=== PATIENT | female | born 1980 | race Caucasian/White ===

== ENCOUNTER 2023-11-20 11:29 | Emergency (ER) | payer MEDICAID, SELFPAY ==
[2023-11-20 11:33] VITALS: BP 162/64; PULSE 56; O2SAT 97
--- NOTE | 2023-11-20 11:37 | ED_ITS ---
HPI - General Adult General Chief complaint: General Medical Stated complaint: WEAK,NAUSEA PER EMS Time Seen by Provider: 11/20/23 21:54 Source: patient Mode of arrival: ambulatory Limitations: no limitations History of Present Illness HPI narrative: Patient from [facility] with history of alcoholic cirrhosis on lactulose could not get her medication for last 1 week comes here for medication refill. Patient denied any confusion no fever no abdominal pain denies any headache or loss of consciousness behaving normally no nausea no vomiting no black stool Related Data Previous Rx's ?Medication ?Instructions ?Recorded lactulose 10 gram/15 mL (15 mL) 45 ml PO TID #1,440 mL 11/20/23 oral solution Allergies Allergy/AdvReac Type Severity Reaction Status Date / Time No Known Allergies Allergy Verified 11/21/23 16:38 Review of Systems 2 Review of Systems: Yes all other systems are reviewed and are negative [facility] Social History Social History Advance Directives: No Advance Directives Information Provided: No Do you have a plan to hurt others: No Plan Physical Exam ED Vital Signs: Vital Signs - 24 hr 11/20/23 17:55 11/20/23 21:50 11/20/23 23:46 Temperature 98.0 F 98.3 F 98.3 F Pulse Rate 67 64 64 Respiratory Rate 16 20 20 Blood Pressure 106/63 116/48 L 116/48 L Pulse Oximetry 95 96 96 Oxygen Delivery Method Room Air Room Air Room Air BMI result Body Mass Index 28.9 Appearance: Alert. Oriented X3. No acute distress. Eyes: No pallor or icterus ENT: Pharynx normal. Oral Mucosa moist Neck: Normal inspection. Neck supple. CVS: Normal heart rate and rhythm. Pulses normal. Respiratory: No respiratory distress. Equal air entry bilateral, no wheezing/rales/rhonchi Abdomen: Soft and nontender. Bowel sounds are present, no mass palpable, no CVA tenderness Skin: Skin warm and dry. Normal skin color. Normal skin turgor. Extremities: No lower extremity edema. No calf tenderness Neuro: Oriented X 3. No motor deficit. No sensory deficit.No cerebellar signs , cranial nerves II-XII intact hepatic flap -ve Course Course Course Narrative: This is a rapid medical exam performed by C. Scooby, AMPOULE EXAMINER: Additional HPI, ROS, PE not included below will be deferred to primary provider. Patient is a 43-year-old female with history of liver disease presenting to the emergency department reporting that she has been out of lactulose for the past 4-5 days. She states that she was receiving lactulose while at [facility] and was discharged with a 1 day supply to sober living and has been without it for 4-5 days. Complains of feeling dizzy, weak, nauseous. Did receive methadone this morning. States she has some left of most of her medications but needs clonidine 0.1mg and lactulose 10g today. Plan: labs Medications Administered Discontinued Medications Generic Name Dose Route Start Last Admin Trade Name Freq PRN Reason Stop Dose Admin Lactulose 30 gm 11/20/23 22:36 11/20/23 22:59 Lactulose 20 Gm/30 Ml Solution PO 11/20/23 22:37 30 gm ONCE ONE Administration Medical Decision Making Medical Decision Making [facility] Narrative: Patient with history of chronic alcoholic cirrhosis without any encephalopathy with elevated ammonia level will prescribe lactulose advised to follow with gastroenterology Lab Data [facility] Lab Attestation statement: I reviewed the patient's lab results. 11/20/23 12:10 11/20/23 12:10 Labs: Lab Results 11/20/23 Range/Units 12:10 WBC 3.3 L (4.8-10.8) X10*3/uL RBC 3.98 L (4.20-5.50) X10*6/uL Hgb 12.0 (12.0-16.0) g/dl Hct 35.3 L (37.0-47.0) % MCV 88.7 (80.0-98.0) fL MCH 30.2 (27.0-33.0) pg MCHC 34.0 (31.0-35.0) g/dl RDW 16.9 H (11.0-16.0) % Plt Count 83 L (160-400) X10*3/uL MPV 8.9 L (9.4-12.3) fL Immature Gran % (Auto) 0.3 (0.0-0.4) % Neut % (Auto) 45.7 (45-73) % Lymph % (Auto) 37.5 (20-40) % Navarro % (Auto) 14.4 H (2-11) % Eos % (Auto) 1.8 (0-4) % Baso % (Auto) 0.3 (0-2) % Lymph # (Auto) 1.3 (1.2-4.9) X10*3/uL Navarro # (Auto) 0.5 (0.1-1.2) X10*3/uL Eos # (Auto) 0.1 (0.0-0.4) X10*3/uL Baso # (Auto) 0.0 (0.0-0.2) X10*3/uL Abs Immat Gran (auto) 0.01 (0.00-0.03) X10*3/uL Absolute Neuts (auto) 1.5 L (2.0-8.3) x10*3/uL Absolute Nucleated RBC 0.000 (0.0-0.012) X10*3/uL Nucleated RBC % (auto) 0.0 (0.0-0.2) /100WBC Sodium 140 (135-145) mmol/L Potassium 4.5 (3.3-5.1) mmol/L Chloride 105 (96-108) mmol/L Carbon Dioxide 25 (22-29) mmol/L Anion Gap 15 (12-20) BUN 18 H (9-16) mg/dL Creatinine 1.23 (0.5-1.4) mg/dL Estim Creat Clear Calc 55.3 Estimated GFR 48 Random Glucose 74 (60-115) mg/dL Calcium 9.8 (8.4-10.2) mg/dL Total Bilirubin 1.4 H (0.0-1.0) mg/dL AST 61 H (5-31) U/L ALT 35 H (0-31) U/L Alkaline Phosphatase 89 (39-117) U/L Ammonia 98 H (13-55) umol/L Total Protein 7.2 (6.5-8.0) g/dL Albumin 3.6 (3.5-5.0) g/dL Amylase 93 (28-100) U/L Lipase 43 (8-78) U/L Beta HCG, Quant < 2 mIU/mL Discharge Plan Discharge Clinical Impression: Alcoholic cirrhosis Patient Disposition: Home, Self-Care Instructions: Cirrhosis (ED) Additional Instructions: Continue your medication follow with your liver specialist Prescriptions: New lactulose 10 gram/15 mL (15 mL) solution 45 ml PO TID Qty: 1440 3RF Referrals: Bennett Dickerson MD [Physician] - 1 week Interventions: ED Discharge Assessment Last Done: 11/20/23 23:46 Discharge Date/Time: 11/20/23 23:47 Print Language: Irish
[2023-11-20 12:01] VITALS: BP 109/55; PULSE 61; RESP 16; TEMP 36.6; O2SAT 97; BMI 28.9
[2023-11-20 12:15] LABS: MANUAL DIFF FLAG NO
[2023-11-20 12:17] LABS: Basophils Percent Auto 0.3 % (0-2); Eosinophils Absolute Auto 0.1 X10*3/uL (0.0-0.4); Eosinophils Percent Auto 1.8 % (0-4); Hematocrit 35.3 % (37.0-47.0); Imm Gran Abs Auto 0.01 X10*3/uL (0.00-0.03); Imm Gran Pct Auto 0.3 % (0.0-0.4); Lymphocytes Absolute Auto 1.3 X10*3/uL (1.2-4.9); Lymphocytes Percent Auto 37.5 % (20-40); Mean Corpuscular Hemoglobin 30.2 pg (27.0-33.0); Mean Corpuscular Volume 88.7 fL (80.0-98.0); Monocytes Absolute Auto 0.5 X10*3/uL (0.1-1.2); Monocytes Percent Auto 14.4 % (2-11); Neutrophils Absolute Auto 1.5 x10*3/uL (2.0-8.3); Neutrophils Percent Auto 45.7 % (45-73); Red Blood Count 3.98 X10*6/uL (4.20-5.50); Red Cell Distribution Width 16.9 % (11.0-16.0); White Blood Count 3.3 X10*3/uL (4.8-10.8)
[2023-11-20 12:22] LABS: Ammonia 98 umol/L (13-55)
[2023-11-20 12:30] LABS: Alanine Aminotransferase 35 U/L (0-31); Albumin Level 3.6 g/dL (3.5-5.0); Alkaline Phosphatase 89 U/L (39-117); Amylase 93 U/L (28-100); Anion Gap 15 (12-20); Aspartate Amino Transferase 61 U/L (5-31); Bilirubin Total 1.4 mg/dL (0.0-1.0); Blood Urea Nitrogen 18 mg/dL (9-16); Calcium 9.8 mg/dL (8.4-10.2); Carbon Dioxide 25 mmol/L (22-29); Chloride 105 mmol/L (96-108); Creatinine Clr Calc Pharmacy 55.3; Estimated Glomerular Filt Rate 48; Glucose Random 74 mg/dL (60-115); Lipase 43 U/L (8-78); Potassium 4.5 mmol/L (3.3-5.1); Sodium 140 mmol/L (135-145); Total Protein 7.2 g/dL (6.5-8.0)
[2023-11-20 12:35] LABS: Mean Platelet Volume 8.9 fL (9.4-12.3); Platelet Count 83 X10*3/uL (160-400)
[2023-11-20 17:55] VITALS: BP 106/63; PULSE 67; RESP 16; TEMP 36.7; O2SAT 95
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
--- OUTSIDE RECORDS SUMMARY | 2023-11-20 18:01 | XMS_ITS | Continuity of Care Document ---
Author Organization [facility] Address [address] [place] [phone]- Care Team Providers Care Slurry Blender Name Role Phone Theodora Goode MD Primary Care Physician Encounter [facility] [id number] Date(s): 04/20/21 - 04/20/[address] [address]- Discharge Disposition: A-D/C Walkout Attending Physician: Not on Staff, Attending MD Admitting Physician: Not on Staff, Admitting MD Referring Physician: Not on Staff, Referring [...] 10/04/20 16:27:00 EDT, Route to Pharmacy Electronically, [facility] #[id number], Partial fill upon patientrequest if the prescription [...] 11/28/20 9:58:00 EDT, Route to Pharmacy Electronically, [facility], Partial fill upon patient request if the prescription is for a schedul... Start Date: 11/28/20 Stop Date: 12/05/20 Status: Ordered lactulose 10 gm/15 ml oral syrup 30 mL = 20 Gm, By Mouth, 4 times a day, # 3,600 mL, 0 Refills, Maintenance, 10/04/20 16:28:00 EDT, Syrup, [facility] #[id number], Partial fill upon patient request if the [...] Refills, Maintenance, 10/31/20 18:10:00 EDT, EC Tablet, [facility] #[id number], Partial fill upon patient request if the [...] 0 Refills, Maintenance, 10/04/20 16:27:00 EDT, Tablet, [facility] #[id number], Partial fill upon patient request if the prescription is for a schedule II opioid drug., 157.5, cm, 10/04/20 14:02:00 E... Start Date: 10/04/20 Status: Ordered Zofran 4 mg oral tablet 1 tablet = 4 mg, By Mouth, Every 8 hours, PRN as needed for nausea/vomiting, # 270 tablet, 3 Refills, Maintenance, 10/31/20 18:10:00 EDT, Tablet, [facility] #[id number], Partial fill upon patient request if the [...]
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
--- OUTSIDE RECORDS SUMMARY | 2023-11-20 18:01 | XMS_ITS | Continuity of Care Document ---
Author Organization [facility] ter Address [address] [place] [id number]- Care Team Providers Care Anesthesiologist Attending Name Role Phone Bo Espinoza Primary Care Physician Encounter [facility] [place] Date(s): 05/09/22 - 06/09/[address] [address] Attending Physician: Sukhwinder Nguyen MD Admitting Physician: Sukhwinder Nguyen MD Allergies, Adverse Reactions, Alerts Substance Reaction Severity Status Egg Allergy Active Immunizations Given and Recorded Vaccine Date Status Refusal Reason SARS-CoV-2 (COVID-19) mRNA-1273 vaccine 04/29/21 R ecorded [...] vaccine within the last 5 years Medications cyclobenzaprine 10 mg oral tablet 10 mg, 1, tablet, By Mouth, Daily at bedtime, PRN, Maintenance, Spasm, 05/12/22 9:39:00 EDT, Partial fill upon patient request if the prescription is for a schedule II opioid drug. Start Date: 05/12/22 Status: Ordered gabapentin 800 mg oral tablet 1 tablet = 800 mg, By Mouth, 3 times a day, for pain, # 60, 2 Refills, Maintenance, 05/18/22 9:32:00 EST, Partial fill upon patient request if the prescription is for a schedule II opioid drug. Start Date: 05/18/22 Status: Ordered lactulose 10 gm/15 ml oral syrup 30 mL = 20 Gm, By Mouth, 4 times a day, # 1,680 mL, 3 Refills, Maintenance, 05/01/22 9:45:00 EDT, Syrup, [facility]/pharmacy #[id number], Partial fill upon patient request if the prescription is for a schedule IIopioid drug., 30 mL By Mouth 4 times a day,x14 days... Start Date: 05/01/22 Stop Date: 06/26/22 Status: Ordered Lasix 20 mg oral tablet 20 mg, 1, tablet, By Mouth, Daily, # 30 tablet, Refills 0, Tot. Refills 0, Maintenance, 05/23/22 13:04:00 EST, Route to Pharmacy Electronically, [facility], Partial fill upon patient request if the prescription is for a schedule II opioi... Start Date: 05/23/22 Status: Ordered Methadone = 24 mg, By Mouth, Daily, 0 Refills, Maintenance, 05/12/22 9:40:00 EDT, Partial fill upon patient request if the prescription is for a schedule II opioid drug. Start Date: 05/12/22 Status: Ordered spironolactone 100 mg oral tablet 100 mg, 1, tablet, By Mouth, Daily, # 30 tablet, Refills 0, Tot. Refills 0, Maintenance, 05/22/22 13:39:00 EST, Route to Pharmacy Electronically, [facility], Partial fill upon patient request if the prescription is for a schedule II opio... Start Date: 05/22/22 Stop Date: 06/21/22 Status: Ordered Zofran 4 mg oral tablet 1 tablet = 4 mg, By Mouth, Every 8 hours, PRN as needed for nausea/vomiting, # 40 tablet, 2 Refills, Maintenance, 02/02/22 10:18:00 EDT, Tablet, [facility]/pharmacy #[id number], Partial fill upon patient request [...] Team Personnel Name: Bj Rivera MD Position: [facility] GI MD Member Role: Lifetime Consulting Physician Address: Address: [address] [place] [address], [address] [facility] [place] [address]- [place] Name: Aimee Pereira RN Position: [facility] RN Member Role: Primary Care Nurse Name: Linda Sandy RN Position: [facility] RN Member Role: Primary Care Nurse Name: Isabella Merlos RN Position: [facility] RN Member Role: Primary Care Nurse Name: Luke Russell RN Position: [facility] RN Member Role: Primary Care Nurse Name: Virgil Campos RN Position: [facility] RN Member Role: Primary Care Nurse Name: Cliff Mo RN Position: [facility] RN Member Role: Primary Care Nurse Name: Goldy Lamar Position: [facility] RN Member Role: Primary Care Nurse Name: Katina Kelly RN Position: [facility] RN Member Role: Primary Care Nurse Name: Rubia Merida RN Position: [facility] RN Member Role: Primary Care Nurse Name: Jonh Melgar MD Position: [facility] Physician -Physician Practices Member Role: Lifetime Consulting Physician Address: Address: [address] [place] [address]- [place] Name: Anibal Peace RN Position: [facility] RN Member Role: Primary Care Nurse Name: Colleen Leal RN Position: [facility] RN Member Role: Primary Care Nurse Name: Davonte Rosario RN Position: [facility] RN Member Role: Primary Care Nurse Name: Kemal Pulido MD Position: [facility] Renal MD Member Role: Lifetime Consulting Physician Address: Address: [address] [facility] [place] [address]- [place] Name: Mariam Melendrez RN Position: [facility] RN Member Role: Primary Care Nurse Name: Leticia Lobato RN Position: [facility] RN Member Role: Primary Care Nurse Name: Bo Espinoza Position: [facility] Outreach Member Role: PCP Address: Address: [address] [place] [address]- Name: Kyle Lui RN Position: [facility] RN Member Role: Primary Care Nurse Name: Janett Mendoza RN Position: S RN Member Role: Primary Care Nurse Name: Dimas Vazquez RN Position: [facility] RN Member Role: Primary Care Nurse Name: Tyson Blum MD Position: [facility] Renal MD Member Role: Lifetime Consulting Physician Address: Address: [address] [facility] [place] [address]- Name: Emma Barkley RN Position: [facility] RN Member Role: Primary Care Nurse Name: Emma Hardy RN Position: [facility] RN Member Role: Primary Care Nurse Name: Janell Gomez Position: [facility] RN Member Role: Primary Care Nurse Name: Orlando Conn RN Position: [facility] RN Member Role: Primary Care Nurse Care Team Related Persons Name: MELANIE AGGARWAL Address: [address] [place] [address] Name: LUIS F ROBERTS Address: home [address] [place] [address]
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
--- OUTSIDE RECORDS SUMMARY | 2023-11-20 18:01 | XMS_ITS | Continuity of Care Document ---
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 Start Date: 11/08/21 Status: Ordered Epclusa 400 mg-100 mg oral tablet 1 tablet, By Mouth, Daily, for 24 week(s), # 168 tablet, 0 Refills, Acute 04/20/22 15:20:00 EDT, 11/03/21 15:20:00 EDT, Tablet, [facility], Partial fill upon patient request if the prescription is for a schedule II opioid drug., 158,... Start Date: 11/03/21 Stop Date: 04/20/22 Status: Ordered gabapentin 300 mg oral capsule 600 mg, 2, capsule, By Mouth, 2 times a day, # 28 capsule, Refills 0, Tot. Refills 0, Maintenance, 06/08/21 8:48:00 EST, Route to Pharmacy Electronically, [facility]/pharmacy #[id number], Partial fill upon patient request if the prescription is for a schedule II o... Start Date: 06/08/21 Stop Date: 06/15/21 Status: Ordered lactulose 10 gm/15 ml oral syrup 30 mL = 20 Gm, By Mouth, 4 times a day, # 840 mL, 0 Refills, Maintenance, 01/10/22 16:05:00 EDT, Syrup, [facility]/pharmacy #[id number], Partial fill upon patient request if the prescription is for a schedule II opioid drug., 30 mL By Mouth 4 times a day,x7 days,... Start Date: 01/10/22 Stop Date: 01/17/22 Status: Ordered Lasix 40 mg oral tablet 40 mg, 1, tablet, By Mouth, Daily, # 30 tablet, Refills 3, Tot. Refills 3, Maintenance, 12/29/21 14:22:00 EDT, Route to Pharmacy Electronically, [facility] #[id number], Partial fill upon patient request if the prescription is for a schedule II opioid drug... Start Date: 12/29/21 Status: Ordered methadone 10 mg/5 mL oral solution 11 mL = 22 mg, By Mouth, Daily, 0 Refills, Maintenance, 11/12/21 10:14:00 EDT, Solution, Partial fill upon patient request if the prescription is for a schedule II opioid drug. Start Date: 11/12/21 Status: Ordered spironolactone 100 mg oral tablet 100 mg, 1, tablet, By Mouth, Daily, # 7 tablet, Refills 0, Tot. Refills 0, Maintenance, 06/08/21 8:48:00 EST, Route to Pharmacy Electronically, [facility] #[id number], Partial fill upon patient request if the prescription is for a schedule II opioid drug.... Start Date: 06/08/21 Stop Date: 06/15/21 Status: Ordered Zofran 4 mg oral tablet 1 tablet = 4 mg, By Mouth, Every 8 hours, PRN as needed for nausea/vomiting, # 40 tablet, 2 Refills, Maintenance, 12/20/21 14:25:00 EDT, Tablet, [id number], Partial fill upon patient request if the prescription is for a schedule II opioid drug... Start Date: 12/20/21 Status: Ordered Problem List Condition Effective Dates [...]
--- OUTSIDE RECORDS SUMMARY | 2023-11-20 18:01 | XMS_ITS | Continuity of Care Document ---
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 Start Date: 11/03/21 Stop Date: 04/20/22 Status: Ordered gabapentin 300 mg oral capsule 600 mg, 2, capsule, By Mouth, 2 times a day, # 28 capsule, Refills 0, Tot. Refills 0, Maintenance, 12/02/21 8:48:00 EST, Route to Pharmacy Electronically, [facility] #[id number], Partial fill upon patient request if the prescription is for a schedule II o... Start Date: 06/08/21 Stop Date: 06/15/21 Status: Ordered lactulose 10 gm/15 ml oral syrup 30 mL = 20 Gm, By Mouth, 4 times a day, # 840 mL, 0 Refills, Maintenance, 01/10/22 16:05:00 EDT, Syrup, [id number], Partial fill upon patient request [...] 8:48:00 EST, Route to Pharmacy Electronically, [facility][id number], Partial fill upon patient request if [...]
--- OUTSIDE RECORDS SUMMARY | 2023-11-20 18:01 | XMS_ITS | Continuity of Care Document ---
Author Organization [facility] Address [address] [place] [phone]- Care Team Providers Care Office Director Name Role Phone Rupa FERNANDEZ, Theodora Melendez Primary Care Physician En[place] [facility] [place](s): 07/31/21 - 08/31/21 [facility] [address] [place] [phone]- Attending Physician: Bj Rivera MD Admitting Physician: Bj Rivera MD Referring Physician: Theodora Goode MD Allergies, Adverse Reactions, Alerts No Known [...] 06/08/21 8:45:00 EST, Route to Pharmacy Electronically, [facility] #[id number], Partial fill upon patient request ifthe prescription is for a schedule II opioid drug.,... Start Date: 06/08/21 Stop Date: 06/15/21 Status: Ordered furosemide 40 mg oral tablet 40 mg, 1, tablet, By Mouth, 2 times a day, # 14 tablet, Refills 0, Tot. Refills 0, Maintenance, 06/08/21 8:47:00 EST, Route to Pharmacy Electronically, [facility]/pharmacy #[id number], Partial fill upon patient request if the prescription is for a schedule II opio... Start Date: 06/08/21 Stop Date: 06/15/21 Status: Ordered gabapentin 300 mg oral capsule 300 mg, 1, capsule, By Mouth, 3 times a day, # 21 capsule, Refills 0, Tot. Refills 0, Maintenance, 06/08/21 8:48:00 EST, Route to Pharmacy Electronically, [facility]/pharmacy #[id number], Partial fill upon patient request if the prescription is for a schedule II o... Start Date: 06/08/21 Stop Date: 06/15/21 Status: Ordered lactulose 10 gm/15 ml oral syrup 30 mL = 20 Gm, By Mouth, 4 times a day, # 840 mL, 0 Refills, Maintenance, 06/08/21 8:45:00 EST, Syrup, [facility]/pharmacy #[id number], Partial fill upon patient request if [...] 06/08/21 8:48:00 EST, Route to Pharmacy Electronically, [facility]/pharmacy #[id number], Partial fill upon patient request if [...]
--- OUTSIDE RECORDS SUMMARY | 2023-11-20 18:01 | XMS_ITS | Continuity of Care Document ---
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 people with colds, bronchitis, or skin conditions. ??? Practice good personal??hygiene. Wash your hands often. This is especially important if you have a catheter in place when you leave the hospital. Doing so helps keep you safe from infection. ??? Take your medicines exactly as directed. ??? You may need frequent blood and urine tests. These are done to monitor your kidney function. ?? Follow-up care Follow up with your healthcare provider, or as advised. ?? When to call your healthcare provider Call your??healthcare provider??right away if you have any of these: ??? Signs of bladder infection, such as urinating more often, burning or pain when you pee, pain above your pubic bone, blood in your urine, or trouble starting your urine stream ??? Signs of infection around your catheter, such as redness, swelling, warmth, or fluid leaking ??? Rapid weight loss or weight gain, such as 3??pounds or more in 24 hours or 6 pounds or more in 7 days ??? Fever above 100.4?? F ( 38??C ) or as directed by your healthcare provider ??? Chills ??? Muscle aches ??? Night sweats ??? Very little or no urine output ??? Swelling of your hands, legs, or feet ??? Back pain ??? Abdominal pain ??? Extreme tir edness ?? Last Reviewed Date: 2019 ?? [id number] Anonymous You. All rights reserved. This information is not intended as a substitute for professional medical care. Always follow your healthcare professional's instructions. ?? * Event Display: Cardiac Rhythm Strips Authored Date: Hospital Progress note * Brandy Arreola RN: PERFORM, SIGN, VERIFY Event Display: Progress Note Hospital Authored Date: Patient: YUDI CALDERON Age: 41 years Sex: Female : 1980 Associated Diagnoses: None Author: Brandy Arreola RN Findings Problem Related to Alteration in Genitourinary : Alteration in Genitourinary Function/new 05/23/2022 9:00 EST Alteration in Status Related to Other: LELE abd pain Goals & Outcomes, Genitourinary Pt will achieve normal/improved fluid balance, Pt will maintainadequate GI function appropriate for pt, Pt will maintain adequate function appropriate for pt, Pt will maintain normal fluid balance, Pt will resume normal pattern of elimination, Pt/caregiver will state understanding of self-care skills Interventions, Assess/monitor/maintain Genitourinary status, Assist & encourage pt with meticulous vale care, Encourage PO fluid intake as allowed by diet BH Goals/Interventions, Genitourinary Yes Genitourinary, Problem Start 05/23/2022 9:00 Reviewed Plan with, Genitourinary Patient Patient Progression, Genitourinary Plan Initiation Genitourinary, Problem Ongoing Yes . Nursing Data Genitourinary Data. : Genitourinary Data. 05/23/2022 9:00 EST Genitourinary Symptoms Decreased urine output WNL except . Evaluation Pt alert and oriented x4. Lethargic, appears under the influence at times. FRANKLIN strong, able to ambulate to BR with supervision. Denies any pain or discomfort at time of assessment. Trace edema BLE. SR on tele. LSCTA, no s/s of resp distress/SOB. POS BS all quads, abd soft/nontender. Denies any hematuria, or discomfort with urination. Informed pt urine sample was needed, pt stated she was aware. Pt currently asleep in bed, safety precautions in place.. * Erma Dodson RN: PERFORM, SIGN, VERIFY Event Display: Progress Note Hospital Authored Date: Patient: YUDI CALDERON Age: 41 years Sex: Female : 1980 Associated Diagnoses: None Author: Erma Dodson RN Findings Evaluation (Paient A+Ox3. Sleepy most of the day. Tele monitor shows SR. Patient self removed IV this morning and refuses any further IVF, Dr. Figueredo aware. IV abx changed to PO. Continues to have hematuria, urine specimen sent. Ambulates independently. Will monitor.) Discharge Information Case Management Discharge Plan : Case Management Discharge Plan Data 05/15/2022 15:36 EST Discharge Level of Care at Discharge Home/Assisted/Foster Care * Bea FERNANDEZ, Dannie: PERFORM Event Display: Progress Note Hospital Authored Date: Patient: ??YUDI CALDERON ? Age:??41 Years?Sex:??Female?:??1980?? Subjective Follow-up on abdomen pain,??acute kidney injury,??urinary tract infection. ?? Patient seen and evaluated in a.m. Patient not very cooperative, ripped out IV access Complains of hand pain Creatinine better,??recommended to drink p.o. more CT sonogram???unremarkable Still waiting for UA and??ammonia No mental status changes ? Possible discharge home tomorrow/Saturday if abdomen pain and??creatinine better ? Review of Systems No fever,??no headache?? complains of dysuria, low urine output-drinking more water, Complains of abdomen pain bilateral flank, ??more on left??quadrant???no diarrhea Patient ambulates slowly ??holding abdomen due to pain No nausea vomiting or diarrhea ?? Most of the review of systems is negative Review of Systems Objective Measurements?? Weight: 68.1 kg (05/20/22) ?? Vital Signs?? Temperature: 98.1 DegF (05/22/22 10:45:00) Temperature Route: Oral (05/22/22 10:45:00) Pulse Rate: 86 bpm (05/22/22 10:45:00) Respiratory Rate: 18 br/min (05/22/22 10:45:00) Systolic Blood Pressure: 95 mm Hg (05/22/22 10:45:00) Diastolic Blood Pressure:??51 mm Hg??Low (05/22/22 10:45:00) Blood pressure sites: Arm, left (05/22/22 10:45:00) Mean Arterial Pressure: 71 mm Hg (05/22/22 03:32:00) Pulse Pressure: 60 mm Hg (05/22/22 03:32:00) Oxygen Saturation: 100 % (05/22/22 10:45:00) Mode of Delivery (Oxygen): Room air (05/22/22 10:45:00) Early Warning Score:??10??Critical (05/22/22 10:47:19) ? Intake/Output? 05/20 23:58 05/22 07:00 05/21 07:00 05/20 07:00 05/19 07:00 ?? 05/22 11:42 05/22 11:42 05/22 06:59 05/21 06:59 05/20 06:59 Intake ? 1575 ?275 ? 1300 ?0 ?0 Output ?0 ?0 ?0 ?0 ?0 Net Total ? 1575 ?275 ? 1300 ?0 ?0 ? Urine Count ?1 ?1 ?0 ?0 ?0 ? Physical Exam ? General:??Alert, awake, not in?? acute cardiopulmonary distress.?? Conversant, complains of bilateral flank pain and abdomen pain, more on left side Eyes:??no eye redness Ear, Nose and Throat:??Oropharynx clear, mucous membranes moist.??no thrush Neck:??Supple, Full range of motion. Respiratory:??Clear to auscultation??. No wheezing, rales or rhonchi. Cardiovascular:??Heart sounds normal. Regular rate and rhythm, no murmurs Gastrointestinal:??Abdomen mildly distended,??tenderness on lower abdomen,??bilateral abdomen, epigastric tenderness-better Genitourinary:??No costovertebral angle tenderness. Neurologic:??Cranial nerves II-XII grossly intact. No focal neurological deficits.?? Skin:??No rashes or lesions. No edema. Musculoskeletal:??No cyanosis or clubbing. No gross deformities. _ Home Medications Celecoxib (celecoxib 200 mg oral capsule)?1?capsule?200?Milligram?By Mouth?2 times a day?as needed for pain Cyclobenzaprine (cyclobenzaprine 10 mg oral tablet)?10?Milligram?1?tablet?By Mouth?Daily at bedtime?as needed?Spasm Furosemide (Lasix 40 mg oral tablet)?40?Milligram?1?tablet?By Mouth?Daily?for 30?Days Gabapentin (gabapentin 800 mg oral tablet)?1?tab(s)?800?Milligram?By Mouth?3 times a day?for pain Lactulose (lactulose 10 gm/15 ml oral syrup)?30?Milliliter?20?gram?By Mouth?4 times a day?for 14?Days Methadone?24?Milligram?By Mouth?Daily Ondansetron (Zofran 4 mg oral tablet)?1?tab(s)?4?Milligram?By Mouth?Every 8 hours?as needed?as needed for nausea/vomiting Spironolactone (spironolactone 100 mg oral tablet)?100?Milligram?1?tablet?By Mouth?Daily?for 30?Days ? Inpatient Medications Medications (16) Active SCHEDULED: (7) Ceftriaxone 1 Gm Inj (Rocephin Inj) ??1 Gm, IVPB, Every 24 hours Gabapentin 300 mg Capsule (gabapentin 300 mg oral capsule) ??300 mg, By Mouth, 2 times a day Heparin 5000 units/mL Inj (1 mL) (Heparin Inj) ??5,000 units 1 mL, Subcutaneous Injection, 3 times a day Lactulose 20 Gm/30mL Syrup (lactulose 10 gm/15 ml oral syrup) ??20 Gm 30 mL, By Mouth, 3 times a day Methadone 5 mg Tablet (methadone 10 mg oral tablet) ??25 mg, By Mouth, Daily NaCl 0.9% Flush 3ml (NaCL 0.9% Flush) ??3 mL, IV Push, Every 8 hours Phenazopyridine 100 mg Tablet (Pyridium Tablet) ??100 mg, By Mouth, 2 times a day CONTINUOUS: (1) Lactated Ringers (1000 mL) Cont IV 1,000 mL (Lactated Ringers 1,000 mL) ??1,000 mL, IV Infusion, 100 mL/hr PRN: (8) Acetaminophen 325 mg Tablet (Tylenol 325 mg oral tablet) ??650 mg, By Mouth, Every 6 hours Dextromethorphan-Guaifenesin 20 mg-200 mg/10 mL Liqu UD (Robitussin DM Liquid) ??10 mL, By Mouth, Every 4 hours HYDROmorphone 0.5 mg/0.5 mL Inj Syringe (Dilaudid Inj) ??0.5 mg 0.5 mL, IV Push Slowly, Every 4 hours Melatonin 3 mg Tablet (Melatonin Tablet) ??3 mg, By Mouth, Daily at bedtime NaCl 0.9% Flush 3ml (NaCL 0.9% Flush) ??3 mL, IV Push, Every 8 hours Ondansetron 4 mg ODT (ondansetron 4 mg oral tablet, disintegrating) ??4 mg, By Mouth, Every 6 hours Polyethylene Glycol 17 Gm Powder (MiraLax Powder) ??17 Gm 1 pack/packet, By Mouth, Daily Simethicone 80 mg Chewable Tablet (Simethicone Tablet) ??80 mg, Chew, 3 times a day ? Results Recent Labs BLOOD COUNT & DIFF WBC 2.3 k/mm3 (Low)?? 05/22/2022 01:51 RBC 2.42 m/mm3 (Low)?? 05/22/2022 01:51 Hgb 7.3 Gm/dL (Low)?? 05/22/2022 01:51 Hct 22.4 % (Low)?? 05/22/2022 01:51 MCV 92.6 femtoliters ()?? 05/22/2022 01:51 MCH 30.2 pg ()?? 05/22/2022 01:51 MCHC 32.6 g/dL (Low)?? 05/22/2022 01:51 Platelet Count 68 k/mm3 (Low)?? 05/22/2022 01:51 RDW-SD 57.1 femtoliters (High)?? 05/22/2022 01:51 MPV 11.7 femtoliters ()?? 05/22/2022 01:51 Nucleated RBC (Automated) 0.0 #/100 WBC'S ()?? 05/22/2022 01:51 Abs. NRBC 0.0 k/mm3 ()?? 05/22/2022 01:51 ?? CHEM GENERAL Sodium 140 mmol/L ()?? 05/22/2022 01:51 Potassium 4.3 mmol/L ()?? 05/22/2022 01:51 Chloride 108 mmol/L (High)?? 05/22/2022 01:51 Bicarbonate Level 27 mmol/L ()?? 05/22/2022 01:51 Anion Gap 5 ()?? 05/22/2022 01:51 Glucose Level 92 mg/dL ()?? 05/21/2022 03:28 BUN 30 mg/dL (High)?? 05/21/2022 03:28 Creatinine-Blood 2.0 mg/dL (High)?? 05/22/2022 01:51 Estimated GFR Creatinine 31 ML/MIN/1.73 M2 ()?? 05/22/2022 01:51 Calcium 8.5 mg/dL (Low)?? 05/21/2022 03:28 Magnesium 2.1 mg/dL ()?? 05/22/2022 01:51 Protein, Total 4.7 Gm/dL (Low)?? 05/21/2022 03:28 Albumin 2.3 Gm/dL (Low)?? 05/21/2022 03:28 LDH 433 units/L (High)?? 05/21/2022 03:28 Alkaline Phosphatase 151 units/L (High)?? 05/21/2022 03:28 Lipase 45 units/L ()?? 05/21/2022 03:28 AST (SGOT) 153 units/L (High)?? 05/21/2022 03:28 ALT (SGPT) 52 units/L (High)?? 05/21/2022 03:28 Bilirubin, Total 2.3 mg/dL (High)?? 05/21/2022 03:28 Bilirubin, Direct 1.4 mg/dL (High)?? 05/21/2022 03:28 Bilirubin, Indirect 0.9 mg/dL (High)?? 05/21/2022 03:28 Lactate 1.9 mmol/L ()?? 05/21/2022 03:28 C-Reactive Protein 0.4 mg/dL ()?? 05/22/2022 01:51 ?? IMMUNOLOGY GENERAL Haptoglobin <10 mg/dL (Low)?? 05/21/2022 03:28 ?? TOXICOLOGY/TDM Ethanol, Serum or Plasma NONE DETECTED mg/dL ()?? 05/21/2022 03:28 ?? VIROLOGY COVID-19 PCR Specimen Source NASAL ()?? 05/21/2022 00:15 COVID-19 PCR Result NEGATIVE ()?? 05/21/2022 00:15 ? Assessment/Plan ?? with resolved splenomegaly, unchanged tubes, unchanged left nephroureteral stent at mild left pelvocaliectasis.?? Patient received lactulose, KCl 40 mEq and 1 L fluid bolus and will be admitted to observation medicine service for further management for abdomen pain, dysuria,??acute kidney injury ? LELE (acute kidney injury) Burning urination:??Presumed urinary tract infection History of obstructive uropathy S/p??left ureteral stent Complains of dysuria, UA pending?? low urine output??on admission Will hold off on Lasix and spironolactone??for now??until LELE resolves Follow with renal ultrasound Bladder scan??every shift??for any urinary retention, if retaining will do??straight cath/[place] CT abdomen???Unchanged left nephroureteral stent and mild left pelvocaliectasi??without mental status changes Had significant dysuria??added Rocephin??even though urine is pending Abdomen sonogram -Cirrhotic appearance to the liver. Minimal ascites. Patient ripped out IV access,??does not want IV fluid???01/19 hold off on celecoxib???Home medication Continue Dilaudid,??gabapentin,??methadone Continue??Rocephin for UTI ? Alcoholic liver cirrhosis Transaminitis -elevated LFTs above baseline Hyperammonemia??without??mental status changes ??trend LFTs Lasix and spironolactone on hold due to LELE Continue lactulose Monitor ammonia-no mental status changes ? opioid use disorder - on methadone 25??mg daily?? verified?? dose???continue methadone ? Code???full, confirmed with patient at bedside Diet???cardiac DVT prophylaxis???subcu heparin ? Discharge plan???if abdomen pain better,??creatinine better, possible discharge home tomorrow??Saturday.?? pl Recheck UA before discharge * Bea FERNANDEZ, Dannie: PERFORM Event Display: Progress Note Hospital Authored Date: [id number] Currently on IV Rocephin for extreme dysuria, UA pending. ??Patient refused IV access, ripped out her IV. ??Rocephin changed to p.o. Keflex CT Abdomen and Pelvis WO contrast * JAYASHREE Clifton S: TRANSCAbdirahman Corbett MD: VERIFY Bola Bartlett MD: SIGN Event Display: Result: Authored Date: [id number] CT Abdomen and Pelvis W/O Contrast HISTORY: Pain. Left flank pain. TECHNIQUE: Spiral CT through the abdomen and pelvis without IV contrast formatted in 3 planes. Thisstudy was performed oral contrast. Weight-based protocol using automatic tube modulation was used to optimize exposure parameters. CTDIvol Body: 10.70 mGy, DLP Body: 529 mGy*cm. COMPARISON: 05/11/2022. 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 Visualized Chest: Lung bases are clear. No pleural effusion. The heart is normal in size. No pericardial effusion. Diaphragm: Normal. Liver: Unchanged TIPS. Gallbladder: Not well visualized due to motion artifact. Bile ducts: No biliary ductal dilation. Spleen: Resolved splenomegaly. Pancreas: Normal. Adrenal glands: Normal. Kidneys and ureters: Unchanged mild left pelvocaliectasis. No renal stones. No suspicious masses. Unchanged left nephroureteral stent . Bladder: Normal. Reproductive organs: Unremarkable. Stomach, small bowel, and large bowel: Normal. Appendix: Normal. Peritoneum and retroperitoneum: No ascites or pneumoperitoneum. No omental or mesenteric lesions. Lymph nodes: No enlarged lymph nodes. Blood vessels: Normal. No aneurysm. Abdominal and pelvic wall: Unremarkable. Bones: Moderate degenerative changes at L5-S1. IMPRESSION: Resolved splenomegaly. Unchanged tips. Unchanged left nephroureteral stent and mild left pelvocaliectasis. I have personally reviewed the images and I agree with this report. WSN: [id number] Ordering Physician: Mariam Brice Dictated By: Bola Bartlett MD Dictated Date/Time: 05/20/22 11:17 p Reviewed By: Abdirahman Cleaning MD Signed By: Abdirahman Cleaning MD Signed Date/Time: 05/20/22 11:22 pm Transcribed By: CSSue Transcribed Date/Time: 05/20/22 11:09 pm US Abdomen * JAYASHREE Clifton S: TRANSCBlu Preciado MD: VERIFY Event Display: Result: Authored Date: [id number] Abdomen ultrasound dated May 21, 2022. Comparison films are from May 24, 2022. HISTORY: Question biliary obstruction. Pain. FINDINGS: Today's study is limited as the patient was difficult to awaken and was unable to hold her breath to cooperate with image acquisition. The liver is heterogeneously increased in echotexture. The echotexture is coarsened. The liver margin is smooth. Flow in the portal vein is hepatopedal. A TIPS shunt is demonstrated. There is trace free fluid around the liver. The gallbladder is physiologically distended. A small amount of free fluid is noted around it. No calculus or obstruction is identified. The sonographic Ty sign is negative. The right kidney measures 11.3 cm in length. Renal parenchymal thickness and cortical medullary differentiation are well preserved. No calculus or obstruction is identified. The left kidney measures 11.9 cm in length. Renal parenchymal thickness and cortical medullary differentiation are well preserved. There is some very minimal fullness of the pelvis measuring 8 mm. There is a 10 mm upper pole cyst. No calculus or obstruction is identified. The spleen is enlarged at 15.8 cm. No focal abnormality is identified. The abdominal aorta is fusiform in shape measuring 2.5 cm proximally, 2.1 cm mid and 1.8 cm distally. The pancreas is obscured by bowel gas. IMPRESSION: Cirrhotic appearance to the liver. Minimal ascites. Left upper pole renal cyst. Splenomegaly. Examination [id number]. Thank you for allowing me to participate in the care of this patient. WSN: [id number] Ordering Physician: Madai Morales Dictated By: Blu Hart MD Dictated Date/Time: 05/21/22 6:38 pm Reviewed By: Blu Hart MD Signed By: Blu Hart MD Signed Date/Time: 05/21/22 6:38 pm Transcribed By: TATE Transcribed Date/Time: 05/21/22 6:34 pm Patient Care team information Care Team Personnel Name: Bj Rivera MD Position: [facility] GI MD Member Role: Lifetime Consulting Physician Address: Address: [address] [place] [address], [address] [facility] [place], [place] [address] Name: Aimee Pereira RN Position: [facility] RN Member Role: Primary Care Nurse Name: Linda Sandy RN Position: [facility] RN Member Role: Primary Care Nurse Name: Isabella Merlos RN Position: [facility] RN Member Role: Primary Care Nurse Name: Luke Russell RN Position: [facility] RN Member Role: Primary Care Nurse Name: Virgil Campos RN Position: [facility] RN Member Role: Primary Care Nurse Name: Cliff Mo RN Position: [facility] RN Member Role: Primary Care Nurse Name: Goldy Lamar Position: [facility] RN Member Role: Primary Care Nurse Name: Katina Kelly RN Position: [facility] RN Member Role: Primary Care Nurse Name: Rubia Merida RN Position: [facility] RN Member Role: Primary Care Nurse Name: Anibal Peace RN Position: [facility] RN Member Role: Primary Care Nurse Name: Colleen Leal RN Position: [facility] RN Member Role: Primary Care Nurse Name: Davonte Rosario RN Position: [facility] RN Member Role: Primary Care Nurse Name: Kemal Pulido MD Position: [facility] Renal MD Member Role: Lifetime Consulting Physician Address: Address: [address] [place] [address] [facility] Name: Mariam Melendrez RN Position: [facility] RN Member Role: Primary Care Nurse Name: Leticia Lobato RN Position: [facility] RN Member Role: Primary Care Nurse Name: Bo Espinoza Position: [facility] Outreach Member Role: PCP Address: Address: [address] [place] [address] Name: Kyle Lui RN Position: [facility] RN Member Role: Primary Care Nurse Name: Janett Mendoza RN Position: [facility] RN Member Role: Primary Care Nurse Name: Dimas Vazquez RN Position: [facility] RN Member Role: Primary Care Nurse Name: Tyson Blum MD Position: [facility] Renal MD Member Role: Lifetime Consulting Physician Address: Address: [address] [place] [address] [facility] [address] Name: Emma Barkley RN Position: [facility] RN Member Role: Primary Care Nurse Name: Emma Hardy RN Position: [facility] RN Member Role: Primary Care Nurse Name: Janell Gomez Position: [facility] RN Member Role: Primary Care Nurse Name: Orlando Conn RN Position: [facility] RN Member Role: Primary Care Nurse Name: *Kentrell ACUNA Attending Position: [facility] ED Medicine MD Name: Mariam Brice DO Position: [facility] Resident Member Role: ED Resident Address: Address: [address] [place] [id number] Name: Hunter Yuan Position: [facility] ED TA [facility] Member Role: Cardiothoracic Surgeon Name: Fartun Reeves RN Position: [facility] ED RN W/OE and Tasks Member Role: Patient Care Provider Care Team Related Persons Name: GARCIA AGGARWALH Address: home [address] [place] [address] Name: LUIS F ROBERTS Address: home [address] [place] [address]
--- OUTSIDE RECORDS SUMMARY | 2023-11-20 18:01 | XMS_ITS | Continuity of Care Document ---
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 Contrast CT Abdomen and Pelvis W/O Contrast? IMPRESSION:? 1. ??No evidence of kidney stone or hydronephrosis. Appropriate position of the left double-J ureteral stent 2. ??Cirrhosis with splenomegaly. 3. ??Mild dilation of the common bile duct up to 8 mm. Recommend correlation with liver function tests. EKG study * Event Display: ECG 12-Lead Authored Date: Please click on pdf link to open report * Event Display: ECG 12-Lead Authored Date: Ventricular Rate: 84 BPM Atrial Rate: 84 BPM P-R Interval: 134 ms QRS Duration: 88 ms Q-T Interval: 430 ms QTC Calculation(Bazett): 508 ms P [place]: 72 degrees R [place]: 32 degrees T [place]: 53 degrees Critical Test Result: Long QTc Normal sinus rhythm Possible Left atrial enlargement Prolonged QT Abnormal ECG When compared with ECG of 20-JUL-2022 12:05, Nonspecific T wave abnormality no longer evident in Inferior leads Confirmed by MILIND MCLEAN ([id number]) on 07/25/2022 5:01:48 PM Climax: MILIND MCLEAN * Event Display: ECG 12-Lead Authored Date: Please click on pdf link to open report * Event Display: ECG 12-Lead Authored Date: Ventricular Rate: 85 BPM Atrial Rate: 85 BPM P-R Interval: 138 ms QRS Duration: 88 ms Q-T Interval: 428 ms QTC Calculation(Bazett): 509 ms P [place]: 63 degrees R [place]: 14 degrees T [place]: 29 degrees Normal sinus rhythm Possible Left atrial enlargement Minimal voltage criteria for LVH, may be normal variant ( Manish product ) Prolonged QT Abnormal ECG When compared with ECG of 20-MAY-2022 23:38, T wave inversion no longer evident in Lateral leads QT has shortened Confirmed by SINTIA FERNANDEZ [facility] ([id number]) on 07/23/2022 5:22:31 PM Climax: [facility] * Sol Francisco RN: PERFORM, SIGN, VERIFY Event Display: Progress [facility] Authored Date: Patient: YUDI CALDERON Age: 41 years Sex: Female : 1980 Associated Diagnoses: None Author: Sol Francisco RN Findings Evaluation Bed became available in APtu this morning, rapid covid test done, paged psych for new section 12. report given to JOSE Alarcon on APTU, pt updated on plan to transition to aptu and pt left unit with aptustaff via wheelchair. . * Anat Logan RN: PERFORM, SIGN, VERIFY Event Display: Progress Note Hospital Authored Date: Patient: YUDI CALDERON Age: 41 years Sex: Female : 1980 Associated Diagnoses: None Author: Anat Logan RN Findings Evaluation Patient AxOx4; denies any paresthesia in extremities. Patient endorses severe pain and tenderness to palpation in RUQ and LLQ at 8/10; back pain at 8/10; intermittent dizziness (not dizzy at the timeof assessment); mild SOB; mild nausea; severe headache at 7/10; and dry cough. Pain and headache managed with scheduled Gabapentin 800 mg and PRN Oxycodone 5 mg admin at 2230 and 0415, with + effect.PRN Flexeril 10 mg admin at 1958, per patient request. PRN Melatonin 3 mg admin at 1959 for sleep, with + effect. Patient reminded to change positions slowly, and to ask for assistance, when needed. Skin intact; extremities warm and dry; no edema noted. Palpable radial and pedal pulses, bilaterally. Patient afebrile; normotensive. Lung sounds clear; oxygen sats: 95-98% on RA. Cough managed with one-time dose of cough syrup and nausea managed with one-time dose of SL Zofran 4 mg admin both at 2230, with + effect. Abdomen soft; + BS. Patient asking for snacks often (popsicles, saltines, and gingerale). LBM- 07/25/22. Patient ambulating independently; voiding in the bathroom; steady gait noted. Call delatorre and personal items in reach. Plan: waiting for inpatient psych bed. For full assessment details, see CIS. Will continue monitoring the patient. . Discharge Information Case Management Discharge Plan : Case Management Discharge Plan Data 07/26/2022 19:33 EST Discharge Level of Care at Discharge Not Done: Assessed, No Action Needed (Not Done) Rehabilitation Discharge : Rehab Discharge Index 07/23/2022 8:31 EST Comments on treatment indicated Pt is appropriate for DC HWS and with RW. Walker: distance >50 Full chart review completed Yes Hospital course Hospital course Other findings Pt demo I bed mob and transfers, required S for amb up to 60', and S for 5 stairs with B UE support. PT reports feelig shaky in her hands and feet but did not affect mobility. Pt used the RW which is rec for DC. * Miriam Yee MD: PERFORM Event Display: Progress Note Hospital Authored Date: [id number] Patient: ??YUDI CALDERON ? Age:??41 Years?Sex:??Female?:??1980?? Subjective pt seen and examined at bedside ??no overnight event had bm yesterday tearful, overwhelmed about her living situation, health condition Review of Systems Constitutional:??No ??fever, chills Cardiovascular:?? no chest pain, chest pressure or chest discomfort. No palpitations or pedal edema. Respiratory:??No shortness of breath, cough or sputum production. Gastrointestinal: ongoing pain All other systems were reviewed negative except mentioned above. Allergies Allergies ?(Active and Proposed Allergies Only) Egg Allergy? (Severity: Unknown severity, Onset: Unknown) ? Objective Measurements?? Height: 157 cm (07/25/22) Weight: 71.1 kg (07/20/22) Weight: 71.1 kg (07/20/22) Dry Weight: 71.1 kg (07/20/22) Body Mass Index:??28.84 kg/m2??High (07/20/22) ? Physical Exam ??GENERAL: In no apparent distress HEENT: Head normocephalic, PERRL,Moist mucous membrane. Neck supple CARDIOVASCULAR: Normal rate and rhythm, no murmurs, no rubs, no gallops RESPIRATORY: Lungs clear to auscultation, no wheezes , no crackles ABDOMEN/GI: mildly distended, soft, mild diffuse tenderness normal bowel sounds EXTREMITIES: No pitting edema BRUSHER TENDER: Alert and oriented x 3.Non focal neuro exam. PSYCHIATRIC: Calm and co-operative SKIN: Warm and dry. ? _ 72 Hour Antibiotic History Active Antibiotics Calendar Day Last Administered First Administered Rifaximin??550 mg, By Mouth, 2 times a day ?6 07/25/2022 09:29 07/20/2022 23:28 ? Results Recent Labs MISC. CHEMISTRY Ammonia, Venous 69 ??mole/L (High)?? 07/24/2022 01:05 ? Assessment/Plan ?? 41-year-old female with history of polysubstance abuse, cirrhosis status post TIPS procedure, hepatic encephalopathy, kidney stone presents with abdominal pain. ? Abdominal pain?? Hyperammonemia history of alcoholic liver cirrhosis ??Constipation ?? CT abdomen and RUQ ultrasound with biliary dilatation, LFTs elevated ??Follow-up with GI and surgery recommendations RUQ US with Doppler ordered- Extrahepatic biliary ductal dilatation, TIPS???patent?? status post GI consult???no choledocholithiasis??per GI, no need of MRCP, biliary dilatation likelyfrom methadone LFT baseline???history of liver cirrhosis No ascites by CT abdomen and??sonogram Continue spironolactone, Lasix, rifaximin, lactulose ??DC morphine ??started on PO oxycodone ??Aggressive bowel regimen ? Methadone use (F11.90): That she takes 30 mg daily last dose was this morning 07/20 Dose confirmed by RN with [facility] Continue methadone ??Check QTC ?? 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 History of kidney stone ??Followed by urology outpatient, left ureteral??stent recently placed ??Flank pain may be due to ureteral spasm???added Pyridium ??Follow-up with urology outpatient for stent removal ??As needed cyclobenzaprine ? VTE Prophylaxis: Lovenox Code Status: Full ? Discharge Planning:??Medically stable??to be discharged?voluntary psych admission psych wont be able to clear her for discharge as she is suicidal , so will need to stay IP while waiting for psych bed ?? Note * Do BULL WHEEL WORKERHelen T: PERFORM, MODIFY, MODIFY Event Display: Discharge/Transfer Note Hospital Authored Date: Patient: ??CALDERON, CRYSTAL ? Age:??41 Years?Sex:??Female?:??1980?? Patient Information Discharge Location: B Primary Care Physician: Not on Staff, PCP Admit Date/Time: 07/20/22 11:20 Discharge Disposition Discharge Disposition: ??transfer to in psych Discharge Diagnosis Abdominal pain (R10.9) Choledocholithiasis (K80.50) History of cirrhosis (Z87.19) Methadone use (F11.90) ?? _ Discharge Medications Cyclobenzaprine (cyclobenzaprine 10 mg oral tablet)?10?Milligram?1?tablet?By Mouth?Daily at bedtime?as needed?Spasm Furosemide (furosemide 40 mg oral tablet)?40?Milligram?1?tablet?By Mouth?Daily Nicol Gabapentin (gabapentin 800 mg oral tablet)?1?tab(s)?800?Milligram?By Mouth?3 times a day?for pain Lactulose (lactulose 10 gm/15 ml oral syrup)?30?Milliliter?20?gram?By Mouth?3 times a day?for 30?Days Methadone (methadone 10 mg oral tablet)?2.5?tab(s)?25?Milligram?By Mouth?Daily Rifaximin (rifAXIMin 550 mg oral tablet)?1?tab(s)?550?Milligram?By Mouth?2 times a day?for 30?Days Spironolactone (spironolactone 100 mg oral tablet)?100?Milligram?1?tablet?By Mouth?Daily?for 30?Days ? Quality Measures Tobacco Use Treatment:? Medications Started none Medications Discontinued none Doses Changed none Allergies Allergies ?(Active and Proposed Allergies Only) Egg Allergy? (Severity: Unknown severity, Onset: Unknown) ? Objective Assessment and Plan 41-year-old female with history of polysubstance abuse, cirrhosis status post TIPS procedure, hepatic encephalopathy, kidney stone presents with abdominal pain. ? Abdominal pain?? Hyperammonemia history of alcoholic liver cirrhosis ??Constipation CT abdomen and RUQ ultrasound with biliary dilatation, LFTs elevated ??Follow-up with GI and surgery recommendations RUQ US with Doppler ordered- Extrahepatic biliary ductal dilatation, TIPS???patent?? status post GI consult???no choledocholithiasis??per GI, no need of MRCP, biliary dilatation likelyfrom methadone LFT baseline???history of liver cirrhosis No ascites by CT abdomen and??sonogram Continue spironolactone, Lasix, rifaximin, lactulose ??DC morphine ??started on PO oxycodone ??Aggressive bowel regimen ?? Methadone use (F11.90): That she takes 30 mg daily last dose was this morning 07/20 Dose confirmed by RN with [facility] on [facility] Continue methadone ?? Suicidal ideation ??Psych recommends voluntary psych admission ??medically clear for psych admission , psych notified ?? History of kidney stone ??Followed by urology outpatient, left ureteral??stent recently placed ??Flank pain may be due to ureteral spasm???added Pyridium ??Follow-up with urology outpatient for stent removal ??As needed cyclobenzaprine ?? . Physical Exam Constitutional: Alert, in no acute distress. Head: Normocephalic. Respiratory:??Clear to auscultation. No wheezing or rhonchi.??No use of accessory muscles.?? Cardiovascular:??S1 S2 regular. No murmurs, rubs or gallops. Gastrointestinal:??Abdomen soft, non-tender, non-distended. Normal bowel sounds.?? Extremities: No lower extremity pitting edema.?? Neurologic:?? No focal neurological deficits. Moves all extremities spontaneously.?? Skin:??No rash.?? Psychiatric: Normal mood and affect. Consultants psych GI Pending Results COVID-19 (2019 Novel Coronavirus) PCR ordered on 07/26/2022 Post Discharge Care Diet: Regular Diet Activity: Ambulate with assistance ??3 times a day ??unless otherwise specified Code Status: ?? Full Resuscitation Prognosis: Good Discharge ?[facility] bed available, ??07/26/22 15:39:00 EST Discharge Prescriptions ?None, ??07/26/22 11:18:00 EST Home Health Face to Face ^HomeHealthFTF Results Discharge Labs BLOOD COUNT & DIFF WBC 3.2 k/mm3 (Low)?? 07/22/2022 01:57 RBC 2.77 m/mm3 (Low)?? 07/22/2022 01:57 Hgb 8.0 Gm/dL (Low)?? 07/22/2022 01:57 Hct 24.5 % (Low)?? 07/22/2022 01:57 MCV 88.4 femtoliters ()?? 07/22/2022 01:57 MCH 28.9 pg ()?? 07/22/2022 01:57 MCHC 32.7 g/dL (Low)?? 07/22/2022 01:57 Platelet Count 101 k/mm3 (Low)?? 07/22/2022 01:57 RDW-SD 57.1 femtoliters (High)?? 07/22/2022 01:57 MPV 11.2 femtoliters ()?? 07/22/2022 01:57 Nucleated RBC (Automated) 0.0 #/100 WBC'S ()?? 07/22/2022 01:57 Abs. NRBC 0.0 k/mm3 ()?? 07/22/2022 01:57 Abs. Neut 1.7 k/mm3 ()?? 07/22/2022 01:57 Abs. Lymph 1.0 k/mm3 ()?? 07/22/2022 01:57 Abs. [place] 0.4 k/mm3 ()?? 07/22/2022 01:57 Abs. Eo 0.1 k/mm3 ()?? 07/22/2022 01:57 Abs. Baso 0.0 k/mm3 ()?? 07/22/2022 01:57 Neut % 53.6 % ()?? 07/22/2022 01:57 Lymph % 32.4 % ()?? 07/22/2022 01:57 [place] % 11.5 % (High)?? 07/22/2022 01:57 Eos % 2.5 % ()?? 07/22/2022 01:57 Baso % 0.0 % ()?? 07/22/2022 01:57 Imm Gran 0.0 % ()?? 07/22/2022 01:57 Abs. Imm Gran 0.0 k/mm3 ()?? 07/22/2022 01:57 ?? CHEM GENERAL Sodium 140 mmol/L ()?? 07/23/2022 11:03 Potassium 3.8 mmol/L ()?? 07/23/2022 11:03 Chloride 104 mmol/L ()?? 07/23/2022 11:03 Bicarbonate Level 31 mmol/L (High)?? 07/23/2022 11:03 Anion Gap 5 ()?? 07/23/2022 11:03 Glucose Level 126 mg/dL (High)?? 07/22/2022 01:57 BUN 7 mg/dL ()?? 07/22/2022 01:57 Creatinine-Blood 0.6 mg/dL ()?? 07/22/2022 01:57 Estimated GFR Creatinine 115 ML/MIN/1.73 M2 ()?? 07/22/2022 01:57 Calcium 7.9 mg/dL (Low)?? 07/22/2022 01:57 Phosphorus 2.6 mg/dL ()?? 07/23/2022 11:03 Magnesium 1.9 mg/dL ()?? 07/23/2022 11:03 Protein, Total 5.7 Gm/dL (Low)?? 07/21/2022 01:26 Albumin 2.5 Gm/dL (Low)?? 07/21/2022 01:26 AG Ratio 0.8 ()?? 07/20/2022 13:26 Alkaline Phosphatase 137 units/L (High)?? 07/21/2022 01:26 Lipase 27 units/L ()?? 07/20/2022 13:26 AST (SGOT) 306 units/L (High)?? 07/21/2022 01:26 ALT (SGPT) 78 units/L (High)?? 07/21/2022 01:26 Bilirubin, Total 1.8 mg/dL (High)?? 07/21/2022 01:26 Bilirubin, Direct 0.8 mg/dL (High)?? 07/21/2022 01:26 Bilirubin, Indirect 1.0 mg/dL (High)?? 07/21/2022 01:26 Lactate 3.5 mmol/L (High)?? 07/20/2022 13:28 ? ENDOCRINE/TUMOR MARKER Cortisol Level 1.3 ??g/dL ()?? 07/22/2022 12:06 ? HEME OTHER Hold Blue Top SPECIMEN DISCARDED AFTER 4 HOURS. ()?? 07/20/2022 13:26 ? MISC. CHEMISTRY Ammonia, Venous 69 ??mole/L (High)?? 07/24/2022 01:05 ? TOXICOLOGY/TDM Barbiturate Screen, Urine NONE DETECTED ()?? 07/26/2022 17:50 Cannabinoid Screen, Urine POSITIVE (Abnormal)?? 07/26/2022 17:50 Cocaine Metabolite Screen, Urine NONE DETECTED ()?? 07/26/2022 17:50 Benzodiazepine Screen, Urine NONE DETECTED ()?? 07/26/2022 17:50 Amphetamine Screen, Urine NONE DETECTED ()?? 07/26/2022 17:50 Opiate Screen, Urine NONE DETECTED ()?? 07/26/2022 17:50 ?? VIROLOGY COVID-19 PCR Specimen Source NASAL ()?? 07/25/2022 11:30 COVID-19 PCR Result NEGATIVE ()?? 07/25/2022 11:30 COVID-19 POC Result NEGATIVE ()?? 07/20/2022 11:57 ? 35??minutes spent on discharge * Do BULL WHEEL WORKERHelen T: PERFORM, MODIFY, MODIFY, MODIFY Event Display: Discharge/Transfer Note Hospital Authored Date: Patient: ??CALDERON, CRYSTAL ? Age:??41 Years?Sex:??Female?:??1980?? Patient Information Discharge Location: D3B Primary Care Physician: Not on Staff, PCP Admit Date/Time: 07/20/22 11:20 Discharge Disposition Discharge Disposition: ??transfer to in psych Discharge Diagnosis Abdominal pain (R10.9) Choledocholithiasis (K80.50) History of cirrhosis (Z87.19) Methadone use (F11.90) ?? _ Discharge Medications Cyclobenzaprine (cyclobenzaprine 10 mg oral tablet)?10?Milligram?1?tablet?By Mouth?Daily at bedtime?as needed?Spasm Furosemide (furosemide 40 mg oral tablet)?40?Milligram?1?tablet?By Mouth?Daily Nicol Gabapentin (gabapentin 800 mg oral tablet)?1?tab(s)?800?Milligram?By Mouth?3 times a day?for pain Lactulose (lactulose 10 gm/15 ml oral syrup)?30?Milliliter?20?gram?By Mouth?3 times a day?for 30?Days Methadone (methadone 10 mg oral tablet)?2.5?tab(s)?25?Milligram?By Mouth?Daily Rifaximin (rifAXIMin 550 mg oral tablet)?1?tab(s)?550?Milligram?By Mouth?2 times a day?for 30?Days Spironolactone (spironolactone 100 mg oral tablet)?100?Milligram?1?tablet?By Mouth?Daily?for 30?Days ? Quality Measures Tobacco Use Treatment:? Medications Started none Medications Discontinued none Doses Changed none Allergies Allergies ?(Active and Proposed Allergies Only) Egg Allergy? (Severity: Unknown severity, Onset: Unknown) ? Objective Assessment and Plan 41-year-old female with history of polysubstance abuse, cirrhosis status post TIPS procedure, hepatic encephalopathy, kidney stone presents with abdominal pain. ? Abdominal pain?? Hyperammonemia history of alcoholic liver cirrhosis ??Constipation CT abdomen and RUQ ultrasound with biliary dilatation, LFTs elevated ??Follow-up with GI and surgery recommendations RUQ US with Doppler ordered- Extrahepatic biliary ductal dilatation, TIPS???patent?? status post GI consult???no choledocholithiasis??per GI, no need of MRCP, biliary dilatation likelyfrom methadone LFT baseline???history of liver cirrhosis No ascites by CT abdomen and??sonogram Continue spironolactone, Lasix, rifaximin, lactulose ??DC morphine ??started on PO oxycodone ??Aggressive bowel regimen ?? Methadone use (F11.90): That she takes 30 mg daily last dose was this morning 07/20 Dose confirmed by RN with [facility] on [facility] Continue methadone ?? Suicidal ideation ??Psych recommends voluntary psych admission ??medically clear for psych admission , psych notified ?? History of kidney stone ??Followed by urology outpatient, left ureteral??stent recently placed ??Flank pain may be due to ureteral spasm???added Pyridium ??Follow-up with urology outpatient for stent removal ??As needed cyclobenzaprine ? . Physical Exam Constitutional: Alert, in no acute distress. Head: Normocephalic. Respiratory:??Clear to auscultation. No wheezing or rhonchi.??No use of accessory muscles.?? Cardiovascular:??S1 S2 regular. No murmurs, rubs or gallops. Gastrointestinal:??Abdomen soft, non-tender, non-distended. Normal bowel sounds.?? Extremities: No lower extremity pitting edema.?? Neurologic:?? No focal neurological deficits. Moves all extremities spontaneously.?? Skin:??No rash.?? Psychiatric: Normal mood and affect. Consultants psych GI Pending Results COVID-19 (2019 Novel Coronavirus) PCR ordered on 07/26/2022 Urinalysis w/hold for Urine Culture ordered on 07/20/2022 Post Discharge Care Diet: Regular Diet Activity: Ambulate with assistance ??3 times a day ??unless otherwise specified Code Status: ?? Full Resuscitation Prognosis: Good Discharge ?inpt psych, ??07/26/22 11:18:00 EST Discharge Prescriptions ?None, ??07/26/22 11:18:00 EST Home Health Face to Face ^HomeHealthFTF Results Discharge Labs BLOOD COUNT & DIFF WBC 3.2 k/mm3 (Low)?? 07/22/2022 01:57 RBC 2.77 m/mm3 (Low)?? 07/22/2022 01:57 Hgb 8.0 Gm/dL (Low)?? 07/22/2022 01:57 Hct 24.5 % (Low)?? 07/22/2022 01:57 MCV 88.4 femtoliters ()?? 07/22/2022 01:57 MCH 28.9 pg ()?? 07/22/2022 01:57 MCHC 32.7 g/dL (Low)?? 07/22/2022 01:57 Platelet Count 101 k/mm3 (Low)?? 07/22/2022 01:57 RDW-SD 57.1 femtoliters (High)?? 07/22/2022 01:57 MPV 11.2 femtoliters ()?? 07/22/2022 01:57 Nucleated RBC (Automated) 0.0 #/100 WBC'S ()?? 07/22/2022 01:57 Abs. NRBC 0.0 k/mm3 ()?? 07/22/2022 01:57 Abs. Neut 1.7 k/mm3 ()?? 07/22/2022 01:57 Abs. Lymph 1.0 k/mm3 ()?? 07/22/2022 01:57 Abs. [place] 0.4 k/mm3 ()?? 07/22/2022 01:57 Abs. Eo 0.1 k/mm3 ()?? 07/22/2022 01:57 Abs. Baso 0.0 k/mm3 ()?? 07/22/2022 01:57 Neut % 53.6 % ()?? 07/22/2022 01:57 Lymph % 32.4 % ()?? 07/22/2022 01:57 [place] % 11.5 % (High)?? 07/22/2022 01:57 Eos % 2.5 % ()?? 07/22/2022 01:57 Baso % 0.0 % ()?? 07/22/2022 01:57 Imm Gran 0.0 % ()?? 07/22/2022 01:57 Abs. Imm Gran 0.0 k/mm3 ()?? 07/22/2022 01:57 ?? CHEM GENERAL Sodium 140 mmol/L ()?? 07/23/2022 11:03 Potassium 3.8 mmol/L ()?? 07/23/2022 11:03 Chloride 104 mmol/L ()?? 07/23/2022 11:03 Bicarbonate Level 31 mmol/L (High)?? 07/23/2022 11:03 Anion Gap 5 ()?? 07/23/2022 11:03 Glucose Level 126 mg/dL (High)?? 07/22/2022 01:57 BUN 7 mg/dL ()?? 07/22/2022 01:57 Creatinine-Blood 0.6 mg/dL ()?? 07/22/2022 01:57 Estimated GFR Creatinine 115 ML/MIN/1.73 M2 ()?? 07/22/2022 01:57 Calcium 7.9 mg/dL (Low)?? 07/22/2022 01:57 Phosphorus 2.6 mg/dL ()?? 07/23/2022 11:03 Magnesium 1.9 mg/dL ()?? 07/23/2022 11:03 Protein, Total 5.7 Gm/dL (Low)?? 07/21/2022 01:26 Albumin 2.5 Gm/dL (Low)?? 07/21/2022 01:26 AG Ratio 0.8 ()?? 07/20/2022 13:26 Alkaline Phosphatase 137 units/L (High)?? 07/21/2022 01:26 Lipase 27 units/L ()?? 07/20/2022 13:26 AST (SGOT) 306 units/L (High)?? 07/21/2022 01:26 ALT (SGPT) 78 units/L (High)?? 07/21/2022 01:26 Bilirubin, Total 1.8 mg/dL (High)?? 07/21/2022 01:26 Bilirubin, Direct 0.8 mg/dL (High)?? 07/21/2022 01:26 Bilirubin, Indirect 1.0 mg/dL (High)?? 07/21/2022 01:26 Lactate 3.5 mmol/L (High)?? 07/20/2022 13:28 ? ENDOCRINE/TUMOR MARKER Cortisol Level 1.3 ??g/dL ()?? 07/22/2022 12:06 ? HEME OTHER Hold Blue Top SPECIMEN DISCARDED AFTER 4 HOURS. ()?? 07/20/2022 13:26 ? MISC. CHEMISTRY Ammonia, Venous 69 ??mole/L (High)?? 07/24/2022 01:05 ? VIROLOGY COVID-19 PCR Specimen Source NASAL ()?? 07/25/2022 11:30 COVID-19 PCR Result NEGATIVE ()?? 07/25/2022 11:30 COVID-19 POC Result NEGATIVE ()?? 07/20/2022 11:57 ? 35??minutes spent on discharge * Brianda Mckeon RN: PERFORM Event Display: Patient Education/Instruction Authored Date: [id number] Inpatient Adult Discharge Instructions [address] [address] Name: YUDI CALDERON : 1980 Visit: 07/20/2022 11:20:00 Current Date: 07/26/2022 11:24 Account: [id number] Inpatient Adult Discharge Instructions We would like [...] and their families. Surveys are administered by [employer] ?? If further treatment with your primary care physician or another doctor is recommended, it is important for you to keep the appointment. Call your primary care physician or return to the Emergency Department immediately if your condition worsens, fails to improve, or new symptoms develop. If you need to find a doctor, you can call [facility] for a referral at [phone] or toll free at [phone] or log in to [email or web address].. ?? You can view and manage your care through the patient portal or by using a health care barb of your choosing. [employer] is a website that allows you to securely view your medical information including your hospital discharge summary, office visit summaries, medications and follow-up visits. You can also request appointments, renew medications, and request access to your medical information using a health care barb of your choosing, or just ask a question. You can enroll at [email or web address] or register during your next office visit. You have been discharged from [facility], Patient Care Unit: D3B. If you have any questions regarding these instructions after you leave, please call us and we will be happy to assist you. [facility] Your Care Team Attending Physician Joselito FERNANDEZ, Miriam Consulting Providers Hiro FERNANDEZ, Faith; Bea FERNANDEZ, Dannie; Gabe FERNANDEZ, Catrachita Discharging Providers Do BULL WHEEL WORKER, Vi T Reason for Admission 1 week of hematuria and abdominal pain LUQ. Haven't been taking medications. Symptoms have gotten worse. endorses dizziness and SOB as well. O2 for comfort Your Diagnosis Choledocholithiasis Abdominal pain History of cirrhosis Methadone use Tests Performed Below is a partial list of the tests performed during your hospitalization. You may have had other tests and procedures not included in this list. Please discuss all test results with your provider. Ammonia Venous BUN Calcium Level CBC CBC w/ Differential Comprehensive Metabolic Panel Cortisol Level COVID-19 RNA POC Creatinine Electrolytes Glucose Level HEPATIC FUNCTION PANEL Hold Blue Top Tube Lactic Acid Level Lipase Lytes Magnesium Level Phosphorus Level Urinalysis w/hold for Urine Culture?-- Results Pending -- Cervical Spine CT W/O Contrast CT Abdomen and Pelvis W/O Contrast CT Head/Brain W/O Contrast KUB US RUQ ? You will be contacted within 72 hours with your results. Primary Care Provider Not on Staff, PCP Advance Directive Health Care Proxy on File Yes - Health Care Proxy No qualifying data available. Discharge Vitals Temperature: 97.9 DegF Height: 157 cm Pulse Rate: 84 bpm Weight: 71.1 kg Respiratory Rate: 18 br/min Weight: 71.1 kg Systolic Blood Pressure: 109 mm Hg Body Mass Index:??28.84 kg/m2??High Diastolic Blood Pressure: 60 mm Hg Body surface area: 1.76 Oxygen Saturation: 100 % ?? Studies Pending All tests and labs ordered during this hospital stay have been completed unless listed below. Please discuss all pending results with your provider listed above in these instructions. ?? COVID-19 (2019 Novel Coronavirus) PCR Urinalysis w/hold for Urine Culture What to do next Instructions From Your Doctor Discharge Orders Diet:??Regular Diet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
--- OUTSIDE RECORDS SUMMARY | 2023-11-20 18:01 | XMS_ITS | Continuity of Care Document ---
Author Organization [facility] ter Address [address] [place] [id number]- Care Team Providers Care Vehicle Operator Technician Name Role Phone Not on Staff, PCP Primary Care Physician Unavail able Encounter [facility] Date(s): 09/28/22 - 09/29/[address] [address]- Discharge Disposition: Transfer to [facility] Facility Attending Physician: Margarita Mon MD Admitting Physician: Margarita Mon MD Referring Physician: Not on Staff, Referring [...] Mouth, 2 times a day, PRN Other, # 28 tablet, 1 Refills, Maintenance, 09/05/22 8:59:00 EST, Tablet, [facility], Partial fill upon patient request if the prescription is for a schedule II opioid drug., 157, cm, 09/05... Start Date: 09/05/22 Stop Date: 10/03/22 Status: Ordered docusate-senna 50 mg-8.6 mg oral capsule 2 capsule, By Mouth, 2 times a day, # 120 capsule, 0 Refills, Maintenance, 09/05/22 8:59:00 EST, Capsule, [facility], Partial fill upon patient request if the prescription is for a schedule II opioid drug., 2 capsule By Mouth 2 times a d... Start Date: 09/05/22 Status: Ordered furosemide 40 mg oral tablet 40 mg, 1, tablet, By Mouth, Daily in AM, # 30 tablet, Refills 0, Tot. Refills 0, Maintenance, 09/05/22 8:59:00 EST, Route to Pharmacy Electronically, [facility], Partial fill upon patient request if the prescription is for a schedule II... Start Date: 09/05/22 Status: Ordered gabapentin 100 mg oral capsule 100 mg, Capsule, By Mouth, 09/29/22 9:00:00 EDT Start Date: 09/29/22 Stop Date: 09/29/22 Status: Completed gabapentin 100 mg oral capsule 100 mg, 1, capsule, By Mouth, 2 times a day, # 60 capsule, Refills 0, Tot. Refills 0, Maintenance, 09/05/22 8:59:00 EST, Route to Pharmacy Electronically, [facility], Partial fill upon patient request if the prescription is for a schedul... Start Date: 09/05/22 Status: Ordered lactulose 10 gm/15 ml oral syrup 45 mL = 30 Gm, By Mouth, 4 times a day, # 5,400 mL, 0 Refills, Maintenance, 09/05/22 8:58:00 EST, Syrup, [facility], Partial fill upon patient request if the prescription is for a schedule II opioid drug., 45 mL By Mouth 4 times a day, 1... Start Date: 09/05/22 Status: Ordered melatonin 3 mg oral tablet 1 tablet = 3 mg, By Mouth, Daily at bedtime, # 30 tablet, 0 Refills, Maintenance, 09/05/22 8:59:00 EST, Tablet, [facility], Partial fill upon patient [...] opioid drug. Start Date: 08/01/22 Status: Ordered Methadone Tablet 30 mg, Tablet, By Mouth, 09/29/22 9:00:00 EDT Start Date: 09/29/22 Stop Date: 09/29/22 Status: Completed rifAXIMin 550 mg oral tablet 1 tablet = 550 mg, By Mouth, 2 times a day, # 60 tablet, 0 Refills, Maintenance, 09/05/22 8:33:00 EST, Tablet, [facility], Partial fill upon patient request if the prescription is for aschedule II opioid drug., 157, cm, 09/05/22 8:06:00... Start Date: 09/05/22 Status: Ordered sertraline 50 mg oral tablet 1 tablet = 50 mg, By Mouth, Daily at bedtime, # 30 tablet, 0 Refills, Maintenance, 09/05/22 8:58:00EST, Tablet, [facility], Partial fill upon patient request if the prescription is fora schedule II opioid drug., 157, cm, 09/05/22 8:06:... Start Date: 09/05/22 Status: Ordered simethicone 80 mg oral tablet, chewable 80 mg, 1, tablet, Chew, 3 times a day, # 90 tablet, Refills 0, Tot. Refills 0, Maintenance, 09/05/22 8:59:00 EST, Route to Pharmacy Electronically, [facility], Partial fill upon patientrequest if the prescription is for a schedule II op... Start Date: 09/05/22 Status: Ordered spironolactone 100 mg oral tablet 100 mg, 1, tablet, By Mouth, Daily, # 30 tablet, Refills 0, Tot. Refills 0, Maintenance, 09/05/22 8:59:00 EST, Route to Pharmacy Electronically, [facility], Partial fill upon patient request if the prescription is for a schedule II opioi... Start Date: 09/05/22 Status: Ordered traZODone 50 mg oral tablet 50 mg, 1, tablet, By Mouth, Daily at bedtime, # 30 tablet, Refills 0, Tot. Refills 0, Maintenance, 09/05/22 8:59:00 EST, Route to Pharmacy Electronically, [facility], Partial fill upon patient [...] Exam Date Time Procedure Performing Provider Status 09/29/22 3:25 AM US RUQ Margarita Mcclendon; Auth (V erified) Notes: (US RUQ) Reason For Exam: Abdominal Pain;Other: RESULT: US RUQ US RUQ Hx of Present Illness: patient endorses nausea vomiting since this morning. endorses blood in vomit. Also endorses epigastric discomfort from frequent vomiting. hx cirrhosis.; Reason: Other:; Abdominal Pain; Clinical Question(s): Cholecystitis COMPARISON: Ultrasound and CT abdomen 07/20/2022. FINDINGS: Limited study due to bowel gas. Liver: Coarse hepatic echotexture and echogenic parenchyma. Ill-defined 2.5 cm isoechoic lesion is seen in the right hepatic lobe (image 2600). Nodular hepatic contour. Main portal vein patent with normal hepatopetal direction of flow. TIPS shunt was not visualized. Trace perihepatic free fluid. Gallbladder: No gallstones. Normal wall thickness. No pericholecystic fluid. Negative Ty sign. Biliary Tree: No intrahepatic or extrahepatic bile duct dilation is identified. Common duct measures: 0.9 cm. Pancreas: No abnormality in the visualized portions of the pancreas. Mild prominence of the duct inthe pancreatic body measuring up to 0.4 cm. Right kidney: 11.4 cm in length. Normal parenchymal echotexture and thickness. No hydronephrosis, stone or mass. Right upper pole 0.6 cm simple cyst. IMPRESSION: Cirrhotic morphology. Trace perihepatic free fluid. TIPS shunt was not visualized. No evidence of cholecystitis. 2.5 cm right hepatic lobe ill-defined isoechoic lesion may represent a regenerative nodule, underlying mass cannot be excluded. There is also mild prominence of the pancreatic duct. Nonemergent MRI abdomen/hepatic protocol may be considered if necessary. I have personally reviewed the images and I agree with this report. WSN: [id number] Ordering Physician: Janett Okeefe Dictated By: Jesus Sawyer MD Dictated Date/Time: 09/29/22 6:29 am Reviewed By: Carmina Ellis MD Signed By: Carmina Ellis MD Signed Date/Time: 09/29/22 6:34 am Transcribed By: TATE Transcribed Date/Time: 09/29/22 3:48 am Vital Signs Most recent to oldest [Reference Range]: 1 2 3 Oxygen Saturation [94-100 %] 97 % (09/29/22 2:51 PM) 96 % (09/29/22 7:17 AM) 95 % (09/29/22 6:27 AM) Pulse Rate [55-90 bpm] 88 bpm (09/29/22 2:51 PM) 82 bpm (09/29/22 7:17 AM) 81 bpm (09/29/22 6:27 AM) Blood Pressure [90-138/55-84 mm Hg] 124/64mm Hg (09/29/22 2:51 PM) 109/63mm Hg (09/29/22 7:17 AM) 102/57mm Hg (09/29/22 6:27 AM) Respiratory Rate [16-30 br/min] 18 br/min (09/29/22 2:51 PM) 18 br/min (09/29/22 9:12 AM) 18 br/min (09/29/22 9:12 AM) Temperature [96.8-100.4 DegF] 98.3 DegF (09/29/22 2:51 PM) 97.2 DegF (09/29/22 7:17 AM) 97.1 DegF (09/29/22 6:27 AM) Mode of Delivery (Oxygen) Room air (09/29/22 2:51 PM) Room air (09/29/22 7:17 AM) Room air (09/29/22 6:27 AM) Blood pressure sites Arm, right (09/29/22 2:51 PM) Arm, right (09/29/22 7:17 AM) Arm, right (09/29/22 6:27 AM) Temperature Route Oral (09/29/22 2:51 PM) Oral (09/29/22 7:17 AM) Oral (09/29/22 6:27 AM) Social History Social History Type Response Tobacco Use: 4 or less cigar ettes(less than 1/4 pack)/day in last 30 days. Sex US Abdomen RUQ * [facility] , CIS S: TRANSCRIBE Caleb FERNANDEZ , Carmina A: VERIFY Digna FERNANDEZ, Ahmed: SIGN Event Display: Result: Authored Date: [id number] US RUQ Hx of Present Illness: patient endorses nausea vomiting since this morning. endorses blood in vomit. Also endorses epigastric discomfort from frequent vomiting. hx cirrhosis.; Reason: Other:; Abdominal Pain; Clinical Question(s): Cholecystitis COMPARISON: Ultrasound and CT abdomen 07/20/2022. FINDINGS: Limited study due to bowel gas. Liver: Coarse hepatic echotexture and echogenic parenchyma. Ill-defined 2.5 cm isoechoic lesion is seen in the right hepatic lobe (image 2600). Nodular hepatic contour. Main portal vein patent with normal hepatopetal direction of flow. TIPS shunt was not visualized. Trace perihepatic free fluid. Gallbladder: No gallstones. Normal wall thickness. No pericholecystic fluid. Negative Ty sign. Biliary Tree: No intrahepatic or extrahepatic bile duct dilation is identified. Common duct measures: 0.9 cm. Pancreas: No abnormality in the visualized portions of the pancreas. Mild prominence of the duct inthe pancreatic body measuring up to 0.4 cm. Right kidney: 11.4 cm in length. Normal parenchymal echotexture and thickness. No hydronephrosis, stone or mass. Right upper pole 0.6 cm simple cyst. IMPRESSION: Cirrhotic morphology. Trace perihepatic free fluid. TIPS shunt was not visualized. No evidence of cholecystitis. 2.5 cm right hepatic lobe ill-defined isoechoic lesion may represent a regenerative nodule, underlying mass cannot be excluded. There is also mild prominence of the pancreatic duct. Nonemergent MRI abdomen/hepatic protocol may be considered if necessary. I have personally reviewed the images and I agree with this report. WSN: [id number] Ordering Physician: Janett Okeefe Dictated By: Jesus Sawyer MD Dictated Date/Time: 09/29/22 6:29 am Reviewed By: Carmina Ellis MD Signed By: Carmina Ellis MD Signed Date/Time: 09/29/22 6:34 am Transcribed By: TATE Transcribed Date/Time: 09/29/22 3:48 am Patient Care team information Care Team Personnel Name: Bj Rivera MD Position: [facility] GI MD Member Role: Lifetime Consulting Physician Address: Address: [address] [place] [address], [address] [facility] [address] Name: Aimee Pereira RN Position: [facility] RN Member Role: Primary Care Nurse Name: Mariano Perez Position: [facility] RN Supv Member Role: Primary Care Nurse Name: Jeanna Barclay RN Position: [facility] RN Member Role: Primary Care Nurse Name: Elba Castillo RN Position: [facility] RN Member Role: Primary Care Nurse Name: Isabella Merlos RN Position: [facility] RN Member Role: Primary Care Nurse Name: Luke Russell RN Position: S RN Member Role: Primary Care Nurse Name: Virgil Campos RN Position: [facility] RN Member Role: Primary Care Nurse Name: Ishaan Burton Jr, RN Position: [facility] RN Member Role: Primary Care Nurse Name: Faby Rodriguez Position: [facility] RN Member Role: Primary Care Nurse Name: Leslie Valle RN Position: [facility] RN Member Role: Primary Care Nurse Name: Clare Romano RN Position: [facility] RN Member Role: Primary Care Nurse Name: Cliff Mo RN Position: [facility] RN Member Role: Primary Care Nurse Name: Goldy Lamar Position: S RN Member Role: Primary Care Nurse Name: Katina Kelly RN Position: [facility] RN Member Role: Primary Care Nurse Name: Nesha Browne Position: S RN Member Role: Primary Care Nurse Name: Jonh Melgar MD Position: [facility] Physician -Physician Practices Member Role: Lifetime Consulting Physician Address: Address: [address] [place] [id number]- [place] Name: Anibal Peace RN Position: S RN Member Role: Primary Care Nurse Name: Colleen Leal RN Position: S RN Member Role: Primary Care Nurse Name: Davonte Rosario RN Position: S RN Member Role: Primary Care Nurse Name: Kristal Hay RN Position: S RN Member Role: Primary Care Nurse Name: Not on Staff, PCP Position: [facility] Physician (General Medicine) Member Role: PCP Name: Tracy Chaparro RN Position: [facility] RN Member Role: Primary Care Nurse Name: Kemal Pulido MD Position: [facility] Renal MD Member Role: Lifetime Consulting Physician Address: Address: [address] [place] [address] [facility] [place] [address]- Name: Mariam Melendrez RN Position: [facility] RN Member Role: Primary Care Nurse Name: Leticia Lobato RN Position: [facility] RN Member Role: Primary Care Nurse Name: Emma Martin RN Position: [facility] RN Member Role: Primary Care Nurse Name: Kyle Lui RN Position: [facility] RN Member Role: Primary Care Nurse Name: Janett Mendoza RN Position: [facility] RN Member Role: Primary Care Nurse Name: Jessie Ann RN Position: [facility] RN Supv Member Role: Primary Care Nurse Name: Purvi Rivera RN Position: [facility] RN Member Role: Primary Care Nurse Name: Naina Peng RN Position: [facility] RN Member Role: Primary Care Nurse Name: Dimas Vazquez RN Position: [facility] RN Member Role: Primary Care Nurse Name: Tyson Blum MD Position: [facility] Renal MD Member Role: Lifetime Consulting Physician Address: Address: [address] [place] [address] [facility] [place] [address]- Name: Jesise Tovar RN Position: [facility] RN Member Role: Primary Care Nurse Name: Emma Barkley RN Position: [facility] RN Member Role: Primary Care Nurse Name: Emma Hardy RN Position: S RN Member Role: Primary Care Nurse Name: Blanca Rai RN Position: [facility] RN Member Role: Primary Care Nurse Name: Janell Gomez RN Position: [facility] RN Member Role: Primary Care Nurse Name: Orlando Conn RN Position: [facility] RN Member Role: Primary Care Nurse Name: *[facility], ED Attending Position: [facility] ED Attendings Patient Name: Yahaira Grullon RN Position: [facility] ED RN W/OE and Tasks Member Role: Patient Care Provider Name: Kalyani Cowan Position: [facility] ED TA [facility] Name: Margarita Mon MD Position: [facility] Resident Member Role: ED Attending Physician Address: Address: [address] [place] [address] [place] [address]- [place] Care Team Related Persons Name: LUIS F ROBERTS Address: [place] [address] Name: DEV MCDONNELL
--- OUTSIDE RECORDS SUMMARY | 2023-11-20 18:01 | XMS_ITS | Continuity of Care Document ---
Author Organization [facility] ter Address [address] [place] [address]- Care Team Providers Care Payroll Assistant Name Role Phone Rupa FERNANDEZ, Theodora Melendez Primary Care Physician Encounter [facility] ACCT R [id number] Date(s): 11/07/21 - 11/12/[address] [address] Discharge Disposition: A-D/C Home Attending Physician: Nirmal Ospina MD Admitting Physician: Louis Chatman MD Referring Physician: Not on Staff, Referring [...] 04/20/22 15:20:00 EDT, 11/03/21 15:20:00 EDT, Tablet, [facility], Partial fill upon patient request if the prescription is for a schedule II opioid drug., 158,... Start Date: 11/03/21 Stop Date: 04/20/22 Status: Ordered gabapentin 300 mg oral capsule 600 mg, Capsule, By Mouth, 05/08/22 9:00:00 EDT Start Date: 11/12/21 Stop Date: 11/12/21 Status: Completed gabapentin 300 mg oral capsule 600 mg, 2, capsule, By Mouth, 2 times a day, # 28 capsule, Refills 0, Tot. Refills 0, Maintenance, 06/08/21 8:48:00 EST, Route to Pharmacy Electronically, [id number], Partial fill upon patient request if the prescription is for a schedule II o... Start Date: 06/08/21 Stop Date: 06/15/21 Status: Ordered lactulose 10 gm/15 ml oral syrup 30 mL = 20 Gm, By Mouth, 4 times a day, # 840 mL, 0 Refills, Maintenance, 06/08/21 8:45:00 EST, Syrup, [id number], Partial fill upon patient request if the prescription is for a schedule II opioid drug., 30 mL By Mouth 4 times a day,x7 days, 1... Start Date: 06/08/21 Stop Date: 06/15/21 Status: Ordered Lasix 40 mg oral tablet 40 mg, 1, tablet, By Mouth, Daily, # 30 tablet, Refills 3, Tot. Refills 3, Maintenance, 10/26/21 16:17:00 EDT, Route to Pharmacy Electronically, [id number], Partial fill upon patient request if the prescription is for a schedule II opioid drug... Start Date: 10/26/21 Status: Ordered methadone 10 mg/5 mL oral solution 11 mL = 22 mg, By Mouth, Daily, 0 Refills, Maintenance, 11/12/21 10:14:00 EDT, Solution, Partial fill upon patient request if the prescription is for a schedule II opioid drug. Start Date: 11/12/21 Status: Ordered Methadone Liquid 22 mg, Solution, By Mouth, 11/12/21 9:00:00 EDT Start Date: 11/12/21 Stop Date: 11/12/21 Status: Completed spironolactone 100 mg oral tablet [...] Panic disorder(Confirmed) Active Polysubstance dependence(Confirmed) Active Results Orders for Microbiology Reports Name Date Blood Culture 11/07/21 Blood Culture #2 11/07/21 Microbiology Reports TEST:Blood Culture, Second Order STATUS:Auth (Verified) BODY SITE: SOURCE:Blood COLLECTED DATE/TIME:11/07/21 8:19 PM Blood Culture, Second Order SPECIMEN DESCRIPTION : BLOOD NO SITE SPECIAL REQUESTS : NONE CULTURE : NO GROWTH 5 DAYS. REPORT STATUS : FINAL 11/12/2021 TEST:Blood Culture STATUS:Auth (Verified) BODY SITE: SOURCE:Blood COLLECTED DATE/TIME:11/07/21 7:38 PM Blood Culture SPECIMEN DESCRIPTION : BLOOD LAC SPECIAL REQUESTS : NONE CULTURE : NO GROWTH 5 DAYS. REPORT STATUS : FINAL 11/12/2021 Radiology Reports * Exam Date Time Procedure Performing Provider Status 11/07/21 7:37 PM Chest Portable Nael Cortez; Auth (Verified) Notes: (Chest Portable) Reason For Exam: Shortness of Breath RESULT: Chest Portable Chest Portable REASON: Shortness of Breath; Clinical Question(s): CHF / CHF COMPARISON: 05/27/2021 FINDINGS: LINES AND TUBES: None. LUNGS AND PLEURA: Low lung volumes with hazy ground glass opacity in both lungs. No pleural effusion. No pneumothorax. HEART, MEDIASTINUM AND HERMINIA: Heart is normal in size. Normal mediastinal and hilar contour. BONES AND SOFT TISSUES: No acute abnormality. Old left rib fractures. Status post TIPS. IMPRESSION: Hazy ground glass opacity in both lungs could be due to pulmonary edema or atypical/viral infection. WSN: [id number] Ordering Physician: Vika Walton Dictated By: Francisco Vo MD Dictated Date/Time: 11/07/21 7:41 pm Reviewed By: Francisco Vo MD Signed By: Francisco Vo MD Signed Date/Time: 11/07/21 7:41 pm Transcribed By: TATE Transcribed Date/Time: 11/07/21 7:40 pm Vital Signs Most recent to oldest [Reference Range]: 1 2 3 Height 158 cm (11/12/21 6:17 AM) 158 cm (11/11/21 8:16 PM) 158 cm (11/11/21 1:47 PM) Weight 73 kg (11/08/21 3:00 PM) 68 kg (11/08/21 9:08 AM) 68 kg (11/08/21 7:19 AM) Oxygen Saturation [94-100 %] 99 % (11/12/21 6:17 AM) 98 % (11/11/21 8:16 PM) 99 % (11/11/21 1:47 PM) Pulse Rate [55-90 bpm] 100 bpm *H* (11/12/21 6:17 AM) 97 bpm *H* (11/11/21 8:16 PM) 115 bpm *H* (11/11/21 1:47 PM) Body Mass Index [18.5-24.99] 29.24 *H* (11/08/21 3:00 PM) 27.24 *H* (11/08/21 9:08 AM) 27.24 *H* (11/08/21 7:19 AM) Blood Pressure [90-138/55-84 mm Hg] 117/85mm Hg (11/12/21 6:17 AM) 124/65mm Hg (11/11/21 8:16 PM) 134/82mm Hg (11/11/21 1:47 PM) Respiratory Rate [16-30 br/min] 16 br/min (11/12/21 9:47 AM) 16 br/min (11/12/21 9:46 AM) 16 br/min (11/12/21 8:00 AM) Temperature [96.8-100.4 DegF] 98.0 DegF (11/12/21 6:17 AM) 98.4 DegF (11/11/21 8:16 PM) 98.1 DegF (11/11/21 1:47 PM) Mode of Delivery (Oxygen) Room air (11/12/21 6:17 AM) Room air (11/11/21 8:16 PM) Room air (11/11/21 1:47 PM) Blood pressure sites Arm, right (11/12/21 6:17 AM) Arm, right (11/11/21 8:16 PM) Arm, right (11/11/21 1:47 PM) Temperature Route Oral (11/12/21 6:17 AM) Oral (11/11/21 8:16 PM) Oral (11/11/21 1:47 PM) Dry Weight 73 kg (11/08/21 3:00 PM) 68 kg (11/08/21 9:08 AM) 68 kg (11/08/21 7:19 AM) Social History Social History Type Response Tobacco Use: 4 or less cigar ettes(less than 1/4 pack)/day in last 30 days. Sex
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
--- OUTSIDE RECORDS SUMMARY | 2023-11-20 18:01 | XMS_ITS | Continuity of Care Document ---
Author Organization [facility] Address [address] [place] [address]- Care Team Providers Care Breast Buffer Name Role Phone Rupa FERNANDEZ, Theodora Melendez Primary Care Physician [phone] Encounter [facility] Date(s): 05/02/21 - 08/30/21 [facility] [address] [place] [address]- Attending Physician: Not on Staff, Attending MD Referring Physician: Not on Staff, Referring [...] 06/08/21 8:45:00 EST, Route to Pharmacy Electronically, [facility]/pharmacy #[id number], Partial fill upon patient request ifthe prescription is for a schedule II opioid drug.,... Start Date: 06/08/21 Stop Date: 06/15/21 Status: Ordered furosemide 40 mg oral tablet 40 mg, 1, tablet, By Mouth, 2 times a day, # 14 tablet, Refills 0, Tot. Refills 0, Maintenance, 06/08/21 8:47:00 EST, Route to Pharmacy Electronically, [facility]/pharmacy #[id number], Partial fill upon patient request if the prescription is for a schedule II opio... Start Date: 06/08/21 Stop Date: 06/15/21 Status: Ordered gabapentin 300 mg oral capsule 300 mg, 1, capsule, By Mouth, 3 times a day, # 21 capsule, Refills 0, Tot. Refills 0, Maintenance, 06/08/21 8:48:00 EST, Route to Pharmacy Electronically, [facility]/pharmacy #[id number], Partial fill upon patient request if the prescription is for a schedule II o... Start Date: 06/08/21 Stop Date: 06/15/21 Status: Ordered lactulose 10 gm/15 ml oral syrup 30 mL = 20 Gm, By Mouth, 4 times a day, # 840 mL, 0 Refills, Maintenance, 06/08/21 8:45:00 EST, Syrup, [facility]/pharmacy #[id number], Partial fill upon patient request [...] 06/08/21 8:48:00 EST, Route to Pharmacy Electronically, [facility]/pharmacy #[id number], Partial fill upon patient request [...]
--- OUTSIDE RECORDS SUMMARY | 2023-11-20 18:01 | XMS_ITS | Continuity of Care Document ---
Author Organization [facility] ter Address [address] [place] [id number] Care Team Providers Care Care Management Specialist Name Role Phone Not on Staff, PCP Primary Care Physician Unavail able [place] [facility] [place]): [place] - 07/03/[address] [id number]- Encounter Diagnosis Hepatic encephalopathy(Final) - 07/01/22 Discharge Disposition: A-D/C Home Attending Physician: Levi Borges MD Admitting Physician: Maikel Can MD Referring Physician: Not on Staff, Referring [...] opioid drug. Start Date: 05/12/22 Status: Ordered folic acid 1 mg oral tablet 1 mg, 1, tablet, By Mouth, Daily, # 30 tablet, Refills 1, Tot. Refills 1, Maintenance, 07/03/22 9:12:00 EST, Route to Pharmacy Electronically, [facility], Partial fill upon patient request if the prescription is for a schedule II opioid... Start Date: 07/03/22 Stop Date: 09/01/22 Status: Ordered furosemide 40 mg oral tablet 40 mg, 1, tablet, By Mouth, Daily in AM, # 30 tablet, Refills 1, Tot. Refills 1, Maintenance, 07/03/22 9:12:00 EST, Route to Pharmacy Electronically, [facility], Partial fill upon patient request [...] 09/01/22 9:12:00 EST, 07/03/22 9:12:00 EST, Syrup, [facility], Partial fill upon patient request if theprescription is for a schedule II opioid drug., 30... Start Date: 07/03/22 Stop Date: 09/01/22 Status: Ordered lactulose 10 gm/15 ml oral syrup 30 mL = 20 Gm, By Mouth, 4 times a day, # 1,680 mL, 3 Refills, Maintenance, 06/28/22 13:05:00 EST, Syrup, [id number], Partial fill upon patient request if the prescription is for a schedule II opioid drug., 30 mL By Mouth 4 times a da... Start Date: 06/28/22 Stop Date: 08/23/22 Status: Ordered Lasix 20 mg oral tablet 20 mg, 1, tablet, By Mouth, Daily, # 30 tablet, Refills 0, Tot. Refills 0, Maintenance, 05/23/22 13:04:00 EST, Route to Pharmacy Electronically, [facility], Partial fill upon patient request [...] drug. Start Date: 07/03/22 Status: Ordered methadone 5 mg oral tablet 25 mg, Tablet, By Mouth, Once, NICHOL, 07/03/22 9:03:00 EST, Stop date 07/03/22 9:03:00 EST Start Date: 07/03/22 Stop Date: 07/03/22 Status: Completed rifAXIMin 550 mg oral tablet 1 tablet = 550 mg, By Mouth, 2 times a day, # 60 tablet, 1 Refills, Maintenance, 07/03/22 9:12:00 EST, Tablet, [facility], Partial fill upon patient request if the prescription is for aschedule II opioid drug. Start Date: 07/03/22 Stop Date: 09/01/22 Status: Ordered spironolactone 100 mg oral tablet 100 mg, 1, tablet, By Mouth, Daily, # 30 tablet, Refills 0, Tot. Refills 0, Maintenance, 05/22/22 13:39:00 EST, Route to Pharmacy Electronically, [facility], Partial fill upon patient request if the prescription is for a schedule II opio... Start Date: 05/22/22 Stop Date: 06/21/22 Status: Ordered spironolactone 25 mg oral tablet 25 mg, 1, tablet, By Mouth, Daily in AM, # 30 tablet, Refills 1, Tot. Refills 1, Maintenance, 07/03/22 9:12:00 EST, Route to Pharmacy Electronically, [facility], Partial fill upon patient request if the prescription is for a schedule II... Start Date: 07/03/22 Stop Date: 09/01/22 Status: Ordered thiamine 100 mg oral tablet 100 mg, 1, tablet, By Mouth, Daily, for 30 days, # 30 tablet, Refills 1, Tot. Refills 1, Acute 09/01/22 9:13:00 EST, 07/03/22 9:13:00 EST, Route to Pharmacy Electronically, [facility], Partial fill upon patient request if the prescriptio... Start Date: 07/03/22 Stop Date: 09/01/22 Status: Ordered Zofran 4 mg oral tablet 1 tablet = 4 mg, By Mouth, Every 8 hours, PRN as needed for nausea/vomiting, # 40 tablet, 2 Refills, Maintenance, 02/02/22 10:18:00 EDT, Tablet, [id number], Partial fill upon patient request if [...] Confirmed Active Polysubstance dependence Confirmed Active Results Orders for Microbiology Reports Name Date Blood Culture 07/01/22 Blood Culture #2 07/01/22 Microbiology Reports TEST:Blood Culture, Second Order STATUS:Unauthenticated BODY SITE: SOURCE:Blood COLLECTED DATE/TIME:07/01/22 3:55 PM Blood Culture, Second Order SPECIMEN DESCRIPTION : BLOOD LT HAND SPECIAL REQUESTS : NONE CULTURE : NO GROWTH AFTER 48 HOURS REPORT STATUS : PRELIMINARY REPORT TEST:Blood Culture STATUS:Unauthenticated BODY SITE: SOURCE:Blood COLLECTED DATE/TIME:07/01/22 3:47 PM Blood Culture SPECIMEN DESCRIPTION : BLOOD SPECIAL REQUESTS : NONE CULTURE : NO GROWTH AFTER 48 HOURS REPORT STATUS : PRELIMINARY REPORT Radiology Reports * Exam Date Time Procedure Performing Provider Status 07/01/22 4:[address] Abd/Pelvis W/ IV Contrast Only Makenna Luz; Auth (Verified) Notes: (CT Abd/Pelvis W/ IV Contrast Only) Reason For Exam: LLQ abdominal pain;Other: RESULT: CT Abd/Pelvis W/ IV Contrast Only CT Abd/Pelvis W/ IV Contrast Only Hx of Present Illness: pt coming from friends house, pt noncompliant with lactulose. Per friend pt had similar issue last year. Friend called EMS for pt being altered. Pt minimally interacting with EMS; Reason: Other:; Abdominal tenderness.; Clinical Question(s): Abscess; Order Comment: TECHNIQUE: Spiral CT through the abdomen and pelvis with IV contrast formatted in 3 planes. 100 cc of Omnipaque 300 was administered intravenously. This study was performed without oral contrast. Weight-based protocol using automatic tube modulation was used to optimize exposure parameters. CTDIvol Body: 17.60 mGy, DLP Body: 1078 mGy*cm. COMPARISON: None. FINDINGS: Employment Services Director View Findings, Lines and Tubes: None. Visualized Chest: Lung bases are clear. No pleural effusion. The heart is normal in size. No pericardial effusion. Diaphragm: Normal. Liver: Nodular contour, suggestive of cirrhotic changes. There is a TIPS in place with patent lumen. Gallbladder: No CT evidence of gallbladder pathology. Bile ducts: No biliary ductal dilation. Spleen: Splenomegaly measuring 15.2 cm craniocaudally. Pancreas: Normal. Adrenal glands: Normal. Kidneys and ureters: There is an appropriately positioned double-J stent in the left ureter. Mild left hydronephrosis. Enhancement in the left renal parenchyma is slightly heterogeneous. No hydronephrosis, stones, or suspicious masses. Small hypodensities that are too small to characterize are noted, requiring no dedicated follow up. Bladder: Normal. Reproductive organs: Ovaries are enlarged and contain multiple cystic lesions. The right ovary measures 4.6 x 4 x 4.6 cm and the left ovary measures 4.4 x 3.4 x 3.2 cm. Uterine fundus is nodular, likely due to fibroids. Stomach, small bowel, and large bowel: No abnormal wall thickening or distention. Large amount of stool retention throughout the colon without evidence of stercoral colitis.. Appendix: Normal. Peritoneum and retroperitoneum: No ascites or pneumoperitoneum. No omental or mesenteric lesions. Lymph nodes: No enlarged lymph nodes. Blood vessels: Normal. No aneurysm. No evidence of venous thrombosis. Abdominal and pelvic wall: Unremarkable. Bones: No acute abnormality. Severe degenerative disc disease at L5-S1 with near complete loss of disc space and disc vacuum phenomenon. IMPRESSION: 1. Appropriately positioned double-J stent in the left ureter with mild left hydronephrosis. Enhancement in the left renal parenchyma is heterogeneous. Please correlate with urinalysis findings to exclude pyelonephritis. 2. Enlarged ovaries containing multiple cystic lesions. Follow-up with nonemergent ultrasound should be considered. 3. Cirrhotic liver with TIPS in place and splenomegaly. 4. Constipation without evidence of bowel obstruction or stercoral colitis. WSN: [id number] Ordering Physician: Byron Shin Dictated By: Adalberto Parks MD Dictated Date/Time: 07/01/22 5:20 pm Reviewed By: Adalberto Parks MD Signed By: Adalberto Parks MD Signed Date/Time: 07/01/22 5:20 pm Transcribed By: TATE Transcribed Date/Time: 07/01/22 5:04 pm * Exam Date Time Procedure Performing Provider Status 07/01/22 4:[address] Head/Brain W/O Contrast Makenna Ruth i; [place] (Verified) Notes: (CT Head/Brain W/O Contrast) Reason For Exam: AMS;Other: RESULT: CT Head/Brain W/O Contrast CT Head/Brain W/O Contrast INDICATION: Hx of Present Illness: pt coming from friends house, pt noncompliant with lactulose. Per friend pt had similiar issue last year. Friend called EMS for pt being altered. Pt minimally interacting with EMS; Reason: Other:; AMS; Clinical Question(s): Hematoma TECHNIQUE: Noncontrast head CT using axial technique and reconstructed in axial and coronal planes.Iterative reconstruction techniques are used to optimize dose and image quality. CTDIvol Head: 46.80 mGy, DLP Head: 774 mGy*cm. COMPARISON: None. FINDINGS: Employment Services Director view findings, lines and tubes: None. BRAIN AND EXTRA-AXIAL SPACES: No parenchymal hemorrhage, midline shift, or mass effect. Crowe-white matter differentiation is wellpreserved. No acute infarct. Ventricles, sulci, and basilar cisterns are normal. No white matter lesions. No subarachnoid hemorrhage. No subdural or epidural collection. CALVARIUM, SKULL BASE, AND SOFT TISSUES: No fractures or suspicious bony lesions. The paranasal sinuses and mastoid air cells are clear. Visualized orbits and globes are intact. The extracranial soft tissues are unremarkable. IMPRESSION: No acute intracranial pathology. WSN: [id number] Ordering Physician: Byron Shin Dictated By: Abdirahman Cleaning MD Dictated Date/Time: 07/01/22 5:05 pm Reviewed By: Abdirahman Cleaning MD Signed By: Abdirahman Cleaning MD Signed Date/Time: 07/01/22 5:05 pm Transcribed By: TATE Transcribed Date/Time: 07/01/22 4:59 pm * Exam Date Time Procedure Performing Provider Status 07/01/22 4:24 PM Chest Portable Erin Jose; Auth (Verified) Notes: (Chest Portable) Reason For Exam: Shortness of Breath RESULT: Chest Portable Chest Portable Hx of Present Illness: pt coming from friends house, pt noncompliant with lactulose. Per friend pt had similar issue last year. Friend called EMS for pt being altered. Pt minimally interacting with EMS; Reason: Shortness of Breath; Clinical Question(s): CHF; Order Comment: 1610 came to do exam pt.,was agitated and was not going to be cooperative. vdw COMPARISON: None available. FINDINGS: LINES AND TUBES: None. LUNGS AND PLEURA: Clear lungs. Pulmonary vascular congestion without overt interstitial edema. No pleural effusion. No pneumothorax. HEART, MEDIASTINUM AND HERMINIA: Mild prominence of the cardiac silhouette. Normal mediastinal and hilar contour. BONES AND SOFT TISSUES: No acute abnormality. Chronic appearing rib deformities in the left lateral fourth and fifth ribs. There is a vascular stent in the right upper quadrant (? TIPS). IMPRESSION: Pulmonary vascular congestion without interstitial edema. WSN: [id number] Ordering Physician: Byron Shin Dictated By: Adalberto Parks MD Dictated Date/Time: 07/01/22 4:41 pm Reviewed By: Adalberto Parks MD Signed By: Adalberto Parks MD Signed Date/Time: 07/01/22 4:41 pm Transcribed By: TATE Transcribed Date/Time: 07/01/22 4:39 pm Vital Signs Most recent to oldest [Reference Range]: 1 2 3 Oxygen Saturation [94-100 %] 100 % (07/03/22 11:06 AM) 98 % (07/03/22 7:51 AM) 100 % (07/03/22 6:27 AM) Pulse Rate [55-90 bpm] 64 bpm (07/03/22 11:06 AM) 60 bpm (07/03/22 7:51 AM) 63 bpm (07/03/22 6:27 AM) Blood Pressure [90-138/55-84 mm Hg] 132/80mm Hg (07/03/22 11:06 AM) 138/81mm Hg (07/03/22 7:51 AM) 137/86mm Hg (07/03/22 6:27 AM) Respiratory Rate [16-30 br/min] 18 br/min (07/03/22 11:06 AM) 18 br/min (07/03/22 9:51 AM) 18 br/min (07/03/22 7:51 AM) Temperature [96.8-100.4 DegF] 98.4 DegF (07/03/22 7:51 AM) 98.2 DegF (07/03/22 6:27 AM) 98.8 DegF (07/03/22 12:27 AM) Liters per Minute 2 L/min (07/02/22 11:25 AM) 2 L/min (07/02/22 9:33 AM) 2 L/min (07/02/22 8:13 AM) Mode of Delivery (Oxygen) Room air (07/03/22 11:06 AM) Room air (07/03/22 7:51 AM) Room air (07/03/22 6:27 AM) Blood pressure sites Arm, left (07/03/22 11:06 AM) Arm, left (07/03/22 7:51 AM) Arm, left (07/03/22 6:27 AM) Temperature Route Oral (07/03/22 7:51 AM) Oral (07/03/22 6:27 AM) Oral (07/03/22 12:27 AM) Social History Social History Type Response Tobacco Use: 4 or less cigar ettes(less than 1/4 pack)/day in last 30 days. Sex Admission evaluation note * Andrew FERNANDEZ, Madai Bai: PERFORM, MODIFY, MODIFY, MODIFY Event Display: Admission Note Authored Date: Patient: ??BRAVO, LD CALHOUN ? Age:??89 Years?Sex:??Female?:???? Chief Complaint/Reason for Consultation pt coming from friends house, pt noncompliant with lactulose. Per friend pt had similiar issue lastyear. Friend called EMS for pt being altered. Pt minimally interacting with EMS History of Present Illness 41-year-old female with PMH of ? Liver cirrhosis,? polysubstance use disorder was brought to the EDby EMS due to altered mental status. ?? Patient's medical chart reviewed, seen and examined at bedside.?? History limited due to patient completely altered and only responds by opening eyes.?? As per chart review patient's friend called 911 and told that she has been not acting normal for the last 24 hours.?? Patient may have a history of liver cirrhosis and may be on lactulose not ever of any of the other past medical history and medications that she takes at home. ?? Initially in the ED patient was completely altered confused, agitated.?? She remains afebrile, heart rate ranging from 52-61, RR 16, BP soft 104/60, saturation 100%?? on room air.?? VBG with 7.49/36 point / 7.8.?? Found to have leukopenia 2.8, normocytic anemia 9.3, thrombocytopenia 65, electrolytes normal, BUN/creatinine 11/0.7, blood glucose 99, high-sensitivity troponin 11, albumin 3,alk phos 168, AST/ALT 45/29, T bili 1.5, direct bili 0.8, lactate of 2, significantly elevated ammonia 322.?? C-19/flu/RSV negative, UA negative chest x-ray with pulmonary vascular congestion and no interstitial edema.?? Patient received droperidol 2.5 mg IV push and Versed and 10 mg of IV olanzapin e.?? Patient will be admitted to inpatient medicine service for altered mental status?? due to hepatic encephalopathy. Review of Systems Not able to obtain due to patient's altered mental status Objective ? Vital Signs?? Temperature: 98.2 DegF (07/01/22 15:31:00) Temperature Route: Oral (07/01/22 15:31:00) Pulse Rate: 61 bpm (07/01/22 19:37:00) Respiratory Rate: 16 br/min (07/01/22 19:37:00) Systolic Blood Pressure: 104 mm Hg (07/01/22 19:37:00) Diastolic Blood Pressure: 60 mm Hg (07/01/22 19:37:00) Blood pressure sites: Arm, right (07/01/22 19:37:00) Mean Arterial Pressure: 75 mm Hg (07/01/22 18:53:00) Pulse Pressure: 44 mm Hg (07/01/22 19:37:00) Oxygen Saturation: 100 % (07/01/22 19:37:00) Mode of Delivery (Oxygen): Room air (07/01/22 19:37:00) Early Warning Score: 6 (07/01/22 19:40:10) ? Pain Scores?? No qualifying data available. ? Intake/Output? No Data Available ?? Precautions Seizure Precautions ? Physical Exam Exam limited due to patient's altered mental status Gen-altered, responds??by opening her eyes??and dozes back HEENT- Normocephalic, Atraumatic,??no pallor, icterus Neck-supple, no JVD, Heart-S1S2(+),??regular, no murmurs lungs- Clear, b/l air entry, no wheezing Abdomen-soft,,nondistended,??bowel sounds present in 4q, Extremities-pulses palpable??2+.?? No calf tenderness. Neurological-altered Psychiatric-patient???s mood not able to assess ? (07/01/2022 16:24 EST Chest Portable) IMPRESSION: ?? Pulmonary vascular congestion without interstitial edema. ?? (07/01/2022 16:[address] Head/Brain W/O Contrast) IMPRESSION: ?? No acute intracranial pathology. ? (07/01/2022 16:[address] Abd/Pelvis W/ IV Contrast Only) IMPRESSION:? 1. ??Appropriately positioned double-J stent in the left ureter with mild left hydronephrosis. Enhancement in the left renal parenchyma is heterogeneous. Please correlate with urinalysis findings to exclude pyelonephritis. 2. ??Enlarged ovaries containing multiple cystic lesions. Follow-up with nonemergent ultrasound should be considered. 3. ??Cirrhotic liver with TIPS in place and splenomegaly. 4. ??Constipation without evidence of bowel obstruction or stercoral colitis. ?? Assessment/Plan 41-year-old female with PMH of ? Liver cirrhosis,? polysubstance use disorder was brought to the EDby EMS due to altered mental status.Initially in the ED patient was completely altered confused, agitated.?? She remains afebrile, heart rate ranging from 52-61, RR 16, BP soft 104/60, saturation 100%?? on room air.?? VBG with 7.49/36 point / 7.8.?? Found to have leukopenia 2.8, normocytic anemia 9.3, thrombocytopenia 65, electrolytes normal, BUN/creatinine 11/0.7, blood glucose 99, high-sensitivity troponin 11, albumin 3, alk phos 168, AST/ALT 45/29, T bili 1.5, direct bili 0.8, lactate of 2, significantly elevated ammonia 322.?? C-19/flu/RSV negative, UA negative chest x-ray with pulmonary vascular congestion and no interstitial edema.?? Patient received droperidol 2.5 mg IV push and Versed and 10 mg of IV olanzapine.?? Patient will be admitted to inpatient medicine service for altered mental status?? due to hepatic encephalopathy. ?? Hepatic encephalopathy?? History of??liver cirrhosis??s/p TIPS Pancytopenia Vitals as per unit standards Telemetry monitoring Neurochecks every 4 hours Seizure precautions N.p.o.??while altered Hypoglycemia emergency measures S/p lactulose??enema overnight?? Patient's mental status?? improved after lactulose, now more awake Discontinued??lactulose enema and??started with lactulose??p.o.??30 mg 3 times daily??and titrated to 3??bowel movements per day Starting with rifaximin 550 mg twice daily Once more awake and alert resume with p.o. medications ? Once patient mental status improved back to baseline please??obtain??complete medical history and medications and??adjust accordingly ?? Code???presumed full for now,??please confirm after patient??awake and alert Diet???n.p.o. for now DVT prophylaxis???pneumatic compression boots ?? Patient seen and examined on??07/01/2022 Histories Allergies Allergies ?(Active and Proposed Allergies Only) NKA? (Severity: Unknown severity, Onset: Unknown) ? Past Medical History/Problem List No problems documented. ? Past Surgical History No surgery history documented. ? Social History No social history documented. ? Family History No family history recorded. ? Medications Home Medications No medications documented.? Inpatient Medications Medications (14) Active SCHEDULED: (2) Lactulose 10 Gm / 15 mL Syrup (237 mL) (Lactulose Rectal Enema) ??160 Gm 240 mL, Rectally, Every 4 hours NaCl 0.9% Flush 3ml (NaCL 0.9% Flush) ??3 mL, IV Push, Every 8 hours CONTINUOUS: (0) PRN: (12) Acetaminophen 325 mg Tablet (Acetaminophen Tablet) ??650 mg, By Mouth, Every 4 hours Dextromethorphan-Guaifenesin 20 mg-200 mg/10 mL Liqu UD (Robitussin DM Liquid) ??10 mL, By Mouth, Every 4 hours Dextrose Inj Syringe (Dextrose 50% Inj Syringe (25Gm)) ??12.5 Gm, IV Push Slowly, Every 20 minutes Dextrose Inj Syringe (Dextrose 50% Inj Syringe (25Gm)) ??25 Gm, IV Push Slowly, Every 15 minutes Glucagon 1 mg Inj (Glucagon Inj) ??1 mg, Intramuscular, Once Glucose 40% Gel (15 Gm) (Glucose Gel) ??15 Gm, By Mouth, Every 20 minutes Glucose 40% Gel (15 Gm) (Glucose Gel) ??30 Gm, By Mouth, Every 20 minutes Melatonin 3 mg Tablet (Melatonin Tablet) ??3 mg, By Mouth, Daily at bedtime NaCl 0.9% Flush 3ml (NaCL 0.9% Flush) ??3 mL, IV Push, Every 8 hours Polyethylene Glycol 17 Gm Powder (MiraLax Powder) ??17 Gm 1 pack/packet, By Mouth, Daily Senna 8.6 mg / Docusate 50 mg tablet (Docusate/Senna Tablet) ??1 tablet, By Mouth, 2 times a day Simethicone 80 mg Chewable Tablet (Simethicone Tablet) ??80 mg, Chew, 3 times a day ? Results Recent Labs BLOOD COUNT & DIFF WBC 2.8 k/mm3 (Low)?? 07/01/2022 15:46 RBC 3.26 m/mm3 (Low)?? 07/01/2022 15:46 Hgb 9.3 Gm/dL (Low)?? 07/01/2022 15:46 Hct 29.1 % (Low)?? 07/01/2022 15:46 MCV 89.3 femtoliters ()?? 07/01/2022 15:46 MCH 28.5 pg ()?? 07/01/2022 15:46 MCHC 32.0 g/dL (Low)?? 07/01/2022 15:46 Platelet Count 65 k/mm3 (Low)?? 07/01/2022 15:46 RDW-SD 50.9 femtoliters (High)?? 07/01/2022 15:46 MPV NOT MEASURED femtoliters ()?? 07/01/2022 15:46 Nucleated RBC (Automated) 0.0 #/100 WBC'S ()?? 07/01/2022 15:46 Abs. NRBC 0.0 k/mm3 ()?? 07/01/2022 15:46 Abs. Neut 1.4 k/mm3 ()?? 07/01/2022 15:46 Abs. Lymph 1.1 k/mm3 ()?? 07/01/2022 15:46 Abs. [place] 0.3 k/mm3 (Low)?? 07/01/2022 15:46 Abs. Eo 0.0 k/mm3 ()?? 07/01/2022 15:46 Abs. Baso 0.0 k/mm3 ()?? 07/01/2022 15:46 Neut % 50.2 % ()?? 07/01/2022 15:46 Lymph % 38.0 % ()?? 07/01/2022 15:46 [place] % 10.0 % ()?? 07/01/2022 15:46 Eos % 1.4 % ()?? 07/01/2022 15:46 Baso % 0.4 % ()?? 07/01/2022 15:46 Hemoglobin (POC) POC Cartridge 9.2 Gm/dL (Low)?? 07/01/2022 16:04 Hematocrit (POC) POC Cartridge 27 % (Low)?? 07/01/2022 16:04 Imm Gran 0.0 % ()?? 07/01/2022 15:46 Abs. Imm Gran 0.0 k/mm3 ()?? 07/01/2022 15:46 ?? BLOOD GAS Lactate, (POC) POC Cartridge 1.8 mmol/L ()?? 07/01/2022 16:00 pH Venous (POC) POC Cartridge 7.49 (High)?? 07/01/2022 16:04 pCO2 Venous (POC) POC Cartridge 36.6 mm Hg (Low)?? 07/01/2022 16:04 pO2 Venous (POC) POC Cartridge 40 mm Hg ()?? 07/01/2022 16:04 Est Bicarbonate (POC) POC Cartridge 27.8 mmol/L ()?? 07/01/2022 16:04 % O2 Sat Venous (POC) POC Cartridge 79 ()?? 07/01/2022 16:04 Base Excess (POC) POC Cartridge 4 ()?? 07/01/2022 16:04 Specimen Type - Blood Gas VENOUS ()?? 07/01/2022 16:04 ?? CARDIAC High Sensitivity Troponin (HSTnT) 11 ng/L ()?? 07/01/2022 15:36 ?? CHEM GENERAL Sodium 145 mmol/L ()?? 07/01/2022 15:46 Potassium 4.6 mmol/L ()?? 07/01/2022 15:46 Chloride 112 mmol/L (High)?? 07/01/2022 15:46 Bicarbonate Level 28 mmol/L ()?? 07/01/2022 15:46 Anion Gap 5 ()?? 07/01/2022 15:46 Sodium (POC) POC Cartridge 146 mmol/L (High)?? 07/01/2022 16:04 Potassium (POC) POC Cartridge 4.5 mmol/L ()?? 07/01/2022 16:04 Chloride (POC) POC Cartridge 107 mmol/L ()?? 07/01/2022 15:48 Glucose Level 99 mg/dL ()?? 07/01/2022 15:46 Glucose (POC) POC Cartridge 92 ()?? 07/01/2022 16:04 Glucose, POC 92 mg/dL ()?? 07/01/2022 15:28 Beta Hydroxybutyrate <0.05 mmol/L ()?? 07/01/2022 15:46 BUN 11 mg/dL ()?? 07/01/2022 15:46 BUN (POC) POC Cartridge 11 mg/dL ()?? 07/01/2022 15:48 Creatinine-Blood 0.7 mg/dL ()?? 07/01/2022 15:46 Creatinine (POC) POC Cartridge 0.6 mg/dL ()?? 07/01/2022 15:48 Estimated GFR Creatinine 68 ML/MIN/1.73 M2 ()?? 07/01/2022 15:46 Calcium 8.7 mg/dL ()?? 07/01/2022 15:46 Calcium, Ionized pH Corrected 1.31 mmol/L ()?? 07/01/2022 15:46 Ionized Calcium (POC) POC Cartridge 1.21 mmol/L ()?? 07/01/2022 16:04 Magnesium 2.0 mg/dL ()?? 07/01/2022 15:46 Protein, Total 6.2 Gm/dL ()?? 07/01/2022 15:46 Albumin 3.0 Gm/dL (Low)?? 07/01/2022 15:46 Alkaline Phosphatase 168 units/L (High)?? 07/01/2022 15:46 AST (SGOT) 45 units/L (High)?? 07/01/2022 15:46 ALT (SGPT) 29 units/L ()?? 07/01/2022 15:46 Bilirubin, Total 1.5 mg/dL (High)?? 07/01/2022 15:46 Bilirubin, Direct 0.8 mg/dL (High)?? 07/01/2022 15:46 Bilirubin, Indirect 0.7 mg/dL ()?? 07/01/2022 15:46 Lactate 2.0 mmol/L ()?? 07/01/2022 15:36 ?? ENDOCRINE/TUMOR MARKER TSH 0.75 uIU/mL ()?? 07/01/2022 15:46 ?? HEME OTHER Hold Blue Top SPECIMEN DISCARDED AFTER 4 HOURS. ()?? 07/01/2022 15:53 ?? MISC. CHEMISTRY Ammonia, Venous 322 ??mole/L (High)?? 07/01/2022 15:55 ?? TOXICOLOGY/TDM Salicylate Level <0.3 mg/dL (Low)?? 07/01/2022 15:46 Acetaminophen Level <5 mg/L (Low)?? 07/01/2022 15:46 ?? UA/URINALYSIS Appear/Color, Urine LIGHT YELLOW ()?? 07/01/2022 16:16 Specific [place], Urine 1.004 ()?? 07/01/2022 16:16 pH, Urine 8.0 ()?? 07/01/2022 16:16 Albumin, Urine NEGATIVE ()?? 07/01/2022 16:16 Glucose, Urine NEGATIVE ()?? 07/01/2022 16:16 Ketones, Urine NEGATIVE ()?? 07/01/2022 16:16 Bilirubin, Urine NEGATIVE ()?? 07/01/2022 16:16 Hemoglobin, Urine 3+ (Abnormal)?? 07/01/2022 16:16 Nitrite, Urine NEGATIVE ()?? 07/01/2022 16:16 Leukocyte, Urine 1+ (Abnormal)?? 07/01/2022 16:16 Urobilinogen NORMAL mg/dL ()?? 07/01/2022 16:16 WBC's, Urine 4 /HPF ()?? 07/01/2022 16:16 RBC's, Urine 3 /HPF ()?? 07/01/2022 16:16 Bacteria SLIGHT HPF (Abnormal)?? 07/01/2022 16:16 Squamous Epith <1 /HPF ()?? 07/01/2022 16:16 Mucus SLIGHT /LPF ()?? 07/01/2022 16:16 Hold Urine Culture Testing available 48 hours from time of collection. ()?? 07/01/2022 16:16 ?? VIROLOGY Influenza A PCR NEGATIVE ()?? 07/01/2022 16:16 Influenza B PCR NEGATIVE ()?? 07/01/2022 16:16 RSV PCR NEGATIVE ()?? 07/01/2022 16:16 COVID-19 PCR Specimen Source NASAL ()?? 07/01/2022 16:16 COVID-19 PCR Result NEGATIVE ()?? 07/01/2022 16:16 ? Urinalysis Albumin, Urine: NEGATIVE (16:16) Appear/Color, Urine: LIGHT YELLOW (16:16) Bacteria: SLIGHT Abnormal (16:16) Bilirubin, Urine: NEGATIVE (16:16) Glucose, Urine: NEGATIVE (16:16) Hemoglobin, Urine: 3+ Abnormal (16:16) Hold Urine Culture: Testing available 48 hours from time of collection. (16:16) Ketones, Urine: NEGATIVE (16:16) Leukocyte, Urine: 1+ Abnormal (16:16) Mucus: SLIGHT (16:16) Nitrite, Urine: NEGATIVE (16:16) pH, Urine: 8 (16:16) RBC's, Urine: 3 /HPF (16:16) Specific [place], Urine: 1.004 (16:16) Squamous Epith: <1 (16:16) Urobilinogen: NORMAL (16:16) WBC's, Urine: 4 /HPF (16:16) ?? Microbiology ?? COVID-19, RSV, and Flu A/B, Rapid PCR?? Completed?? Source: Nasal Body Site: Nose Collected Dt/Tm: 07/01/2022 15:28 Last Updated Dt/Tm: 07/01/2022 17:43 ? Cardiology Labs High Sensitivity Troponin (HSTnT): 11 ng/L (07/01/22 15:36:00) ? [1]??CT Abd/Pelvis W/ IV Contrast Only; Adalberto Parks MD 07/01/2022 16:58 EST EKG study * Event Display: ECG 12-Lead Authored Date: Please click on pdf link to open report * Event Display: ECG 12-Lead Authored Date: Ventricular Rate: 55 BPM Atrial Rate: 55 BPM P-R Interval: 156 ms QRS Duration: 96 ms Q-T Interval: 494 ms QTC Calculation(Bazett): 472 ms P Melcroft: 52 degrees R Melcroft: 16 degrees T Melcroft: 40 degrees Sinus bradycardia Otherwise normal ECG No previous ECGs available Confirmed by BALDEMAR SMYTH DO ([id number]) on 07/02/2022 9:25:47 AM [place]: BALDEMAR SMYTH DO [facility] Progress note * Levi Borges MD: PERFORM Event Display: Progress Note Hospital Authored Date: Patient: ??YUDI CARTWRIGHT ? Age:??41 Years?Sex:??Female?:??1980?? Subjective ?? PLEASE NOTE THAT SHE HAS TWO MEDICAL RECORD NUMBERS: THIS ONE ([id number]) + A PRIOR ONE ([id number]) WHERE ALL HER INFORMATION IS ?? Ms. Cartwright is our extremely unfortunate 41 y.o. young lady with a h.o.??mixed alcoholic & hepatitis C (+)??liver cirrhosis / portal hypertension??s/p??TIPS (02/2021, at [facility]),??kidney stones s/p left ureteral stent (03/2022, Dr. Dinh)??with??recurrent UTI's including an episodeof??viridans-group Streptococci??bacteremia (03/2022),??anemia of chronic disease, depression / anxiety / PTSD /??chronic prescription opiate??dependence, h.o. left wrist fracture / dislocation s/p ORIF (08/2009, Dr. Saravia), admitted on 07/01/2022 with acute hepatic encephalopathy / hyperammonemia / pancytopenia / acute hypoxic respiratory failure Currently * Seen still in the ER (B-4) while awaiting bed upstairs * Remains encephalopathic, intermittently opening eyes and trying to answer questions in a slurry voice, but falling back asleep in the middle of the sentence * Afebrile * On 2 L/min O2 via NC * No new bloodwork ordered for today ?? Review of Systems Unobtainable due to encephalopathy Objective Vital Signs?? Temperature: 98.2 DegF (07/02/22 09:33:00) Temperature Route: Axillary (07/02/22 04:03:00) Pulse Rate: 90 bpm (07/02/22 11:25:00) Respiratory Rate: 16 br/min (07/02/22 11:25:00) Systolic Blood Pressure: 121 mm Hg (07/02/22 11:25:00) Diastolic Blood Pressure: 75 mm Hg (07/02/22:25:00) Blood pressure sites: Arm, right (07/02/22 05:56:00) Mean Arterial Pressure: 72 mm Hg (07/02/22 09:33:00) Pulse Pressure: 46 mm Hg (07/02/22:25:00) Oxygen Saturation: 100 % (07/02/22::00) Liters per Minute: 2 L/min (07/02/22::00) Mode of Delivery (Oxygen): Nasal cannula (07/02/22::00) End Tidal CO2: 34 mm Hg (07/02/22 08:00:00) Early Warning Score: 6 (07/02/22 11:33:32) ? Physical Exam Afebrile, Tmax = 98.2 F, HR = 84', BP =??121 / 75 Normocephalic, HERMILO, no thrush, wearing NC at 2 L/min O2 Clear chest to auscultation, few scattered rhonchi / secretions S1 / S2 no murmur [place] abdomen, no rebound LEs (-) for edema.?? Neurologically encephalopathic _ Inpatient Medications Medications (20) Active SCHEDULED: (8) Folic Acid 1 mg Tablet (folic acid 1 mg oral tablet) ??1 mg, By Mouth, Daily Furosemide 40 mg Tablet (furosemide 40 mg oral tablet) ??40 mg, By Mouth, Daily in AM Furosemide Inj (Furosemide ??Inj) ??40 mg 4 mL, IV Push Slowly, Once Lactulose 20 Gm/30mL Syrup (lactulose 10 gm/15 ml oral syrup) ??20 Gm 30 mL, By Mouth, 3 times a day NaCl 0.9% Flush 3ml (NaCL 0.9% Flush) ??3 mL, IV Push, Every 8 hours Rifaximin 550 mg Tab (RifAXIMIN Tablet) ??550 mg, By Mouth, 2 times a day Spironolactone 25 mg Tablet (spironolactone 25 mg oral tablet) ??25 mg, By Mouth, Daily in AM Thiamine 100 mg Inj (Thiamine Inj) ??100 mg 1 mL, IV Push Slowly, Daily CONTINUOUS: (0) PRN: (12) Acetaminophen 325 mg Tablet (Acetaminophen Tablet) ??650 mg, By Mouth, Every 4 hours Dextromethorphan-Guaifenesin 20 mg-200 mg/10 mL Liqu UD (Robitussin DM Liquid) ??10 mL, By Mouth, Every 4 hours Dextrose Inj Syringe (Dextrose 50% Inj Syringe (25Gm)) ??12.5 Gm, IV Push Slowly, Every 20 minutes Dextrose Inj Syringe (Dextrose 50% Inj Syringe (25Gm)) ??25 Gm, IV Push Slowly, Every 15 minutes Glucagon 1 mg Inj (Glucagon Inj) ??1 mg, Intramuscular, Once Glucose 40% Gel (15 Gm) (Glucose Gel) ??15 Gm, By Mouth, Every 20 minutes Glucose 40% Gel (15 Gm) (Glucose Gel) ??30 Gm, By Mouth, Every 20 minutes Melatonin 3 mg Tablet (Melatonin Tablet) ??3 mg, By Mouth, Daily at bedtime NaCl 0.9% Flush 3ml (NaCL 0.9% Flush) ??3 mL, IV Push, Every 8 hours Polyethylene Glycol 17 Gm Powder (MiraLax Powder) ??17 Gm 1 pack/packet, By Mouth, Daily Senna 8.6 mg / Docusate 50 mg tablet (Docusate/Senna Tablet) ??1 tablet, By Mouth, 2 times a day Simethicone 80 mg Chewable Tablet (Simethicone Tablet) ??80 mg, Chew, 3 times a day ? Assessment/Plan ? Hepatic encephalopathy (K72.90):??. Liver cirrhosis, alcoholic (K70.30):??. Portal hypertension (K76.6):??. Hepatitis C (B19.20):??. Pancytopenia (D61.818):??. Acute hypoxemic respiratory failure (J96.01):??. S/P TIPS (transjugular intrahepatic portosystemic shunt) (Z95.828):? Heart-breaking in someone so young. Plan: * On lactulose + rifaximin * On furosemide??+ spironolactone * On thiamine??+ folate * Proactive O2 supplementation to keep O2 sats > 90% and wean as tolerated * Gently reorient and encourage sleep / wake cycle * Avoid sedatives / benzodiazepines / antihistamines / anticholinergics.? VTE Prophylaxis:? On pneumoboots Heparinoids avoided due to pancytopenia ?? Ongoing Medical Necessity:? Acute hepatic encephalopathy / hyperammonemia / pancytopenia / acute hypoxic respiratory failure ?? Discharge Planning:? Unclear yet ? Note * Levi Borges MD: PERFORM Event Display: Discharge/Transfer Note Hospital Authored Date: [id number] Patient: ??CARTWRIGHT, CRYSTAL ? Age:??41 Years?Sex:??Female?:??1980?? Patient Information [facility]: [facility] Primary Care Physician: Not on Staff, PCP Admit Date/Time: 07/01/22 17:43 Discharge Disposition Discharge Disposition: Home: No Services Discharge Diagnosis Hepatic encephalopathy (K72.90) Liver cirrhosis, alcoholic (K70.30) Portal hypertension (K76.6) Hepatitis C (B19.20) Pancytopenia (D61.818) Acute hypoxemic respiratory failure (J96.01) S/P TIPS (transjugular intrahepatic portosystemic shunt) (Z95.828) Hypokalemia (E87.6) Hypomagnesemia (E83.42) Methadone use (F11.90) PTSD (post-traumatic stress disorder) (F43.10) Depression with anxiety (F41.8) ?? _ Discharge Medications Folic Acid (folic acid 1 mg oral tablet)?1?Milligram?1?tablet?By Mouth?Daily?for 30?Days Furosemide (furosemide 40 mg oral tablet)?40?Milligram?1?tablet?By Mouth?Daily Nicol Lactulose (lactulose 10 gm/15 ml oral syrup)?30?Milliliter?20?gram?By Mouth?3 times a day?for 30?Days Methadone (methadone 10 mg oral tablet)?2.5?tab(s)?25?Milligram?By Mouth?Daily Rifaximin (rifAXIMin 550 mg oral tablet)?1?tab(s)?550?Milligram?By Mouth?2 times a day?for 30?Days Spironolactone (spironolactone 25 mg oral tablet)?25?Milligram?1?tablet?By Mouth?Daily in AM?for 30?Days Thiamine (thiamine 100 mg oral tablet)?100?Milligram?1?tablet?By Mouth?Daily?for 30?Days ? Allergies Allergies ?(Active and Proposed Allergies Only) NKA? (Severity: Unknown severity, Onset: Unknown) ? PCP Follow-Up/Heads-Up ?? Prompt f/u with PCP for post-discharge eval, medication adjustments & plan of care ?? -- Objective Assessment and Plan ?? Assessment:? PLEASE NOTE THAT SHE HAS TWO MEDICAL RECORD NUMBERS: THIS ONE ([id number]) + A PRIOR ONE ([id number]) WHERE ALL HER INFORMATION IS ?? Ms. Cartwright is our extremely unfortunate 41 y.o. young lady with a h.o. mixed alcoholic & hepatitis C (+) liver cirrhosis / portal hypertension s/p TIPS (02/2021, at [facility]), kidney stones s/p left ureteral stent (03/2022, Dr. Dinh) with recurrent UTI's including an episode of viridans-group Streptococci bacteremia (03/2022), anemia of chronic disease, depression / anxiety / PTSD/ chronic prescription opiate dependence (on a methadone program), h.o. left wrist fracture / dislocation s/p ORIF (08/2009, Dr. Saravia), admitted on 07/01/2022 with acute hepatic encephalopathy / hyperammonemia / pancytopenia / acute hypoxic respiratory failure ?? She is now back to baseline mentation and adamant to go home. Methadone 25 mg given this morning and verified by her nurse with her methadone program ? Hepatic encephalopathy (K72.90):??. Liver cirrhosis, alcoholic (K70.30):??. Portal hypertension (K76.6):??. Hepatitis C (B19.20):??. Pancytopenia (D61.818):??. Acute hypoxemic respiratory failure (J96.01):??. S/P TIPS (transjugular intrahepatic portosystemic shunt) (Z95.828):? Heart-breaking in someone so young. Plan: * On lactulose + rifaximin * On furosemide??+ spironolactone * On thiamine??+ folate * Proactive O2 supplementation to keep O2 sats > 90% and wean as tolerated * Gently reorient and encourage sleep / wake cycle * Avoid sedatives / benzodiazepines / antihistamines / anticholinergics.? Hypokalemia (E87.6):??. Hypomagnesemia (E83.42):? Closely monitor renal function and lytes / divalents, replacing accordingly Avoid nephrotoxics / NSAIDs? Methadone use (F11.90):? On methadone ?? PTSD (post-traumatic stress disorder) (F43.10):??. Depression with anxiety (F41.8):? Outpatient f/u with PCP / counselor ? -- ? Vital Signs?? Temperature: 98.4 DegF (07/03/22 07:51:00) Temperature Route: Oral (07/03/22 07:51:00) Pulse Rate: 60 bpm (07/03/22 07:51:00) Respiratory Rate: 18 br/min (07/03/22 07:51:00) Systolic Blood Pressure: 138 mm Hg (07/03/22 07:51:00) Diastolic Blood Pressure: 81 mm Hg (07/03/22 07:51:00) Blood pressure sites: Arm, left (07/03/22 07:51:00) Mean Arterial Pressure: 103 mm Hg (07/03/22 06:27:00) Pulse Pressure: 57 mm Hg (07/03/22 07:51:00) Oxygen Saturation: 98 % (07/03/22 07:51:00) Liters per Minute: 2 L/min (07/02/22 11:25:00) Mode of Delivery (Oxygen): Room air (07/03/22 07:51:00) Early Warning Score: 6 (07/03/22 07:53:45) ? . Physical Exam Afebrile, Tmax = 98.4 F, HR = 60', BP =??138 / 81 Normocephalic, HERMILO, no thrush, on room air Clear chest to auscultation, few scattered rhonchi / secretions S1 / S2 no murmur [place] abdomen, no rebound LEs (-) for edema.?? Neurologically mentation is back to baseline. Follow-Up Appointments Added Follow Up ?Time Frame ?Comments Not on Staff, PCP ?? FIRST AVAILABLE ?? Results Test Name Test Result Date/TimeWBC 5.3 k/mm3 07/03/2022 05:48 EST Hgb 9.1 Gm/dL (Low) 07/03/2022 05:48 EST Hct 28.3 % (Low) 07/03/2022 05:48 EST Platelet Count 71 k/mm3 (Low) 07/03/2022 05:48 EST Sodium 142 mmol/L 07/03/2022 05:48 EST Potassium 3.3 mmol/L (Low) 07/03/2022 05:48 EST Chloride 108 mmol/L (High) 07/03/2022 05:48 EST Bicarbonate Level 25 mmol/L 07/03/2022 05:48 EST Anion Gap 9 07/03/2022 05:48 EST BUN 13 mg/dL 07/03/2022 05:48 EST Creatinine-Blood 0.6 mg/dL 07/03/2022 05:48 EST Estimated GFR Creatinine 115 ML/MIN/1.73 M2 07/03/2022 05:48 EST Phosphorus 3.7 mg/dL 07/03/2022 05:48 EST Magnesium 1.5 mg/dL (Low) 07/03/2022 05:48 EST Protein, Total 5.8 Gm/dL (Low) 07/03/2022 05:48 EST Albumin 2.4 Gm/dL (Low) 07/03/2022 05:48 EST Alkaline Phosphatase 144 units/L (High) 07/03/2022 05:48 EST AST (SGOT) 42 units/L (High) 07/03/2022 05:48 EST ALT (SGPT) 24 units/L 07/03/2022 05:48 EST Bilirubin, Total 2.0 mg/dL (High) 07/03/2022 05:48 EST Bilirubin, Direct 0.8 mg/dL (High) 07/03/2022 05:48 EST Bilirubin, Indirect 1.2 mg/dL (High) 07/03/2022 05:48 EST 40 minutes spent on discharge summary / bedside care / coordination of care Portable XR Chest Views * BHSPowerscribe , CIS S: TRANSCRIBE Charly FERNANDEZ, Devrim: VERIFY Event Display: Result: Authored Date: Chest Portable Hx of Present Illness: pt coming from friends house, pt noncompliant with lactulose. Per friend pt had similar issue last year. Friend called EMS for pt being altered. Pt minimally interacting with EMS; Reason: Shortness of Breath; Clinical Question(s): CHF; Order Comment: 1610 came to do exam pt.,was agitated and was not going to be cooperative. vdw COMPARISON: None available. FINDINGS: LINES AND TUBES: None. LUNGS AND PLEURA: Clear lungs. Pulmonary vascular congestion without overt interstitial edema. No pleural effusion. No pneumothorax. HEART, MEDIASTINUM AND HERMINIA: Mild prominence of the cardiac silhouette. Normal mediastinal and hilar contour. BONES AND SOFT TISSUES: No acute abnormality. Chronic appearing rib deformities in the left lateral fourth and fifth ribs. There is a vascular stent in the right upper quadrant (? TIPS). IMPRESSION: Pulmonary vascular congestion without interstitial edema. WSN: [id number] Ordering Physician: Byron Shin Dictated By: Adalberto Parks MD Dictated Date/Time: 07/01/22 4:41 pm Reviewed By: Adalberto Parks MD Signed By: Adalberto Parks MD Signed Date/Time: 07/01/22 4:41 pm Transcribed By: TATE Transcribed Date/Time: 07/01/22 4:[address] Head WO contrast * BHSPowerscribe , CIS S: TRANSCRIBE Abdirahman Cleaning MD: VERIFY Event Display: Result: Authored Date: [id number] CT Head/Brain W/O Contrast INDICATION: Hx of Present Illness: pt coming from friends house, pt noncompliant with lactulose. Per friend pt had similiar issue last year. Friend called EMS for pt being altered. Pt minimally interacting with EMS; Reason: Other:; AMS; Clinical Question(s): Hematoma TECHNIQUE: Noncontrast head CT using axial technique and reconstructed in axial and coronal planes.Iterative reconstruction techniques are used to optimize dose and image quality. CTDIvol Head: 46.80 mGy, DLP Head: 774 mGy*cm. COMPARISON: None. FINDINGS: Employment Services Director view findings, lines and tubes: None. BRAIN AND EXTRA-AXIAL SPACES: No parenchymal hemorrhage, midline shift, or mass effect. Crowe-white matter differentiation is wellpreserved. No acute infarct. Ventricles, sulci, and basilar cisterns are normal. No white matter lesions. No subarachnoid hemorrhage. No subdural or epidural collection. CALVARIUM, SKULL BASE, AND SOFT TISSUES: No fractures or suspicious bony lesions. The paranasal sinuses and mastoid air cells are clear. Visualized orbits and globes are intact. The extracranial soft tissues are unremarkable. IMPRESSION: No acute intracranial pathology. WSN: [id number] Ordering Physician: Byron Shin Dictated By: Abdirahman Cleaning MD Dictated Date/Time: 07/01/22 5:05 pm Reviewed By: Abdirahman Cleaning MD Signed By: Abdirahman Cleaning MD Signed Date/Time: 07/01/22 5:05 pm Transcribed By: TATE Transcribed Date/Time: 07/01/22 4:[address] Abdomen and Pelvis W contrast IV * BHSPowerscaustynbe , CIS S: TRANSCRIBE Charly FERNANDEZ, Devrim: VERIFY Event Display: Result: Authored Date: CT Abd/Pelvis W/ IV Contrast Only Hx of Present Illness: pt coming from friends house, pt noncompliant with lactulose. Per friend pt had similar issue last year. Friend called EMS for pt being altered. Pt minimally interacting with EMS; Reason: Other:; Abdominal tenderness.; Clinical Question(s): Abscess; Order Comment: TECHNIQUE: Spiral CT through the abdomen and pelvis with IV contrast formatted in 3 planes. 100 cc of Omnipaque 300 was administered intravenously. This study was performed without oral contrast. Weight-based protocol using automatic tube modulation was used to optimize exposure parameters. CTDIvol Body: 17.60 mGy, DLP Body: 1078 mGy*cm. COMPARISON: None. FINDINGS: Employment Services Director View Findings, Lines and Tubes: None. Visualized Chest: Lung bases are clear. No pleural effusion. The heart is normal in size. No pericardial effusion. Diaphragm: Normal. Liver: Nodular contour, suggestive of cirrhotic changes. There is a TIPS in place with patent lumen. Gallbladder: No CT evidence of gallbladder pathology. Bile ducts: No biliary ductal dilation. Spleen: Splenomegaly measuring 15.2 cm craniocaudally. Pancreas: Normal. Adrenal glands: Normal. Kidneys and ureters: There is an appropriately positioned double-J stent in the left ureter. Mild left hydronephrosis. Enhancement in the left renal parenchyma is slightly heterogeneous. No hydronephrosis, stones, or suspicious masses. Small hypodensities that are too small to characterize are noted, requiring no dedicated follow up. Bladder: Normal. Reproductive organs: Ovaries are enlarged and contain multiple cystic lesions. The right ovary measures 4.6 x 4 x 4.6 cm and the left ovary measures 4.4 x 3.4 x 3.2 cm. Uterine fundus is nodular, likely due to fibroids. Stomach, small bowel, and large bowel: No abnormal wall thickening or distention. Large amount of stool retention throughout the colon without evidence of stercoral colitis.. Appendix: Normal. Peritoneum and retroperitoneum: No ascites or pneumoperitoneum. No omental or mesenteric lesions. Lymph nodes: No enlarged lymph nodes. Blood vessels: Normal. No aneurysm. No evidence of venous thrombosis. Abdominal and pelvic wall: Unremarkable. Bones: No acute abnormality. Severe degenerative disc disease at L5-S1 with near complete loss of disc space and disc vacuum phenomenon. IMPRESSION: 1. Appropriately positioned double-J stent in the left ureter with mild left hydronephrosis. Enhancement in the left renal parenchyma is heterogeneous. Please correlate with urinalysis findings to exclude pyelonephritis. 2. Enlarged ovaries containing multiple cystic lesions. Follow-up with nonemergent ultrasound should be considered. 3. Cirrhotic liver with TIPS in place and splenomegaly. 4. Constipation without evidence of bowel obstruction or stercoral colitis. WSN: [id number] Ordering Physician: Byron Shin Dictated By: Adalberto Parks MD Dictated Date/Time: 07/01/22 5:20 pm Reviewed By: Adalberto Parks MD Signed By: Adalberto Parks MD Signed Date/Time: 07/01/22 5:20 pm Transcribed By: TATE Transcribed Date/Time: 07/01/22 5:04 pm Patient Care team information Care Team Personnel Name: Bj Rivera MD Position: [facility] GI MD Member Role: Lifetime Consulting Physician Address: Address: [address] [place] [address], [address] [facility] [place] [address]- Name: Aimee Pereira RN Position: [facility] RN Member Role: Primary Care Nurse Name: Linda Sandy RN Position: [facility] RN Member Role: Primary Care Nurse Name: Isabella Merlos RN Position: [facility] RN Member Role: Primary Care Nurse Name: Luke Russell RN Position: [facility] RN Member Role: Primary Care Nurse Name: Virgil Campos RN Position: [facility] RN Member Role: Primary Care Nurse Name: Cliff Mo RN Position: [facility] RN Member Role: Primary Care Nurse Name: Goldy Lamar Position: [facility] RN Member Role: Primary Care Nurse Name: Katina Kelly RN Position: [facility] RN Member Role: Primary Care Nurse Name: Rubia Merida RN Position: [facility] RN Member Role: Primary Care Nurse Name: Jonh Melgar MD Position: [facility] Physician -Physician Practices Member Role: Lifetime Consulting Physician Address: Address: [address] [place] [id number] [place] Name: Anibal Peace RN Position: [facility] RN Member Role: Primary Care Nurse Name: Colleen Leal RN Position: [facility] RN Member Role: Primary Care Nurse Name: Davonte Rosario RN Position: S RN Member Role: Primary Care Nurse Name: Not on Staff, PCP Position: [facility] Physician (General Medicine) Member Role: PCP Name: Kemal Pulido MD Position: [facility] Renal MD Member Role: Lifetime Consulting Physician Address: Address: [address] [place] [address] [address] [facility] [place] [address]- Name: Mariam Melendrez RN Position: [facility] RN Member Role: Primary Care Nurse Name: Leticia Lobato RN Position: [facility] RN Member Role: Primary Care Nurse Name: Kyle Lui RN Position: [facility] RN Member Role: Primary Care Nurse Name: Janett Mendzoa RN Position: [facility] RN Member Role: Primary Care Nurse Name: Dimas Vazquez RN Position: [facility] RN Member Role: Primary Care Nurse Name: Tyson Blum MD Position: [facility] Renal MD Member Role: Lifetime Consulting Physician Address: Address: [address] [place] [address] [facility] [address] Name: Emma Barkley RN Position: [facility] RN Member Role: Primary Care Nurse Name: Emma Hardy RN Position: [facility] RN Member Role: Primary Care Nurse Name: Janell Gomez Position: [facility] RN Member Role: Primary Care Nurse Name: Orlando Conn RN Position: [facility] RN Member Role: Primary Care Nurse Name: Kentrell MURCIA Attending Position: [facility] ED Medicine MD Name: Megan Best Position: [facility] ED TA [facility] Name: Syl Garcia RN Position: [facility] ED RN W/OE and Tasks Member Role: Patient Care Provider Care Team Related Persons Name: ARMANDOLUIS F Address: home [address] [place] [id number] Name: DEV MCDONNELL
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
--- OUTSIDE RECORDS SUMMARY | 2023-11-20 18:01 | XMS_ITS | Continuity of Care Document ---
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 commands. At start of shift pt frequently getting up, roaming hallway and dosing off while standing. Unable to be redirected. Security called and and IV zyprexa given with positive effect. Pt sinus rhythm on telemetry. Sleeping for most of shift. Safety checks completed. Hourly rounds maintained. See CIS for full biophysical assessment. . Note * Ty FERNANDEZ, [place]: PERFORM, MODIFY, MODIFY Event Display: Discharge/Transfer Note Hospital Authored Date: Patient: ??YUDI CALDERON ? Age:??42 Years?Sex:??Female?:??1980?? Patient Information Discharge Location: S2 Primary Care Physician: Not on Staff, PCP Admit Date/Time: 09/07/23 14:25 Discharge Disposition Discharge Disposition: ?? Discharge Diagnosis AMS (altered mental status) (R41.82) Hepatic encephalopathy (K76.82) Liver cirrhosis (K74.60) Substance use disorder (F19.90) Anxiety and depression (F41.9) Depression, unspecified (F32.A) Anemia (D64.9) ?? _ Discharge Medications ?. ? Hospital Course ?? 42-year-old female patient with medical history significant for decompensated liver cirrhosis (alcoholic - hepatitis C, status post TIPS), substance use disorder, depression and anxiety disorders whopresented to the emergency department for evaluation of altered mental status and being admitted with hepatic encephalopathy. ?? Patient was being treated with lactulose and rifaximin for hepatic encephalopathy.?? When I went tosee her in the morning, she was alert oriented x 3, however had slow speech, flapping tremors.?? I requested her to stay 1 more night for monitoring purposes, which she agreed. ?? Later in the afternoon, nurse??notified me that patient wanted to leave. keeping in mind her altered mental status, slowness in response and flapping tremor, I said to the nurse??that I would not be able to discharge her medically.?? So, patient wanted to leave AMA. ??I asked nurse that I would come to see the patient.?? However, before I could see her nurse notified that??she left AMA.?? Few minutes later patient came back to the floor, asking for her medications.?? Nurse reached out to me again, I requested nurse to let the patient stay in the floor so that I could prescribe her some medications.?? However upon arrival I got to know that patient already left.?? I called the phone number in the facesheet, however it is of a Somali-speaking person.?Later I ??called her primary contact, left voice message to call me back.?? Could not prescribe any medication to the patient. ?? Final Diagnosis AMS (altered mental status) (R41.82):??- Hepatic encephalopathy (K76.82):??- Liver cirrhosis (K74.60):?? Anemia (D64.9):?? Substance use disorder (F19.90):?? Anxiety and depression (F41.9):? Objective Vital Signs?? Temperature: 98.2 DegF (09/08/23 11:16:00) Temperature Route: Oral (09/08/23 11:16:00) Pulse Rate: 65 bpm (09/08/23 11:16:00) Respiratory Rate: 18 br/min (09/08/23 11:38:00) Systolic Blood Pressure: 108 mm Hg (09/08/23 11:16:00) Diastolic Blood Pressure: 56 mm Hg (09/08/23 11:16:00) Blood pressure sites: Arm, left (09/08/23 11:16:00) Mean Arterial Pressure: 73 mm Hg (09/08/23 11:16:00) Pulse Pressure: 52 mm Hg (09/08/23 11:16:00) Oxygen Saturation: 97 % (09/08/23 11:16:00) Mode of Delivery (Oxygen): Room air (09/08/23 11:16:00) Early Warning Score: 0 (09/08/23 14:17:43) ? . Physical Exam Pending Results Blood Culture ordered on 09/07/2023 Blood Culture #2 ordered on 09/07/2023 Home Health Face to Face ^HomeHealthFTF _ minutes spent on discharge Patient Care team information Care Team Personnel Name: Bj Rivera MD Position: [facility] Physician - Gastroenterology Member Role: Lifetime Consulting Physician Address: Address: [address] [place] [address], [address] [facility] [address] Name: Aimee Pereira RN Position: [facility] RN Member Role: Primary Care Nurse Name: Mariano Perez Position: [facility] RN Member Role: Primary Care Nurse Name: Jeanna Barclay RN Position: [facility] RN Member Role: Primary Care Nurse Name: Elba Castillo RN Position: [facility] RN Member Role: Primary Care Nurse Name: Janett Dean RN Position: [facility] SN RN Member Role: Primary Care Nurse Name: Isabella Merlos RN Position: [facility] RN Member Role: Primary Care Nurse Name: Shikha Villafana RN Position: [facility] RN Member Role: Primary Care Nurse Name: Luke Russell RN Position: [facility] RN Member Role: Primary Care Nurse Name: Virgil Campos RN Position: [facility] RN Member Role: Primary Care Nurse Name: Ishaan Burton Jr, RN Position: [facility] RN Member Role: Primary Care Nurse Name: Niki Larkin RN Position: [facility] RN Member Role: Primary Care Nurse Name: Clare Romano RN Position: [facility] RN Member Role: Primary Care Nurse Name: Cliff Mo RN Position: [facility] RN Member Role: Primary Care Nurse Name: Goldy Lamar Position: [facility] RN Member Role: Primary Care Nurse Name: Katina Kelly RN Position: [facility] RN Member Role: Primary Care Nurse Name: Rubia Merida RN Position: [facility] RN Member Role: Primary Care Nurse Name: Nesha Browne Position: [facility] RN Member Role: Primary Care Nurse Name: Jonh Melgar MD Position: [facility] Physician - Primary Care Member Role: Lifetime Consulting Physician Address: Address: [address] [place] [address]- [place] Name: Anibal Peace RN Position: [facility] RN Member Role: Primary Care Nurse Name: Colleen Leal RN Position: [facility] RN Member Role: Primary Care Nurse Name: Davonte Rosario RN Position: [facility] RN Member Role: Primary Care Nurse Name: Kristal Hay RN Position: [facility] RN Member Role: Primary Care Nurse Name: Not on Staff, PCP Position: [facility] Physician (General Medicine) Member Role: PCP Name: Tracy Chaparro RN Position: [facility] RN Member Role: Primary Care Nurse Name: Kemal Pulido MD Position: [facility] Renal MD Member Role: Lifetime Consulting Physician Address: Address: [address] [facility] [address] [facility] [place] [address]- Name: Mariam Melendrez RN Position: [facility] RN Member Role: Primary Care Nurse Name: Leticia Lobato RN Position: [facility] RN Member Role: Primary Care Nurse Name: Emma Martin RN Position: [facility] RN Member Role: Primary Care Nurse Name: Kyle Lui RN Position: [facility] RN Member Role: Primary Care Nurse Name: Jessie Ann RN Position: [facility] RN Member Role: Primary Care Nurse Name: Purvi Rivera RN Position: [facility] RN Member Role: Primary Care Nurse Name: Naina Peng RN Position: [facility] RN Member Role: Primary Care Nurse Name: Dimas Vazquez RN Position: [facility] ED RN W/OE and Tasks Member Role: Primary Care Nurse Name: Tyson Blum MD Position: [facility] Renal MD Member Role: Lifetime Consulting Physician Address: Address: [address] [facility] [address] Name: Emma Hardy RN Position: S RN Member Role: Primary Care Nurse Name: Blanca Rai RN Position: S RN Member Role: Primary Care Nurse Name: Janell Gomez RN Position: S RN Member Role: Primary Care Nurse Name: Orlando Conn RN Position: S RN Member Role: Primary Care Nurse Care Team Related Persons Name: LUIS F ROBERTS Address: [place] [address] Name: DEV MCDONNELL
--- OUTSIDE RECORDS SUMMARY | 2023-11-20 18:02 | XMS_ITS | Continuity of Care Document ---
Author Organization [facility] ter Address [address] [place] [address]- Care Team Providers Care Word Processing Supervisor Name Role Phone Not on Staff, PCP Primary Care Physician Unavail able Encounter [facility] Date(s): 07/26/22 - 08/25/[address] [address] Attending Physician: Brock Shankar MD Referring Physician: Brock Shankar MD Allergies, Adverse Reactions, Alerts No Known [...] 07/03/22 9:12:00 EST, Route to Pharmacy Electronically, [facility], Partial fill upon patient request if [...] 1 Refills, Maintenance, 07/03/22 9:12:00 EST, Tablet, [facility], Partial fill upon patient request if [...] 05/22/22 13:39:00 EST, Route to Pharmacy Electronically, [facility], Partial fill upon patient [...] Team Personnel Name: Bj Rivera MD Position: [facility] CAS MD Member Role: Lifetime Consulting Physician Address: Address: [address] [place] [address], [address] [facility] [address] Name: Aimee Pereira RN Position: [facility] RN Member Role: Primary Care Nurse Name: Mariano Perez Position: [facility] RN Supv Member Role: Primary Care Nurse Name: Jeanna Barclay RN Position: [facility] RN Member Role: Primary Care Nurse Name: Elba Castillo RN Position: S RN Member Role: Primary Care Nurse Name: Linda Sandy RN Position: [facility] RN Member Role: Primary Care Nurse Name: Isabella Merlos RN Position: [facility] RN Member Role: Primary Care Nurse Name: Luke Russell RN Position: [facility] RN Member Role: Primary Care Nurse Name: Virgil Campos RN Position: [facility] RN Member Role: Primary Care Nurse Name: Ishaan Burton Jr, RN Position: [facility] RN Member Role: Primary Care Nurse Name: Faby Rodriguez Position: [facility] RN Member Role: Primary Care Nurse Name: Leslie Valle RN Position: S RN Member Role: Primary Care Nurse Name: Clare Romano RN Position: S RN Member Role: Primary Care Nurse Name: Cliff Mo RN Position: [facility] RN Member Role: Primary Care Nurse Name: Goldy Lamar Position: [facility] RN Member Role: Primary Care Nurse Name: Katina Kelly RN Position: [facility] RN Member Role: Primary Care Nurse Name: Rubia Merida RN Position: [facility] RN Member Role: Primary Care Nurse Name: Nesha Browne Position: [facility] RN Member Role: Primary Care Nurse Name: Jonh Melgar MD Position: [facility] Physician -Physician Practices Member Role: Lifetime Consulting Physician Address: Address: [address] [place] [address]- Name: Anibal Peace RN Position: [facility] RN Member Role: Primary Care Nurse Name: Colleen Leal RN Position: [facility] RN Member Role: Primary Care Nurse Name: Davonte Rosario RN Position: [facility] RN Member Role: Primary Care Nurse Name: Not on Staff, PCP Position: [facility] Physician (General Medicine) Member Role: PCP Name: Tracy Chaparro RN Position: [facility] RN Member Role: Primary Care Nurse Name: Kemal Pulido MD Position: [facility] Renal MD Member Role: Lifetime Consulting Physician Address: Address: [address] [place] [address] [facility] [place] [address]- Name: Mariam Melendrez RN Position: [facility] RN Member Role: Primary Care Nurse Name: Leticia Lobato RN Position: [facility] RN Member Role: Primary Care Nurse Name: Emma Martin RN Position: [facility] RN Member Role: Primary Care Nurse Name: Kyle Lui RN Position: [facility] RN Member Role: Primary Care Nurse Name: Janett Mendoza RN Position: [facility] RN Member Role: Primary Care Nurse Name: Jessie Ann RN Position: [facility] RN Supv Member Role: Primary Care Nurse Name: Purvi Rivera RN Position: [facility] RN Member Role: Primary Care Nurse Name: Naina Peng RN Position: [facility] RN Member Role: Primary Care Nurse Name: Dimas Vazquez RN Position: [facility] RN Member Role: Primary Care Nurse Name: Tyson Blum MD Position: [facility] Renal MD Member Role: Lifetime Consulting Physician Address: Address: [address] [place] [address] [facility] [place] [address]- Name: Jessie Tovar RN Position: [facility] RN Member Role: Primary Care Nurse Name: Emma Barkley RN Position: S RN Member Role: Primary Care Nurse Name: Emma Hardy RN Position: S RN Member Role: Primary Care Nurse Name: Janell Gomez Position: [facility] RN Member Role: Primary Care Nurse Name: Orlando Conn RN Position: [facility] RN Member Role: Primary Care Nurse Care Team Related Persons Name: LUIS F ROBERTS Address: [place] [address] Name: DEV MCDONNELL
--- OUTSIDE RECORDS SUMMARY | 2023-11-20 18:03 | XMS_ITS | Continuity of Care Document ---
Author Organization [facility] Address [address] [place] [address]- Care Team Providers Care Car Rental Clerk Name Role Phone Rupa FERNANDEZ, Theodora Melendez Primary Care Physician Encounter [facility] Date(s): 12/11/21 - 01/10/22 [facility] [address] [place] [address]- [place] Allergies, Adverse Reactions, Alerts No Known [...] 04/20/22 15:20:00 EDT, 11/03/21 15:20:00 EDT, Tablet, [facility], Partial fill upon patient request if the prescription is for a schedule II opioid drug., 158,... Start Date: 11/03/21 Stop Date: 04/20/22 Status: Ordered gabapentin 300 mg oral capsule 600 mg, 2, capsule, By Mouth, 2 times a day, # 28 capsule, Refills 0, Tot. Refills 0, Maintenance, 06/08/21 8:48:00 EST, Route to Pharmacy Electronically, [id number], Partial fill upon patient request if the prescription is for a schedule II o... Start Date: 06/08/21 Stop Date: 06/15/21 Status: Ordered lactulose 10 gm/15 ml oral syrup 30 mL = 20 Gm, By Mouth, 4 times a day, # 840 mL, 0 Refills, Maintenance, 01/10/22 16:05:00 EDT, Syrup, [facility]/pharmacy #[id number], Partial fill upon patient request [...] 8:48:00 EST, Route to Pharmacy Electronically, [id number], Partial fill upon patient request if the [...]
--- OUTSIDE RECORDS SUMMARY | 2023-11-20 18:03 | XMS_ITS | Continuity of Care Document ---
Author Organization [facility] Address [address] [place] [address]- Care Team Providers Care Forestry Aid Name Role Phone Not on Staff, PCP Primary Care Physician Unavail able Encounter [facility] Date(s): 07/19/22 - 08/18/22 [facility] [address] [place] [address]- Attending Physician: Katie Clayton Admitting Physician: Katie Clayton Referring Physician: Katie Clayton Allergies, Adverse Reactions, Alerts No Known Allergies [...] 07/03/22 9:12:00 EST, Route to Pharmacy Electronically, [facility], Partial fill upon patient request [...] 1 Refills, Maintenance, 07/03/22 9:12:00 EST, Tablet, [facility], Partial fill upon patient request [...] 05/22/22 13:39:00 EST, Route to Pharmacy Electronically, [facility], Partial fill upon [...] in last 30 days. Sex Note * Event Display: IR Special Procedures, Non- Authored Date: * Event Display: IR Special Procedures, Non- Authored Date: * Event Display: Ultrasound Abdomen, Non- Authored Date: * Event Display: IR Special Procedures, Non- Authored Date: Patient Care team information Care Team Personnel Name: Bj Rivera MD Position: [facility] MD Member Role: Lifetime Consulting Physician Address: Address: [address] [place] [address], [address] [facility] [address] Name: Aimee Pereira RN Position: [facility] RN Member Role: Primary Care Nurse Name: Jeanna Barclay RN Position: S RN Member Role: Primary [...] Nurse Name: Ishaan Burton Jr, RN Position: S RN Member Role: Primary Care Nurse Name: Faby Rodriguez Position: [facility] RN Member Role: Primary Care Nurse Name: Leslie Valle RN Position: [facility] RN Member Role: Primary Care Nurse Name: Clare Romano RN Position: [facility] RN Member Role: Primary Care Nurse Name: Cliff Mo RN Position: [facility] RN Member Role: Primary Care Nurse Name: Goldy Lamar Position: [facility] RN Member Role: Primary Care Nurse Name: Katina Kelly RN Position: [facility] RN Member Role: Primary Care Nurse Name: Rubia Merida RN Position: [facility] RN Member Role: Primary Care Nurse Name: Nesha Browne Position: [facility] RN Member Role: Primary Care Nurse Name: Jonh Melgar MD Position: [facility] Physician -Physician Practices Member Role: Lifetime Consulting Physician Address: Address: [address] [place] [address]- Name: Anibal Peace RN Position: [facility] RN Member Role: Primary Care Nurse Name: Colleen Leal RN Position: [facility] RN Member Role: Primary Care Nurse Name: Davonte Rosario RN Position: [facility] RN Member Role: Primary Care Nurse Name: Not on Staff, PCP Position: [facility] Physician (General Medicine) Member Role: PCP Name: Tracy Chaparro RN Position: [facility] RN Member Role: Primary Care Nurse Name: Kemal Pulido MD Position: [facility] Renal MD Member Role: Lifetime Consulting Physician Address: Address: [address] [place] [address] [address] [facility] [place] [address]- Name: Mariam Melendrez RN Position: [facility] RN Member Role: Primary Care Nurse Name: Leticia Lobaot RN Position: [facility] RN Member Role: Primary Care Nurse Name: Emma Martin RN Position: [facility] RN Member Role: Primary Care Nurse Name: Kyle Lui RN Position: [facility] RN Member Role: Primary Care Nurse Name: Janett Mendoza RN Position: [facility] RN Member Role: Primary Care Nurse Name: Jessie Ann RN Position: [facility] RN Supbrina Member Role: Primary Care Nurse Name: Purvi Rivera RN Position: [facility] RN Member Role: Primary Care Nurse Name: Naina Peng RN Position: [facility] RN Member Role: Primary Care Nurse Name: Dimas Vazquez RN Position: [facility] RN Member Role: Primary Care Nurse Name: Tyson Blum MD Position: [facility] Renal MD Member Role: Lifetime Consulting Physician Address: Address: [address] [place] [address] [facility] [address] Name: Jessie Tovar RN Position: S RN Member Role: Primary [...] Related Persons Name: LUIS F ROBERTS Address: [place] [address] Name: DEV MCDONNELL
--- OUTSIDE RECORDS SUMMARY | 2023-11-20 18:03 | XMS_ITS | Continuity of Care Document ---
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 Name Role Phone Not on Staff, PCP Primary Care Physician Unavail able Encounter [facility] Date(s): 06/11/22 - 07/26/[address] [address] Attending Physician: Toño Soto MD Admitting Physician: Toño Soto MD Allergies, Adverse Reactions, Alerts Substance Reaction [...] 07/03/22 9:12:00 EST, Route to Pharmacy Electronically, [facility], Partial fill upon [...] 09/01/22 9:12:00 EST, 07/03/22 9:12:00 EST, Syrup, [facility], [...] opioid drug. Start Date: 07/03/22 Status: Ordered rifAXIMin 550 mg oral tablet 1 tablet = 550 mg, By Mouth, 2 times a day, # 60 tablet, 1 Refills, Maintenance, 07/03/22 9:12:00 EST, Tablet, [facility], Partial fill upon patient request if the prescription is for aschedule II opioid drug. Start Date: 07/03/22 Stop Date: 09/01/22 Status: Ordered spironolactone 100 mg oral tablet 100 mg, 1, tablet, By Mouth, Daily, # 30 tablet, Refills 0, Tot. Refills 0, Maintenance, 05/22/22 13:39:00 EST, Route to Pharmacy Electronically, [facility] [...] Team Personnel Name: Bj Rivera MD Position: [facility] GI MD Member Role: Lifetime Consulting Physician Address: Address: [address] [place] [address], [address] [facility] [place] [address]- Name: Aimee Pereira RN Position: [facility] RN Member Role: Primary Care Nurse Name: Linda Sandy RN Position: [facility] RN Member Role: Primary Care Nurse Name: Isabella Merlos RN Position: [facility] RN Member Role: Primary Care Nurse Name: Luke Russell RN Position: [facility] RN Member Role: Primary Care Nurse Name: Virgil Campos RN Position: [facility] RN Member Role: Primary Care Nurse Name: Clare Romano RN Position: [facility] RN Member Role: Primary Care Nurse Name: Cliff Mo RN Position: [facility] RN Member Role: Primary Care Nurse Name: Goldy Lamar Position: [facility] RN Member Role: Primary Care Nurse Name: Katina Kelly RN Position: [facility] RN Member Role: Primary Care Nurse Name: Rubia Merida RN Position: [facility] RN Member Role: Primary Care Nurse Name: Jonh Melgar MD Position: [facility] Physician -Physician Practices Member Role: Lifetime Consulting Physician Address: Address: [address] [place] [address]- [place] Name: Anibal Peace RN Position: [facility] RN Member Role: Primary Care Nurse Name: Colleen Leal RN Position: [facility] RN Member Role: Primary Care Nurse Name: Davonte Rosario RN Position: [facility] RN Member Role: Primary Care Nurse Name: Not on Staff, PCP Position: [facility] Physician (General Medicine) Member Role: PCP Name: Tracy Chaparro RN Position: [facility] RN Member Role: Primary Care Nurse Name: Kemal Pulido MD Position: [facility] Renal MD Member Role: Lifetime Consulting Physician Address: Address: [address] [facility] [place] [place] [address]- Name: Mariam Melendrez RN Position: S RN Member Role: Primary Care Nurse Name: Leticia Lobato RN Position: S RN Member Role: Primary Care Nurse Name: Kyle Lui RN Position: S RN Member Role: Primary Care Nurse Name: Janett Mendoza RN Position: S RN Member Role: Primary Care Nurse Name: Naina Peng RN Position: S RN Member Role: Primary Care Nurse Name: Dimas Vazquez RN Position: S RN Member Role: Primary Care Nurse Name: Tyson Blum MD Position: [facility] Renal MD Member Role: Lifetime Consulting Physician Address: Address: [address] [place] [address] [facility] [place] [address]- Name: Emma Barkley RN Position: S RN Member Role: Primary Care Nurse Name: Emma Hardy RN Position: S RN Member Role: Primary Care Nurse Name: Janell Gomez Position: S RN Member Role: Primary Care Nurse Name: Orlando Conn RN Position: S RN Member Role: Primary Care Nurse Care Team Related Persons Name: LUIS F ROBERTS Address: [address] [address] Name: DEV MCDONNELL
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
--- OUTSIDE RECORDS SUMMARY | 2023-11-20 18:03 | XMS_ITS | Continuity of Care Document ---
Author Organization [facility] Address [address] [place] [address]- Care Team Providers Care Lining Cleaner Name Role Phone Not on Staff, PCP Primary Care Physician Unavail able [facility] Date[facility]): 02/16/22 - 03/18/22 [facility] [address] [place] [address] [place] Allergies, Adverse Reactions, Alerts Substance Reaction [...] 04/20/22 15:20:00 EDT, 11/03/21 15:20:00 EDT, Tablet, [facility], Partial fill upon patient request if the prescription is for a schedule II opioid drug., 158,... Start Date: 11/03/21 Stop Date: 04/20/22 Status: Ordered gabapentin 300 mg oral capsule 600 mg, 2, capsule, By Mouth, 2 times a day, # 28 capsule, Refills 0, Tot. Refills 0, Maintenance, 06/08/21 8:48:00 EST, Route to Pharmacy Electronically, [facility] #[id number], Partial fill upon patient request if the prescription is for a schedule II o... Start Date: 06/08/21 Stop Date: 06/15/21 Status: Ordered lactulose 10 gm/15 ml oral syrup 30 mL = 20 Gm, By Mouth, 4 times a day, for 14 days, # 1,680 mL, 3 Refills, Hard Stop 04/20/22 15:00:00 EDT, 02/23/22 15:00:00 EDT, Syrup, [facility][id number], Partial fill upon patient request if theprescription is for a schedule II opioid drug., 157... Start Date: 02/23/22 Stop Date: 04/20/22 Status: Ordered lactulose 10 gm/15 ml oral syrup 30 mL = 20 Gm, By Mouth, 4 times a day, # 1,680 mL, 3 Refills, Maintenance, 03/07/22 7:54:00 EDT, Syrup, [facility] #[id number], Partial fill upon patient request if the prescription is for a schedule IIopioid drug., 30 mL By Mouth 4 times a day,x14 days... Start Date: 03/07/22 Stop Date: 05/02/22 Status: Ordered Lasix 40 mg oral tablet 40 mg, 1, tablet, By Mouth, Daily, # 30 tablet, Refills 3, Tot. Refills 3, Maintenance, 02/24/22 13:24:00 EDT, Route to Pharmacy Electronically, [facility], Partial fill upon patient request if the prescription is for a schedule II opioi... Start Date: 02/24/22 Status: Ordered methadone 10 mg/5 mL oral solution 11 mL = 22 mg, By Mouth, Daily, 0 Refills, Maintenance, 11/12/21 10:14:00 EDT, Solution, Partial fill upon patient request if the prescription is for a schedule II opioid drug. Start Date: 11/12/21 Status: Ordered ondansetron 4 mg oral tablet 1 tablet = 4 mg, By Mouth, Every 8 hours, TAKE 1 TABLET BY MOUTH EVERY 8 HOURS NEEDED FOR NAUSEA/VOMITING, # 40 tablet, 1 Refills, Maintenance, 02/24/22 13:25:00 EDT, [facility], 157, cm, 02/22/22 5:10:00 EDT, Height, 73.9, kg, ... Start Date: 02/24/22 Status: Ordered spironolactone 100 mg oral tablet 100 mg, 1, tablet, By Mouth, Daily, # 7 tablet, Refills 0, Tot. Refills 0, Maintenance, 06/08/21 8:48:00 EST, Route to Pharmacy Electronically, [facility]/pharmacy #[id number], Partial fill upon patient request if the prescription is for a schedule II opioid drug.... Start Date: 06/08/21 Stop Date: 06/15/21 Status: Ordered Zofran 4 mg oral tablet 1 tablet = 4 mg, By Mouth, Every 8 hours, PRN as needed for nausea/vomiting, # 40 tablet, 2 Refills, Maintenance, 02/02/22 10:18:00 EDT, Tablet, [facility]/pharmacy #[id number], Partial fill upon patient request if the [...] 1/4 pack)/day in last 30 days. Sex Care Team Personnel Name: Not on Staff, PCP
--- OUTSIDE RECORDS SUMMARY | 2023-11-20 18:03 | XMS_ITS | Continuity of Care Document ---
Author Organization [facility] Address [address] [place] [id number]- Care Team Providers Care Salesperson New Cars Name Role Phone Theodora Goode MD Primary Care Physician Encounter [facility] [place] Date(s): 03/21/21 - 04/20/21 [facility] [address] [place] [id number]- Attending Physician: Katie Clayton Admitting Physician: Katie Clayton Referring Physician: AdmtrKatie Allergies, Adverse Reactions, Alerts Substance Reaction Severity [...] 10/04/20 16:27:00 EDT, Route to Pharmacy Electronically, [id number], Partial fill upon patientrequest if the prescription [...] 0 Refills, Maintenance, 10/04/20 16:28:00 EDT, Syrup, [facility][id number], Partial fill upon patient request if the [...] Refills, Maintenance, 10/31/20 18:10:00 EDT, EC Tablet, [facility][id number], Partial fill upon patient request if the [...] 0 Refills, Maintenance, 10/04/20 16:27:00 EDT, Tablet, [id number], Partial fill upon patient request if the prescription is for a schedule II opioid drug., 157.5, cm, 10/04/20 14:02:00 E... Start Date: 10/04/20 Status: Ordered Zofran 4 mg oral tablet 1 tablet = 4 mg, By Mouth, Every 8 hours, PRN as needed for nausea/vomiting, # 270 tablet, 3 Refills, Maintenance, 10/31/20 18:10:00 EDT, Tablet, [id number], Partial fill upon patient request if the [...]
--- OUTSIDE RECORDS SUMMARY | 2023-11-20 18:03 | XMS_ITS | Continuity of Care Document ---
Author Organization [facility] ter Address [address] [place] [id number]- Care Team Providers Care Facetor Name Role Phone Not on Staff, PCP Primary Care Physician Unavail able Encounter [facility] Date(s): 10/09/23 - 10/10/[address] [id number]- Encounter Diagnosis Depression(Final) - 10/10/23 Discharge Disposition: Transfer to [facility] Facility Attending Physician: Sandy Chambers MD Admitting Physician: Sandy Chambers MD Referring Physician: Not on Staff, Referring [...] 10/16/23 15:15:00 EDT, 10/09/23 15:15:00 EDT, Tablet, [id number], Partial fill upon patient request if the [...] 0 Refills, Maintenance, 09/05/22 8:59:00 EST, Capsule, [facility], Partial fill upon patient request if the prescription is for a schedule II opioid drug., 2 capsule By Mouth 2 times a d... Start Date: 09/05/22 Status: Ordered furosemide 40 mg oral tablet 40 mg, 1, tablet, By Mouth, Daily in AM, # 30 tablet, Refills 0, Tot. Refills 0, Maintenance, 09/05/22 8:59:00 EST, Route to Pharmacy Electronically, [facility], Partial fill upon patient request if the prescription is for a schedule II... Start Date: 09/05/22 Status: Ordered gabapentin 100 mg oral capsule 100 mg, 1, capsule, By Mouth, 2 times a day, # 60 capsule, Refills 0, Tot. Refills 0, Maintenance, 09/05/22 8:59:00 EST, Route to Pharmacy Electronically, [facility], Partial fill upon patient request if the prescription is for a schedul... Start Date: 09/05/22 Status: Ordered Gabapentin 50 mg/ml Liquid 100 mg, Liquid, By Mouth, 10/10/23 9:00:00 EDT Start Date: 10/10/23 Stop Date: 10/10/23 Status: Completed ibuprofen 400 mg oral tablet 400 mg, [...] 0 Refills, Maintenance, 09/05/22 8:59:00 EST, Tablet, [facility], [...] 0 Refills, Maintenance, 09/05/22 8:33:00 EST, Tablet, [facility], Partial fill upon patient request if the prescription is for aschedule II opioid drug., 157, cm, 09/05/22 8:06:00... Start Date: 09/05/22 Status: Ordered sertraline 50 mg oral tablet 1 tablet = 50 mg, By Mouth, Daily at bedtime, # 30 tablet, 0 Refills, Maintenance, 09/05/22 8:58:00EST, Tablet, [facility], Partial fill upon patient request if the prescription is fora schedule II opioid drug., 157, cm, 09/05/22 8:06:... Start Date: 09/05/22 Status: Ordered simethicone 80 mg oral tablet, chewable 80 mg, 1, tablet, Chew, 3 times a day, # 90 tablet, Refills 0, Tot. Refills 0, Maintenance, 09/05/22 8:59:00 EST, Route to Pharmacy Electronically, [facility], Partial fill upon patientrequest if the prescription is for a schedule II op... Start Date: 09/05/22 Status: Ordered spironolactone 100 mg oral tablet 100 mg, 1, tablet, By Mouth, Daily, # 30 tablet, Refills 0, Tot. Refills 0, Maintenance, 09/05/22 8:59:00 EST, Route to Pharmacy Electronically, [facility], Partial fill upon patient request if the prescription is for a schedule II opioi... Start Date: 09/05/22 Status: Ordered traZODone 50 mg oral tablet 50 mg, 1, tablet, By Mouth, Daily at bedtime, # 30 tablet, Refills 0, Tot. Refills 0, Maintenance, 09/05/22 8:59:00 EST, [facility] [...] Range]: 1 2 3 Height 158 cm (10/09/23 6:17 PM) 158 cm (10/09/23 5:55 PM) Weight 61.5 kg (10/10/23 2:30 PM) 61.5 kg (10/09/23 6:17 PM) 61.5 kg (10/09/23 5:55 PM) Oxygen Saturation [94-100 %] 97 % (10/10/23 2:30 PM) 95 % (10/10/23 3:38 AM) 95 % (10/09/23 5:55 PM) Pulse Rate [55-90 bpm] 64 bpm (10/10/23 2:30 PM) 83 bpm (10/10/23 3:38 AM) 79 bpm (10/09/23 5:55 PM) Body Mass Index [18.5-24.99 kg/m2] 24.64 kg/m2 (10/09/23 5:55 PM) Blood Pressure [90-138/55-84 mm Hg] 93/48mm Hg (10/10/23 2:30 PM) 109/50mm Hg (10/10/23 3:38 AM) 112/65mm Hg (10/09/23 5:55 PM) Respiratory Rate [16-30 br/min] 15 br/min *L* (10/10/23 2:30 PM) 15 br/min *L* (10/10/23 9:16 AM) 16 br/min (10/10/23 8:16 AM) Temperature [96.8-100.4 DegF] 98.8 DegF (10/10/23 2:30 PM) 98.7 DegF (10/10/23 3:38 AM) 99.0 DegF (10/09/23 5:55 PM) Mode of Delivery (Oxygen) Room air (10/10/23 2:30 PM) Room air (10/10/23 3:38 AM) Room air (10/09/23 5:55 PM) Blood pressure sites Arm, left (10/09/23 5:55 PM) Temperature Route Oral (10/10/23 2:30 PM) Oral (10/10/23 3:38 AM) Oral (10/09/23 5:55 PM) Dry Weight 61.5 kg (10/10/23 2:30 PM) 61.5 kg (10/09/23 6:17 PM) 61.5 kg (10/09/23 5:55 PM) Weight Obtained Via Patient/family state d (10/09/23 5:55 PM) Dry Weight Obtained Via Patient/family s tated (10/09/23 5:55 PM) Social History Social History Type Response Tobacco Use: 4 or less cigar ettes(less than 1/4 pack)/day in last 30 days. Sex Hospital Progress note * Event Display: Progress Note Hospital Authored Date: Patient Care team information Care Team Personnel Name: Bj Rivera MD Position: [facility] Physician - Gastroenterology Member Role: Lifetime Consulting Physician Address: Address: [address] [place] [address], [address] [facility] [place], [place] [address] Name: Aimee Pereira RN Position: S RN Member Role: Primary Care Nurse Name: Elmira Bright RN Position: S RN Member Role: Primary Care Nurse Name: Mariano Perez Position: S RN Member Role: Primary Care Nurse Name: Jeanna Barclay RN Position: [facility] RN Member Role: Primary Care Nurse Name: Elba Castillo RN Position: [facility] RN Member Role: Primary Care Nurse Name: Janett Dean RN Position: [facility] SN RN Member Role: Primary Care Nurse Name: Isabella Merlos RN Position: [facility] RN Member Role: Primary Care Nurse Name: Shikha Villafana RN Position: [facility] RN Member Role: Primary Care Nurse Name: Luke Russell RN Position: [facility] RN Member Role: Primary Care Nurse Name: Virgil Campos RN Position: [facility] RN Member Role: Primary Care Nurse Name: Ishaan Burton Jr, RN Position: [facility] RN Member Role: Primary Care Nurse Name: Niki Larkin RN Position: [facility] RN Member Role: Primary Care Nurse Name: Clare Romano RN Position: [facility] RN Member Role: Primary Care Nurse Name: Cliff Mo RN Position: [facility] RN Member Role: Primary Care Nurse Name: Goldy Lamar Position: [facility] RN Member Role: Primary Care Nurse Name: Katina Kelly RN Position: [facility] RN Member Role: Primary Care Nurse Name: Nesha Browne Position: [facility] RN Member Role: Primary Care Nurse Name: Jonh Melgar MD Position: [facility] Physician - Primary Care Member Role: Lifetime Consulting Physician Address: Address: [address] [place] [address] Name: Anibal Peace RN Position: [facility] RN Member Role: Primary Care Nurse Name: Colleen Leal RN Position: [facility] RN Member Role: Primary Care Nurse Name: Davonte Rosario RN Position: [facility] RN Member Role: Primary Care Nurse Name: Kristal Hay RN Position: [facility] RN Member Role: Primary Care Nurse Name: Walker Rey RN Position: [facility] RN Member Role: Primary Care Nurse Name: Not on Staff, PCP Position: [facility] Physician (General Medicine) Member Role: PCP Name: Tracy Chaparro RN Position: [facility] RN Member Role: Primary Care Nurse Name: Kemal Pulido MD Position: [facility] Renal MD Member Role: Lifetime Consulting Physician Address: Address: [address] [place] [address] [address] [facility] [place], [place] [address]- Name: Mariam Melendrez RN Position: S RN Member Role: Primary Care Nurse Name: Leticia Lobato RN Position: S RN Member Role: Primary Care Nurse Name: Emma Martin RN Position: S RN Member Role: Primary Care Nurse Name: Kyle Lui RN Position: S RN Member Role: Primary Care Nurse Name: Jessie Ann RN Position: S RN Member Role: Primary Care Nurse Name: Purvi Rivera RN Position: S RN Member Role: Primary Care Nurse Name: Naina Peng RN Position: [facility] RN Member Role: Primary Care Nurse Name: Dimas Vazquez RN Position: [facility] ED RN W/OE and Tasks Member Role: Primary Care Nurse Name: Tyson Blum MD Position: [facility] Renal MD Member Role: Lifetime Consulting Physician Address: Address: [address] [place] [address] [facility] [address] Name: Emma Hardy RN Position: [facility] RN Member Role: Primary Care Nurse Name: Blanca Rai RN Position: [facility] RN Member Role: Primary Care Nurse Name: Janell Gomez RN Position: S RN Member Role: Primary Care Nurse Name: Orlando Conn RN Position: S RN Member Role: Primary Care Nurse Care Team Related Persons Name: LUIS F ROBERTS Address: [address] [address] Name: DEV MCDONNELL
--- OUTSIDE RECORDS SUMMARY | 2023-11-20 18:03 | XMS_ITS | Continuity of Care Document ---
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 Address: [address] [place] [address] [facility] [address] Name: Emma Hardy RN Position: [facility] RN Member Role: Primary Care Nurse Name: Blanca Rai RN Position: [facility] RN Member Role: Primary Care Nurse Name: Janell Gomez RN Position: [facility] RN Member Role: Primary Care Nurse Name: Orlando Conn RN Position: [facility] RN Member Role: Primary Care Nurse Care Team Related Persons Name: LUIS F ROBERTS Address: [place] [address] Name: EDV MCDONNELL
--- OUTSIDE RECORDS SUMMARY | 2023-11-20 18:03 | XMS_ITS | Continuity of Care Document ---
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 further evaluation and treatment of??alcoholic liver cirrhosis,??UTI,??possible??hepatic encephalopathy Review of Systems Constitutional: No fever, increased sleepiness HEENT: No visual loss, blurred vision, double vision or yellow sclera. No runny nose or sore throat. Cardiovascular: No chest pain, palpitations or pedal edema. Respiratory: No shortness of breath, cough or sputum production. Gastrointestinal: No nausea, vomiting or diarrhea. No abdominal pain.?? Neurologic: No headache, dizziness, unilateral weakness, numbness or tingling in the extremities. Objective Measurements?? Height: 158 cm (05/12/22) Weight: 74.9 kg (05/12/22) Dry Weight: 74.9 kg (05/12/22) Body Mass Index:??30 kg/m2??Critical (05/12/22) ? Vital Signs?? Temperature: 97.4 DegF (05/12/22 15:27:00) Temperature Route: Oral (05/12/22 15:27:00) Pulse Rate: 82 bpm (05/12/22 15:27:00) Respiratory Rate: 19 br/min (05/12/22 15:27:00) Systolic Blood Pressure: 112 mm Hg (05/12/22 15:27:00) Diastolic Blood Pressure: 66 mm Hg (05/12/22 15:27:00) Blood pressure sites: Arm, left (05/12/22 15:27:00) Mean Arterial Pressure: 81 mm Hg (05/12/22 15:27:00) Pulse Pressure: 46 mm Hg (05/12/22 15:27:00) Oxygen Saturation: 99 % (05/12/22 15:27:00) Mode of Delivery (Oxygen): Room air (05/12/22 15:27:00) Early Warning Score:??11??Critical (05/12/22 15:27:57) ? Intake/Output? 05/11 20:09 05/12 07:00 05/11 07:00 05/10 07:00 05/09 07:00 ?? 05/12 16:11 05/12 16:11 05/12 06:59 05/11 06:59 05/10 06:59 Intake ?0 ?0 ?0 ?0 ?0 Output ?400 ?400 ?0 ?0 ?0 Net Total ? -400 ? -400 ?0 ?0 ?0 ? Precautions No Precautions documented.? Mobility & Ambulation Level Mobility & Ambulation Level?? No qualifying data available. ? Physical Exam General: Alert Mental Status: Oriented to person, place and time. Head: Normocephalic. Neck: Supple Respiratory: Clear to auscultation and percussion. No wheezing, rales or rhonchi. Cardiovascular: Heart sounds normal. No thrills. Regular rate and rhythm, no murmurs, rubs or gallops. Gastrointestinal: Abdomen soft, non-tender, non-distended. Normal bowel sounds.?Asterixis??present Neurologic: Cranial nerves II-XII grossly intact. No focal neurological deficits. Sensation intact bilaterally. Skin: No rashes or lesions.?? Musculoskeletal: No cyanosis Assessment/Plan Diagnoses Abdominal pain ??(R10.9) ?? Assessment:??41-year-old lady with past medical history of alcoholic cirrhosis of liver, last drinkwas 2 years ago, prior history of UTI, obstructive uropathy, prior history of viridans bacteremia presented to [facility] with abdominal pain, altered mental status. At home the patient was found to be altered and complained of abdominal pain. She had lower abdominal pain for the past 2 days. Patient also complains of dysuria and urinary frequency. The patient had a does have history of left-sided renal stones. She denies having any fever or chills or vomiting. According to patient, lastdrink was 2 years ago. The patient is being admitted to hospital for further evaluation and treatment of alcoholic liver cirrhosis, UTI, possible hepatic encephalopathy ? 1.?Hepatic encephalopathy: Alcoholic liver cirrhosis: Patient has significant history of alcoholic??liver cirrhosis She has a history of??excess alcohol use in the past but states that she quit alcohol??2 years ago Patient has??bilateral asterixis of upper extremities I have ordered ammonia level to be checked We will give lactulose??30 mL 4 times a day The aim is??for the patient to have??4-5??70 loose stools per day No ascites Patient is on??oral Lasix 40 mg daily ? 2.?History of alcohol abuse: Patient states that she quit alcohol 2 years ago I??advised the patient??to be off alcohol??under supervision of PCP ? 3.?History of recurrent UTIs: History of obstructive uropathy Afebrile Urine analysis is grossly??abnormal Patient has a history of UTIs I started the patient on IV ceftriaxone??for 3 days ? 4.? Methadone dose: Patient says that she takes??methadone??24 mg??daily??from [facility] in [place], [place]??but it isclosed now I will prescribe 1 dose of methadone 24 mg??for today Tomorrow morning attending??can confirm the dose from [facility]??tomorrow ? 5.? DVT prophylaxis: Subcu heparin Diet: Regular diet CODE STATUS: Full code ? I have discussed the above plan with the patient at bedside who is in agreement. ? Discharge Planning:? Histories Allergies Allergies ?(Active and [...] 2009 D&C: 2007 delivery only;: 2002 appendectomy: 1991 ? Social History Alcohol Details:??Use: Past. Substance Abuse Details:??Use: Past. ??Type: Heroin. Tobacco Details:??Use: 4 or less cigarettes(less than 1/4 pack)/day in last 30 days. ? Psychosocial History ? Family History Father: Cancer of colon Mat. Grandmother: Cancer of lung ? Medications Home Medications Cyclobenzaprine (cyclobenzaprine 10 mg oral tablet)?10?Milligram?1?tablet?By Mouth?Daily at bedtime?as needed?Spasm Furosemide (Lasix 40 mg oral tablet)?40?Milligram?1?tablet?By Mouth?Daily?for 30?Days Gabapentin (gabapentin 600 mg oral tablet)?1?tab(s)?600?Milligram?By Mouth?2 times a day Lactulose (lactulose 10 gm/15 ml oral syrup)?30?Milliliter?20?gram?By Mouth?4 times a day?for 14?Days Methadone?24?Milligram?By Mouth?Daily Ondansetron (Zofran 4 mg oral tablet)?1?tab(s)?4?Milligram?By Mouth?Every 8 hours?as needed?as needed for nausea/vomiting Spironolactone (spironolactone 100 mg oral tablet)?100?Milligram?1?tablet?By Mouth?Daily?for 30?Days ? Inpatient Medications Medications (18) Active SCHEDULED: (8) Ceftriaxone 1 Gm Inj (Ceftriaxone Inj) ??1 Gm, IVPB, Every 24 hours Furosemide 40 mg Tablet (Lasix 40 mg oral tablet) ??40 mg, By Mouth, Daily Gabapentin 300 mg Capsule (gabapentin 300 mg oral capsule) ??600 mg, By Mouth, 2 times a day Lactulose 20 Gm/30mL Syrup (lactulose 10 gm/15 ml oral syrup) ??20 Gm 30 mL, By Mouth, 4 times a day Methadone 30mg/15mL UD Solution (Methadone Liquid) ??24 mg 12 mL, By Mouth, Daily NaCl 0.9% Flush 3ml (NaCL 0.9% Flush) ??3 mL, IV Push, Every 8 hours NaCl 0.9% Flush 3ml (NaCL 0.9% Flush) ??3 mL, IV Push, Every 8 hours Spironolactone 100 mg Tablet (spironolactone 100 mg oral tablet) ??100 mg, By Mouth, Daily CONTINUOUS: (0) PRN: (10) Acetaminophen 325 mg Tablet (Acetaminophen Tablet) ??650 mg, By Mouth, Every 4 hours Bisacodyl 10 mg Suppository (Dulcolax Supp) ??10 mg 1 supp, Rectally, Once Cyclobenzaprine 10 mg Tablet (cyclobenzaprine 10 mg oral tablet) ??10 mg, By Mouth, Daily at bedtime Dextromethorphan-Guaifenesin 20 mg-200 mg/10 mL Liqu UD (Robitussin DM Liquid) ??10 mL, By Mouth, Every 4 hours Melatonin 3 mg Tablet (Melatonin Tablet) ??3 mg, By Mouth, Daily at bedtime NaCl 0.9% Flush 3ml (NaCL 0.9% Flush) ??3 mL, IV Push, Every 8 hours Ondansetron 2mg/mL Inj (2mL Vial) (Ondansetron Inj) ??4 mg, IV Push, Every 6 hours Polyethylene Glycol 17 Gm Powder (MiraLax Powder) ??17 Gm 1 pack/packet, By Mouth, Daily Senna 8.6 mg / Docusate 50 mg tablet (Docusate/Senna Tablet) ??1 tablet, By Mouth, 2 times a day Simethicone 80 mg Chewable Tablet (Simethicone Tablet) ??80 mg, Chew, 3 times a day ? Results Recent Labs BLOOD COUNT & DIFF WBC 2.7 k/mm3 (Low)?? 05/11/2022 20:51 RBC 2.83 m/mm3 (Low)?? 05/11/2022 20:51 Hgb 8.5 Gm/dL (Low)?? 05/11/2022 20:51 Hct 26.5 % (Low)?? 05/11/2022 20:51 MCV 93.6 femtoliters ()?? 05/11/2022 20:51 MCH 30.0 pg ()?? 05/11/2022 20:51 MCHC 32.1 g/dL (Low)?? 05/11/2022 20:51 Platelet Count 76 k/mm3 (Low)?? 05/11/2022 20:51 RDW-SD 57.1 femtoliters (High)?? 05/11/2022 20:51 MPV 11.4 femtoliters ()?? 05/11/2022 20:51 Nucleated RBC (Automated) 0.0 #/100 WBC'S ()?? 05/11/2022 20:51 Abs. NRBC 0.0 k/mm3 ()?? 05/11/2022 20:51 Abs. Neut 1.2 k/mm3 (Low)?? 05/11/2022 20:51 Abs. Lymph 1.0 k/mm3 ()?? 05/11/2022 20:51 Abs. Fannin 0.3 k/mm3 (Low)?? 05/11/2022 20:51 Abs. Eo 0.1 k/mm3 ()?? 05/11/2022 20:51 Abs. Baso 0.0 k/mm3 ()?? 05/11/2022 20:51 Neut % 45.6 % ()?? 05/11/2022 20:51 Lymph % 36.6 % ()?? 05/11/2022 20:51 Fannin % 12.1 % (High)?? 05/11/2022 20:51 Eos % 5.3 % ()?? 05/11/2022 20:51 Baso % 0.4 % ()?? 05/11/2022 20:51 Imm Gran 0.0 % ()?? 05/11/2022 20:51 Abs. Imm Gran 0.0 k/mm3 ()?? 05/11/2022 20:51 ?? CARDIAC Troponin T Quant <0.01 ng/mL ()?? 05/11/2022 20:51 ?? CHEM GENERAL Sodium 141 mmol/L ()?? 05/11/2022 20:51 Potassium 3.7 mmol/L ()?? 05/11/2022 20:51 Chloride 107 mmol/L ()?? 05/11/2022 20:51 Bicarbonate Level 29 mmol/L ()?? 05/11/2022 20:51 Anion Gap 5 ()?? 05/11/2022 20:51 Glucose Level 100 mg/dL (High)?? 05/11/2022 20:51 BUN 10 mg/dL ()?? 05/11/2022 20:51 Creatinine-Blood 0.7 mg/dL ()?? 05/11/2022 20:51 Estimated GFR Creatinine 113 ML/MIN/1.73 M2 ()?? 05/11/2022 20:51 Calcium 8.2 mg/dL (Low)?? 05/11/2022 20:51 Calcium, Ionized pH Corrected 1.20 mmol/L ()?? 05/11/2022 20:51 Magnesium 1.8 mg/dL ()?? 05/11/2022 20:51 Protein, Total 4.9 Gm/dL (Low)?? 05/11/2022 20:51 Albumin 2.5 Gm/dL (Low)?? 05/11/2022 20:51 AG Ratio 1.0 ()?? 05/11/2022 20:51 Alkaline Phosphatase 185 units/L (High)?? 05/11/2022 20:51 Lipase 31 units/L ()?? 05/11/2022 20:51 AST (SGOT) 59 units/L (High)?? 05/11/2022 20:51 ALT (SGPT) 30 units/L ()?? 05/11/2022 20:51 Bilirubin, Total 2.2 mg/dL (High)?? 05/11/2022 20:51 Lactate 1.4 mmol/L ()?? 05/11/2022 20:51 ?? COAG INR 1.7 (High)?? 05/11/2022 20:51 Protime (PT) 17.5 seconds (High)?? 05/11/2022 20:51 APTT 41.7 seconds (High)?? 05/11/2022 20:51 ?? ENDOCRINE/TUMOR MARKER TSH 1.47 uIU/mL ()?? 05/11/2022 20:51 Serum Qual NEGATIVE mIU/mL ()?? 05/11/2022 20:51 ?? UA/URINALYSIS Appear/Color, Urine RED ()?? 05/12/2022 10:30 Specific [place], Urine >1.050 (High)?? 05/12/2022 10:30 pH, Urine 6.5 ()?? 05/12/2022 10:30 Albumin, Urine 2+ (Abnormal)?? 05/12/2022 10:30 Glucose, Urine NEGATIVE (N)?? 05/12/2022 10:30 Ketones, Urine NEGATIVE (N)?? 05/12/2022 10:30 Bilirubin, Urine NEGATIVE (N)?? 05/12/2022 10:30 Hemoglobin, Urine 3+ (Abnormal)?? 05/12/2022 10:30 Nitrite, Urine NEGATIVE (N)?? 05/12/2022 10:30 Leukocyte, Urine 3+ (Abnormal)?? 05/12/2022 10:30 Urobilinogen 2 mg/dL (Abnormal)?? 05/12/2022 10:30 WBC's, Urine >182 /HPF (High)?? 05/12/2022 10:30 RBC's, Urine >182 /HPF (High)?? 05/12/2022 10:30 Bacteria SLIGHT HPF (Abnormal)?? 05/12/2022 10:30 Squamous Epith 6 /HPF ()?? 05/12/2022 10:30 Mucus SLIGHT /LPF ()?? 05/12/2022 10:30 Hold Urine Culture Testing available 48 hours from time of collection. ()?? 05/12/2022 10:30 ?? VIROLOGY COVID-19 by RT-PCR NEGATIVE ()?? 05/12/2022 01:04 ? EKG study * Event Display: ECG 12-Lead Authored Date: Please click on pdf link to open report * Event Display: ECG 12-Lead Authored Date: Ventricular Rate: 78 BPM Atrial Rate: 78 BPM P-R Interval: 136 ms QRS Duration: 94 ms Q-T Interval: 432 ms QTC Calculation(Bazett): 492 ms P Potter: 2 degrees R Potter: 29 degrees T Potter: 28 degrees Normal sinus rhythm Prolonged QT Abnormal ECG When compared with ECG of 20-FEB-2022 11:43, No significant change was found Confirmed by SINTIA FERNANDEZ [facility] ([id number]) on 05/12/2022 7:42:06 AM [place]: [facility] * Emma Hardy RN: PERFORM, SIGN, VERIFY Event Display: [facility] Authored Date: Patient: YUDI CALDERON Age: 41 years Sex: Female : 1980 Associated Diagnoses: None Author: Emma Hardy RN Findings Problem Related to Alteration in Gastrointestinal : Alteration in Gastrointestinal Func/new 05/15/2022 7:00 EST Alteration in GI status Related to Other: abdominal pain Goals & Outcomes, Gastrointestinal Establish a regular [...] tolerate age appropriate diet prior to discharge, Resolved problem, Goals/Outcomes met Interventions, Gastrointestinal Assess/monitor abdomen for distention, tenderness, Assess/monitor abdominal girth & bowel function, Assess/monitor bowel pattern, bowel sounds, flatus BH Goals/Interventions, Gastrointestinal Yes Gastrointestinal, Problem Start 05/12/2022 6:00 Reviewed plan with, Gastrointestinal Patient Patient Progression, Gastrointestinal Pt progressing according to plan . Narrative/Incidental Pt A&Ox3, vital signs stable, CMS WNL. Pt denies pain, nausea/vomiting, shortness of breath or chest pain. +PP with no edema, pt ambulating with a steady gait. Lungs CTA, IS use encouraged. Abdomen soft round nontender with +BSx4. pt tolerating diet well and voiding clear yellow urine. skin intact. pt resting up to chair, call delatorre within reach, pt able to make needs known. . Discharge Information Rehabilitation Discharge : Rehab Discharge Index 05/14/2022 8:59 EST Comments on treatment indicated 41 y/o female p/w abdominal pain and altered mental status, found to have a small bowel obstruction, treated conservatively, and hepatic encephalopathy. See for transfers, gait, stairs, therex and balance. Rehab vs home Walker: distance 20-50 Distance pt will ambulate ~100' with RW and good balance Full chart review completed Yes Hospital course per medical chart Plan of care PT Gait training, Transfer training, Therapeutic exercise, Functional Activities, Balance training * Anibal Peace RN: PERFORM, SIGN, VERIFY Event Display: Progress Note Hospital Authored Date: [id number] Patient: YUDI CALDERON Age: 41 years Sex: Female : 1980 Associated Diagnoses: None Author: Anibal Peace RN Findings Problem Related to Alteration in Neurological : Alteration in Neurological Function/new 05/14/2022 21:00 EST Alteration in Neuro status Related to Other: AMS hepatic encepalopathy Goals & Outcomes, Neurological Lab studies/diagnostic tests within pt specific limits, Pt is safe with transfers & activities, Pt will be discharged without infection, Pt will be hemodynamically stable, Pt will be Neurologically stable, Pt will become pain free with appropriate intervention, Pt will maintain intact skin integrity, Pt will remain free from injury, Pt will resume/maintain ad equate cardiac output, Pt will state importance of adhering to medication regime, Pt/caregiver willreceive psychosocial support as needed, Pt/caregiver will state understanding of rehab plan, Pt/caregiver will state strategies to reduce risk factors, Pt/caregiver will state understanding aspiration precautions, Pt/caregiver will state understanding dietary modifications, Pt/caregiver will state understanding of disease process, Pt/caregiver will state understanding of plan/goals of care, Pt/caregiver will state understanding of the D/C plan Interventions, Neurological Assess/monitor neurologic status, Assess/monitor VS per unit standards & prn, Maintain normothermia, report temp >101.5 F, Monitor for headaches, nausea, vomiting, Monitor speech fluency, aphasia, word finding difficulty, Teach & encourage deep breath & cough exercises, Teach and encourage use of Incentive spirometer, Teach pt/caregiver discharge plan & follow up care, Teach pt/caregiver on plan of care, treatment, s/s & meds, Teach pt/caregiver on use of pain scale BH Goals/Interventions, Neurological Yes Neurological, Problem Start 05/14/2022 16:09 Reviewed plan with, Neurological Patient Patient Progression, Neurological Pt progressing according to plan . Nursing Data Vital Signs : VITAL SIGNS SECTION 05/14/2022 23:00 EST Temperature 98.0 DegF Temperature Route Oral Pulse Rate 89 bpm Respiratory Rate 18 br/min Systolic Blood Pressure 128 mm Hg Diastolic Blood Pressure 72 mm Hg Blood pressure sites Arm, left Oxygen Saturation 100 % Mode of Delivery (Oxygen) Room air . Narrative/Incidental Pt awake confused, flexeril given for spasm, abdomen soft distended, tender, having loose stools tonight, ambulate to the bathroom with unsteady gait bed alarm in place for safety, denies nausea or vomiting tolerating low fiber diet, taking PO fluids, voiding CYU, LSC, no SOB, not in respiratory distress, denies chest pain, VS stable, no other complaints, cared for & will continue to monitor,call delatorre within reach.. Discharge Information Rehabilitation Discharge : Rehab Discharge Index 05/14/2022 8:59 EST Comments on treatment indicated 41 y/o female p/w abdominal pain and altered mental status, found to have a small bowel obstruction, treated conservatively, and hepatic encephalopathy. See for transfers, gait, stairs, therex and balance. Rehab vs home Walker: distance 20-50 Distance pt will ambulate ~100' with RW and good balance Full chart review completed Yes Hospital course per medical chart Plan of care PT Gait training, Transfer training, Therapeutic exercise, Functional Activities, Balance training * Stiven FERNANDEZ, Noor: PERFORM Event Display: Progress Note Hospital Authored Date: Patient: ??CALDERON, CRYSTAL ? Age:??41 Years?Sex:??Female?:??1980?? Subjective No acute issues overnight. -Methadone dose was confirmed??with outpatient??clinic??and she takes 24??mg??daily methadone. -LFTs??mildly improved but ammonia level elevated to 114. -Patient looks drowsy??although awake and able to comprehend questions well. -Abdomen distended, getting??ultrasound??for ascites: Pending ultrasound. ??If positive then??will get paracentesis done. -Continue lactulose??45 mL??4 times a day.?Last bowel movement yesterday??as documented. -If she does not improve clinically might need GI consult.. Review of Systems A full review of systems was completed and is otherwise negative except as mentioned in history of present illness. Objective ?? Intake/Output? 05/11 20:09 05/14 07:00 05/13 07:00 05/12 07:00 05/11 07:00 ?? 05/14 16:21 05/14 16:21 05/14 06:59 05/13 06:59 05/12 06:59 Intake ? 1180 ?0 ?940 ?240 ?0 Output ? 3000 ?475 ? 2000 ?525 ?0 Net Total ?-1820 ? -475 ?-1060 ? -285 ?0 ? Urine Count ?4 ?2 ?0 ?2 ?0 ? Physical Exam Respiratory: easy respiratory effort, lungs are clear to auscultation Cardiac: S1S2, heart rate regular, no murmurs/heaves/rubs/gallops Abdomen round, soft, non-tender, +bowel sounds x4 quadrants, distended. Extremities: without edema, no asterixis Pulses: radial and pedal bilaterally +2 Results Reviewed Assessment/Plan ??Diagnoses Abdominal pain ??(R10.9) Hepatic encephalopathy ??(K72.90) Polysubstance abuse ??(F19.10) Small bowel obstruction ??(K56.609) Urinary tract infection ??(N39.0) ?? Small bowel obstruction (K56.609):? Abdominal pain (R10.9):?? Patient??has been managed conservatively She has been evaluated by the surgical team with adequate bowel movements and no longer having abdominal pain, no surgical interventions planned at this time. They recommend advancing her diet as tolerated which we will do this afternoon. The patient is verygrateful ?? Hepatic encephalopathy (K72.90):??Ongoing Continue lactulose Repeat??venous??ammonia level??in the morning Continue otherwise??her??Lasix??and Aldactone to treat her underlying liver disease ??LFTs??mildly improved but ammonia level elevated to 114. -Patient looks drowsy??although awake and able to comprehend questions well. -Abdomen distended, getting??ultrasound??for ascites: Pending ultrasound. ??If positive then??will get paracentesis done. -Continue lactulose??45 mL??4 times a day.?Last bowel movement yesterday??as documented. -If she does not improve clinically might need GI consult.. ?? Polysubstance abuse (F19.10):?? The patient??takes methadone??reportedly 24 mg daily. Methadone dose was confirmed??with outpatient??clinic??and she takes 24??mg??daily methadone ? Urinary tract infection (N39.0):?? The patient has a history of UTIs with abnormal urinalysis Her admission plan was to treat with IV ceftriaxone for 3 days. Today is day 3.? VTE Prophylaxis:??Compression boots Code Status:??Full??code Ongoing Medical Necessity:??IV antibiotics,??follow??ammonia level??with lactulose??administration ?? Note * Emma Hardy RN: PERFORM Event Display: Discharge/Transfer Note Hospital Authored Date: Nursing Discharge Note Entered On: 05/15/2022 15:37 EST Performed On: 05/15/2022 15:36 EST by Emma Hardy RN Nursing Discharge Note 2 Discharge Time : 05/15/2022 15:36 EST Discharge Level of Care at Discharge : Home/Halfway/Foster Care Patient Left Unit Via : Wheelchair Patient Accompanied Off Unit with : Responsible adult DC Instructions Provided & Signed by Pt : Yes Patient Understands D/C Instructions : Yes Patient Instructions Discharge Signed : Yes Did Pt have Specialty Bed or Wound Vac : No Emma Hardy RN - 05/15/2022 15:36 EST * Rnadi La MD: PERFORM Event Display: Discharge/Transfer Note Hospital Authored Date: [id number] Patient: ??CALDERON, CRYSTAL ? Age:??41 Years?Sex:??Female?:??1980?? Patient Information [facility]charge [facility]: [facility] Primary Care Physician: Not on Staff, PCP Admit Date/Time: 05/11/22 20:09 Discharge Disposition Discharge Disposition: Home: No Services Discharge Diagnosis Hepatic encephalopathy (K72.90) Polysubstance abuse (F19.10) Small bowel obstruction (K56.609) Urinary tract infection (N39.0) Cirrhosis ?? _ Discharge Medications Cephalexin (cephalexin monohydrate 500 mg oral capsule)?1?capsule?500?Milligram?By Mouth?4 times a day?for 3?Days Cyclobenzaprine (cyclobenzaprine 10 mg oral tablet)?10?Milligram?1?tablet?By Mouth?Daily at bedtime?as needed?Spasm Furosemide (Lasix 40 mg oral tablet)?40?Milligram?1?tablet?By Mouth?Daily?for 30?Days Gabapentin (gabapentin 600 mg oral tablet)?1?tab(s)?600?Milligram?By Mouth?2 times a day Lactulose (lactulose 10 gm/15 ml oral syrup)?30?Milliliter?20?gram?By Mouth?4 times a day?for 14?Days Methadone?24?Milligram?By Mouth?Daily Ondansetron (Zofran 4 mg oral tablet)?1?tab(s)?4?Milligram?By Mouth?Every 8 hours?as needed?as needed for nausea/vomiting Spironolactone (spironolactone 100 mg oral tablet)?100?Milligram?1?tablet?By Mouth?Daily?for 30?Days ? Durable Medical Equipment Discharge recommendations: Rehab (05/14/22) Ambulatory devices needed: None (05/13/22) ? Medications Started cephalexin Medications Discontinued none Doses Changed none Allergies Allergies ?(Active and Proposed Allergies Only) Egg Allergy? (Severity: Unknown severity, Onset: Unknown) ? Future Appointments 2022 1:15 PM EST ?? With: Catalina FERNANDEZ, Teja Melendez Where: [facility] [address] [place] [address]- Objective Assessment and Plan Assessment:??Abdominal pain (R10.9) ??Hepatic encephalopathy (K72.90) ??Polysubstance abuse (F19.10) ??Small bowel obstruction (K56.609) ??Urinary tract infection (N39.0) ? Small bowel obstruction (K56.609): resolved Abdominal pain (R10.9): resolved seen by surgery, no intervention, diet advanced, tolerated well,? Hepatic encephalopathy (K72.90):??resolved Cirrhosis s/p TIPS A&Ox 3 at the time of discharge 3-4 BM per day now, discharged on lactulose and reinforced importance of compliance. cont with Lasix and aldactone US abdomen -ve for ascites. ? Polysubstance abuse (F19.10): takes methadone 24 mg daily which was confirmed with outpt clinic. last dose on 05/15 at 10:00 am in the hospital.? Urinary tract infection (N39.0): UA ~ pyuria started on ceftriaxone inpt, discharged on cephalexin for total of 5 days course. ?PT eval home ? Vital Signs?? Temperature: 97.4 DegF (05/15/22 12:09:00) Temperature Route: Oral (05/15/22 12:09:00) Pulse Rate:??94 bpm??High (05/15/22 12:09:00) Respiratory Rate: 20 br/min (05/15/22 12:09:00) Systolic Blood Pressure: 129 mm Hg (05/15/22 12:09:00) Diastolic Blood Pressure: 73 mm Hg (05/15/22 12:09:00) Blood pressure sites: Arm, right (05/15/22 12:09:00) Mean Arterial Pressure: 92 mm Hg (05/15/22 12:09:00) Pulse Pressure: 56 mm Hg (05/15/22 12:09:00) Oxygen Saturation: 100 % (05/15/22 12:09:00) Mode of Delivery (Oxygen): Room air (05/15/22 12:09:00) Early Warning Score:??11??Critical (05/15/22 12:10:02) ? . Physical Exam A&Ox 3, somewhat slow to respond, which is her baseline lungs CTAB abdomen soft non tender ambulating well heart RRR Pending Results Add On Lab Order ordered on 05/14/2022 Hold Lavender Tube (BB) ordered on 05/11/2022 INR ordered on 05/12/2022 Patient Education Titles Urinary Tract Infections in Women?? Understanding Hepatic Encephalopathy (HE)?? Follow-Up Appointments Added Follow Up ?Time Frame ?Comments PCP Not on Staff Post Discharge Care Discharge ?05/15/22 14:09:00 EST Discharge Prescriptions ?ePrescribed, ??05/15/22 14:09:00 EST Home Health Face to Face ^HomeHealthFTF Results Discharge Labs BLOOD COUNT & DIFF WBC 2.9 k/mm3 (Low)?? 05/15/2022 00:26 RBC 2.87 m/mm3 (Low)?? 05/15/2022 00:26 Hgb 8.7 Gm/dL (Low)?? 05/15/2022 00:26 Hct 26.3 % (Low)?? 05/15/2022 00:26 MCV 91.6 femtoliters ()?? 05/15/2022 00:26 MCH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 FINDINGS: LINES AND TUBES: None. LUNGS AND PLEURA: Diffuse increased hazy opacity throughout both lungs. No pleural effusion. No pneumothorax. HEART, MEDIASTINUM AND HERMINIA: Heart is normal in size. Normal mediastinal and hilar contour. BONES AND SOFT TISSUES: No acute abnormality. IMPRESSION: Multifocal pneumonia versus volume overload. WSN: [id number] Ordering Physician: Femi Berg Dictated By: Nisreen Yo MD Dictated Date/Time: 05/12/22 7:25 am Reviewed By: Nisreen Yo MD Signed By: Nisreen Yo MD Signed Date/Time: 05/12/22 7:25 am Transcribed By: TATE Transcribed Date/Time: 05/12/22 7:[address] Abdomen and Pelvis W contrast IV * [facility] , CIS S: TRANSCRIBE Julian Rogers MD: VERIFY Event Display: Result: Authored Date: [id number] CT Abd/Pelvis W/ IV Contrast Only Hx of Present Illness: pt complains of abdominal pain in care home. Pt has history of cirrosis; Reason: Pain; Clinical Question(s): Appendicitis; Order Comment: TECHNIQUE: Spiral CT through the abdomen and pelvis with IV contrast formatted in 3 planes. 100 cc of Omnipaque 350 was administered intravenously. This study was performed without oral contrast. Weight-based protocol using automatic tube modulation was used to optimize exposure parameters. CTDIvol Body: 10.70 mGy, DLP Body: 607 mGy*cm. COMPARISON: 03/22/2022 CT of the abdomen and pelvis. FINDINGS: Is Manager View Findings, Lines and Tubes: None. Visualized Chest: Motion degraded. Mild dependent atelectasis. No pleural effusion. Normal heart size. No pericardial effusion. Diaphragm: Normal. Liver: Normal. TIPS is in place. Gallbladder: No CT evidence of gallbladder pathology. Bile ducts: No biliary ductal dilation. Spleen: The spleen is enlarged measuring 15.6 cm. Pancreas: Normal. Adrenal glands: Normal. Kidneys and ureters: Normal right kidney. Moderate left-sided hydronephrosis. A left-sided nephroureteral stent is in place with the superior portion coiling in the left renal pelvis, and inferior portion terminating within the bladder no calculi are seen. Bladder: Mildly thick-walled, which could be in part related to underdistention, similar to prior study. No surrounding inflammatory changes. Reproductive organs: Multiple simple cysts within the right ovary measuring up to 4.1 cm, previously evaluated with ultrasound. Simple cyst within the left ovary measuring up to 2.0 cm. Stomach, small bowel, and large bowel: The stomach is normal. There is a mildly dilated loop of small bowel within the right mid abdomen measuring up to 3.7 cm, that contains fecal material. Completely decompressed small bowel loops are noted within the right mid abdomen and right lower quadrant leading up to the terminal ileum. There is a relatively abrupt transition point in the right upper quadrant (image 47 series 603, and image 57 series 601). Findings suggest at least a partial bowel obstruction. The colon contains a large amount of stool. The rectum is normal. Appendix: Not seen, but no evidence of appendicitis. Peritoneum and retroperitoneum: No ascites or pneumoperitoneum. No omental or mesenteric lesions. Lymph nodes: No enlarged lymph nodes. Blood vessels: Normal. No aneurysm. No evidence of venous thrombosis. Abdominal and pelvic wall: Mild induration of the subcutaneous fat throughout the abdomen, similar to prior study. Bones: No acute abnormality. Moderate degenerative changes at L5-S1. IMPRESSION: 1. Mildly dilated loop of small bowel within the right mid abdomen contains fecalized material and demonstrates a relatively abrupt transition to completely decompressed small bowel loops in the right mid lower abdomen suggesting at least a partial bowel obstruction. 2. Moderate left-sided hydronephrosis with nephroureteral stent in place and in appropriate position. 3. Cirrhotic liver, with findings of portal hypertension including thyromegaly. TIPS is in place. 4. Large amount of stool within the colon. WSN: [id number] Ordering Physician: Femi Berg Dictated By: Julian Rogers MD Dictated Date/Time: 05/11/22 11:14 p Reviewed By: Julian Rogers MD Signed By: Julian Rogers MD Signed Date/Time: 05/11/22 11:14 pm Transcribed By: TATE Transcribed Date/Time: 05/11/22 10:57 pm US Abdomen * [facility] , CIS S: TRANSCRIBE Kendy FERNANDEZ, Sarath: VERIFY Romy Calderon DO F: SIGN Event Display: Result: Authored Date: [id number] US Ascites REASON: Distention; Clinical Question(s): Ascites COMPARISON: CT abdomen 05/11/2022 and Ultrasound 03/24/2022 TECHNIQUE: Grayscale limited abdominal ultrasound of the 4 quadrants. FINDINGS: No ascites is seen. IMPRESSION: No ascites. I have personally reviewed the images and I agree with this report. WSN: [id number] Ordering Physician: Eric Saleem Dictated By: Kvng RODRIGUEZ Romy F Dictated Date/Time: 05/14/22 5:08 pm Reviewed By: Sarath Larry MD Signed By: Sarath Larry MD Signed Date/Time: 05/14/22 5:13 pm Transcribed By: TATE Transcribed Date/Time: 05/14/22 5:01 pm Patient Care team information Care Team Personnel Name: Bj Rivera MD Position: [facility] GI MD Member Role: Lifetime Consulting Physician Address: Address: [address] [place] [address] [address] [facility] [address] Name: Aimee Pereira RN Position: S RN Member Role: Primary Care Nurse Name: Linda Sandy RN Position: S RN Member Role: Primary Care Nurse Name: Virgil Campos RN Position: [facility] RN Member Role: Primary Care Nurse Name: Cliff Mo RN Position: [facility] RN Member Role: Primary Care Nurse Name: Goldy Lamar Position: [facility] RN Member Role: Primary Care Nurse Name: Katina Kelly RN Position: [facility] RN Member Role: Primary Care Nurse Name: Rubia Merida RN Position: [facility] RN Member Role: Primary Care Nurse Name: Anibal Peace RN Position: [facility] RN Member Role: Primary Care Nurse Name: Colleen Leal RN Position: [facility] RN Member Role: Primary Care Nurse Name: Davonte Rosario RN Position: [facility] RN Member Role: Primary Care Nurse Name: Not on Staff, PCP Position: [facility] Physician (General Medicine) Member Role: PCP Name: Kemal Pulido MD Position: [facility] Renal MD Member Role: Lifetime Consulting Physician Address: Address: [address] [place] [address] [address] [facility] [place] [address]- Name: Mariam Melendrez RN Position: [facility] RN Member Role: Primary Care Nurse Name: Leticia Lobato RN Position: [facility] RN Member Role: Primary Care Nurse Name: Kyle Lui RN Position: [facility] RN Member Role: Primary Care Nurse Name: Janett Mendoza RN Position: S RN Member Role: Primary Care Nurse Name: Dimas Vazquez RN Position: [facility] RN Member Role: Primary Care Nurse Name: Tyson Blum MD Position: [facility] Renal MD Member Role: Lifetime Consulting Physician Address: Address: [address] [place] [address] [facility] [place] [place] [address]- Name: Emma Barkley RN Position: [facility] RN Member Role: Primary Care Nurse Name: Emma Hardy RN Position: [facility] RN Member Role: Primary Care Nurse Name: Janell Gomez Position: [facility] RN Member Role: Primary Care Nurse Name: Orlando Conn RN Position: [facility] RN Member Role: Primary Care Nurse Name: Kentrell MURCIA Attending Position: [facility] ED Medicine MD Name: Danish RODRIGUEZ, Angel Position: [facility] Resident Member Role: ED Resident Address: Address: [address] [place] [address] [place] [address]- Care Team Related Persons Name: MELANIE AGGARWAL Address: home [address] [place] [address] Name: LUIS F ROBERTS Address: home [address] [place] [address]
--- OUTSIDE RECORDS SUMMARY | 2023-11-20 18:03 | XMS_ITS | Continuity of Care Document ---
Author Organization [facility] Address [address] [place] [address]- Care Team Providers Care Evaporator Supervisor Name Role Phone Theodora Goode MD Primary Care Physician Encounter [facility] Date(s): 12/18/21 - 03/10/22 [facility] [address] [place] [address]- Attending Physician: Teja Arnold MD Admitting Physician: Teja Arnold MD Referring Physician: Theodora Goode MD Allergies, Adverse Reactions, Alerts Substance Reaction [...] 04/20/22 15:20:00 EDT, 11/03/21 15:20:00 EDT, Tablet, [facility], Partial fill upon patient request if the prescription is for a schedule II opioid drug., 158,... Start Date: 11/03/21 Stop Date: 04/20/22 Status: Ordered gabapentin 300 mg oral capsule 600 mg, 2, capsule, By Mouth, 2 times a day, # 28 capsule, Refills 0, Tot. Refills 0, Maintenance, 12/02/21 8:48:00 EST, [id number] Partial fill upon patient request if the prescription is for a schedule II o... Start Date: 06/08/21 Stop Date: 06/15/21 Status: Ordered lactulose 10 gm/15 ml oral syrup 30 mL = 20 Gm, By Mouth, 4 times a day, for 14 days, # 1,680 mL, 3 Refills, Hard Stop 04/20/22 15:00:00 EDT, 02/23/22 15:00:00 EDT, Syrup, [facility]/pharmacy #[id number], Partial fill upon patient request if theprescription is for a schedule II opioid drug., 157... Start Date: 02/23/22 Stop Date: 04/20/22 Status: Ordered lactulose 10 gm/15 ml oral syrup 30 mL = 20 Gm, By Mouth, 4 times a day, # 1,680 mL, 3 Refills, Maintenance, 03/07/22 7:54:00 EDT, Syrup, [facility]/pharmacy #[id number], Partial fill upon patient request if the prescription is for a schedule IIopioid drug., 30 mL By Mouth 4 times a day,x14 days... Start Date: 03/07/22 Stop Date: 05/02/22 Status: Ordered Lasix 40 mg oral tablet 40 mg, 1, tablet, By Mouth, Daily, # 30 tablet, Refills 3, Tot. Refills 3, Maintenance, 02/24/22 13:24:00 EDT, Route to Pharmacy Electronically, [facility], Partial fill [...] tablet, 1 Refills, Maintenance, 02/24/22 13:25:00 EDT, [facility], 157, cm, 02/22/22 5:10:00 EDT, Height, 73.9, kg, ... Start Date: 02/24/22 Status: Ordered spironolactone 100 mg oral tablet 100 mg, 1, tablet, By Mouth, Daily, # 7 tablet, Refills 0, Tot. Refills 0, Maintenance, 06/08/21 8:48:00 EST, Route to Pharmacy Electronically, [facility]/pharmacy #[id number], Partial fill upon patient request if the prescription is for a schedule II opioid drug.... Start Date: 06/08/21 Stop Date: 06/15/21 Status: Ordered Zofran 4 mg oral tablet 1 tablet = 4 mg, By Mouth, Every 8 hours, PRN as needed for nausea/vomiting, # 40 tablet, 2 Refills, Maintenance, 02/02/22 10:18:00 EDT, Tablet, [facility]/pharmacy #[id number], Partial fill upon patient [...] 30 days. Sex Care Team Personnel Name: Thedoora Goode MD Address: [address] [place] [address], [address] [facility] Primary [place], [place] [address]
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
--- OUTSIDE RECORDS SUMMARY | 2023-11-20 18:03 | XMS_ITS | Continuity of Care Document ---
Author Organization [facility] Address [address] [place] [address]- Care Team Providers Care Wet Crown Blocking Operator Name Role Phone Theodora Goode MD Primary Care Physician Encounter [facility] Date(s): 12/20/21 - 01/20/22 [facility] [address] [place] [id number]- Attending Physician: Luis Arcos MD Admitting Physician: Luis Arcos MD Referring Physician: Theodora Goode MD Allergies, [...] 04/20/22 15:20:00 EDT, 11/03/21 15:20:00 EDT, Tablet, [facility], Partial fill upon patient [...]
--- OUTSIDE RECORDS SUMMARY | 2023-11-20 18:03 | XMS_ITS | Continuity of Care Document ---
Author Organization [facility] Address [address] [place] [address]- Care Team Providers Care Cut Off Operator Scorer Name Role Phone Rupa FERNANDEZ, Theodora Melendez Primary Care Physician [phone] Encounter [facility] Date(s): 11/24/21 - 01/13/22 [facility] [address] [place] [id number]- Attending Physician: Teja Arnold MD Admitting Physician: [...] 04/20/22 15:20:00 EDT, 11/03/21 15:20:00 EDT, Tablet, [facility], Partial fill upon patient [...]
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
--- OUTSIDE RECORDS SUMMARY | 2023-11-20 18:03 | XMS_ITS | Continuity of Care Document ---
Author Organization [facility] Address [address] [place] [address]- Care Team Providers Care Tripe Scraper Name Role Phone Rupa FERNANDEZ, Theodora Melendez Primary Care Physician Encounter [facility] Date(s): 12/21/21 - 01/21/22 [facility] [address] [place] [id number]- Attending Physician: Yanely Berry MD Admitting Physician: Yanely Berry MD Allergies, Adverse Reactions, Alerts No Known [...] 04/20/22 15:20:00 EDT, 11/03/21 15:20:00 EDT, Tablet, [facility], Partial fill upon patient [...]
--- OUTSIDE RECORDS SUMMARY | 2023-11-20 18:03 | XMS_ITS | Continuity of Care Document ---
Author Organization [facility] G[facility] Address [address] [place] [address]- Care Team Providers Care Mining Analyst Name Role Phone Rupa FERNANDEZ, Theodora Melendez Primary Care Physician Encounter [facility] Date(s): 07/25/21 - 08/30/21 [facility] [address] [place] [address]- Attending Physician: Bj Rivera MD Admitting Physician: Bj Rivera MD Referring Physician: Not on Staff, Referring [...] 06/08/21 8:45:00 EST, Route to Pharmacy Electronically, [facility]/pharmacy #[id number], Partial fill upon patient request ifthe prescription is for a schedule II opioid drug.,... Start Date: 06/08/21 Stop Date: 06/15/21 Status: Ordered furosemide 40 mg oral tablet 40 mg, 1, tablet, By Mouth, 2 times a day, # 14 tablet, Refills 0, Tot. Refills 0, Maintenance, 06/08/21 8:47:00 EST, Route to Pharmacy Electronically, [facility]/pharmacy #[id number], Partial fill upon patient request if the prescription is for a schedule II opio... Start Date: 06/08/21 Stop Date: 06/15/21 Status: Ordered gabapentin 300 mg oral capsule 300 mg, 1, capsule, By Mouth, 3 times a day, # 21 capsule, Refills 0, Tot. Refills 0, Maintenance, 06/08/21 8:48:00 EST, Route to Pharmacy Electronically, [facility]/pharmacy #[id number], Partial fill upon patient request [...] 06/08/21 8:48:00 EST, Route to Pharmacy Electronically, [facility]/pharmacy #[id number], Partial fill upon patient request [...]
--- OUTSIDE RECORDS SUMMARY | 2023-11-20 18:03 | XMS_ITS | Continuity of Care Document ---
Author Organization [facility] ter Address [address] [place] [address]- Care Team Providers Care Policy And Planning Manager Name Role Phone Rupa FERNANDEZ, Theodora Melendez Primary Care Physician Encounter [facility] Date(s): 02/20/22 - 02/23/[address] [id number] Discharge Disposition: A-D/C Home Attending Physician: Freeman Pickens MD Admitting Physician: Janett Moses DO Referring [...] 04/20/22 15:20:00 EDT, 11/03/21 15:20:00 EDT, Tablet, [facility], Partial fill upon patient request if the prescription is for a schedule II opioid drug., 158,... Start Date: 11/03/21 Stop Date: 04/20/22 Status: Ordered gabapentin 300 mg oral capsule 600 mg, Capsule, By Mouth, 02/23/22 9:00:00 EDT Start Date: 02/23/22 Stop Date: 02/23/22 Status: Completed gabapentin 300 mg oral capsule 600 mg, 2, capsule, By Mouth, 2 times a day, # 28 capsule, Refills 0, Tot. Refills 0, Maintenance, 06/08/21 8:48:00 EST, Route to Pharmacy Electronically, [facility]/pharmacy #[id number], Partial fill upon patient request if the prescription is for a schedule II o... Start Date: 06/08/21 Stop Date: 06/15/21 Status: Ordered lactulose 10 gm/15 ml oral syrup 30 mL = 20 Gm, By Mouth, 4 times a day, # 1,680 mL, 3 Refills, Maintenance, 02/23/22 15:00:00 EDT, Syrup, [facility]/pharmacy #[id number], Partial fill upon patient request if the prescription is for a schedule II opioid drug., 30 mL By Mouth 4 times a day,x14 day... Start Date: 02/23/22 Stop Date: 04/20/22 Status: Ordered Lasix 40 mg oral tablet 40 mg, 1, tablet, By Mouth, Daily, # 30 tablet, Refills 3, Tot. Refills 3, Maintenance, 12/29/21 14:22:00 EDT, Route to Pharmacy Electronically, [facility]/pharmacy #[id number], Partial fill upon patient request if [...] Methadone Liquid 22 mg, Solution, By Mouth, 02/23/22 9:00:00 EDT Start Date: 02/23/22 Stop Date: 02/23/22 Status: Completed spironolactone 100 mg oral tablet 100 mg, 1, tablet, By Mouth, Daily, # 7 tablet, Refills 0, Tot. Refills 0, Maintenance, 06/08/21 8:48:00 EST, Route to Pharmacy Electronically, [facility]/pharmacy #[id number], Partial fill upon patient request if the prescription is for a schedule II opioid drug.... Start Date: 06/08/21 Stop Date: 06/15/21 Status: Ordered Tylenol 325 mg oral tablet 975 mg, Tablet, By Mouth, 02/23/22 9:00:00 EDT Start Date: 02/23/22 Stop Date: 02/23/22 Status: Completed Zofran 4 mg oral tablet 1 tablet = 4 mg, By Mouth, Every 8 hours, PRN as needed for nausea/vomiting, # 40 tablet, 2 Refills, Maintenance, 02/02/22 10:18:00 EDT, Tablet, [facility]/pharmacy #[id number], Partial fill upon patient request if [...] for Microbiology Reports Name Date Blood Culture (BLOOD CULTURE) 02/20/22 Blood Culture 02/20/22 Blood Culture #2 02/20/22 Microbiology Reports TEST:Blood Culture STATUS:Unauthenticated BODY SITE: SOURCE:Blood COLLECTED DATE/TIME:02/20/22 3:41 PM Blood Culture SPECIMEN DESCRIPTION : BLOOD LAC SPECIAL REQUESTS : NONE CULTURE : NO GROWTH AFTER 48 HOURS REPORT STATUS : PRELIMINARY REPORT TEST:Blood Culture, Second Order STATUS:Unauthenticated BODY SITE: SOURCE:Blood COLLECTED DATE/TIME:02/20/22 3:41 PM Blood Culture, Second Order SPECIMEN DESCRIPTION : BLOOD R AC SPECIAL REQUESTS : NONE CULTURE : NO GROWTH AFTER 48 HOURS REPORT STATUS : PRELIMINARY REPORT TEST:Blood Culture STATUS:Unauthenticated BODY SITE: SOURCE:Blood COLLECTED DATE/TIME:02/20/22 12:23 PM Blood Culture SPECIMEN DESCRIPTION : BLOOD LAC SPECIAL REQUESTS : NONE CULTURE : NO GROWTH 3 DAYS REPORT STATUS : PRELIMINARY REPORT Vital Signs Most recent to oldest [Reference Range]: 1 2 3 Height 157 cm (02/22/22 5:10 AM) 157 cm (02/21/22 7:44 PM) 157 cm (02/21/22 6:01 AM) Weight 73.9 kg (02/21/22 6:01 AM) 73.9 kg (02/21/22 5:51 AM) 72.8 kg (02/20/22 7:30 PM) Oxygen Saturation [94-100 %] 100 % (02/23/22 5:00 AM) 100 % (02/22/22 8:00 PM) 97 % (02/22/22 2:00 PM) Pulse Rate [55-90 bpm] 58 bpm (02/23/22 5:00 AM) 73 bpm (02/22/22 8:00 PM) 100 bpm *H* (02/22/22 2:00 PM) Body Mass Index [18.5-24.99] 29.98 *H* (02/21/22 6:01 AM) 29.98 *H* (02/21/22 5:51 AM) 29.53 *H* (02/20/22 5:05 PM) Blood Pressure [90-138/55-84 mm Hg] 99/54mm Hg (02/23/22 5:00 AM) 110/55mm Hg (02/22/22 8:00 PM) 135/63mm Hg (02/22/22 2:00 PM) Respiratory Rate [16-30 br/min] 17 br/min (02/23/22 9:25 AM) 17 br/min (02/23/22 9:25 AM) 17 br/min (02/23/22 9:24 AM) Temperature [96.8-100.4 DegF] 97.9 DegF (02/23/22 5:00 AM) 98.4 DegF (02/22/22 8:00 PM) 99.3 DegF (02/22/22 2:00 PM) Mode of Delivery (Oxygen) Room air (02/23/22 5:00 AM) Room air (02/22/22 8:00 PM) Room air (02/22/22 2:00 PM) Blood pressure sites Arm, right (02/23/22 5:00 AM) Arm, right (02/22/22 8:00 PM) Arm, right (02/22/22 2:00 PM) Temperature Route Oral (02/23/22 5:00 AM) Oral (02/22/22 8:00 PM) Oral (02/22/22 2:00 PM) Dry Weight 73.9 kg (02/21/22 5:51 AM) 72.8 kg (02/20/22 7:30 PM) 72.8 kg (02/20/22 5:15 PM) Weight Obtained Via Bed scale (02/21/22 6:01 AM) Bed scale (02/21/22 5:51 AM) Patient/family stated (02/20/22 11:11 AM) Dry Weight Obtained Via Patient/family stated (02/20/22 11:30 AM) Patient/family stated (02/20/22 11:11 AM) Social History Social History Type Response Tobacco Use: 4 or less cigar ettes(less than 1/4 pack)/day in last 30 days. Sex
[2023-11-20 18:13] LABS: HCG Quantitative < 2 mIU/mL
[2023-11-20 21:50] VITALS: BP 116/48; PULSE 64; RESP 20; TEMP 36.8; O2SAT 96
[2023-11-20] MEDS: Lactulose 20 GM/30 ML SOLUTION 30 GM PO (22:59)
[2023-11-20 23:46] VITALS: BP 116/48; PULSE 64; RESP 20; TEMP 36.8; O2SAT 96
== END 2023-11-20 23:47 | disposition home or self-care (01) ==
PROVIDERS: Physician Assistant; Registered Nurse Emergency; Emergency Provider Internal Medicine
DX: K70.30 Alcoholic cirrhosis of liver without ascites (principal)
CPT/HCPCS: 36415; 80053; 82140; 82150; 83690; 84702; 85025; 99283

== ENCOUNTER 2023-11-21 15:27 | Emergency (ER) | payer MEDICAID, SELFPAY ==
[2023-11-21 16:34] VITALS: BP 114/63; PULSE 64; RESP 16; TEMP 37.1; O2SAT 97; BMI 24.9
--- NOTE | 2023-11-21 16:42 | ED.GENADULT ---
HPI - General Adult General Chief complaint: General Medical Stated complaint: NOT FEELING WELL Time Seen by Provider: 11/21/23 18:51 Source: patient, RN notes reviewed and old records reviewed Mode of arrival: ambulatory Limitations: no limitations History of Present Illness HPI narrative: 43-year-old female with past medical history significant for alcoholic liver cirrhosis She was seen here last night and given a dose of lactulose. Patient reports that she went to garbage pick up worker her prescription today and was told ?my insurance would not cover it because it is too early. ? Patient has no further complaints but is requesting a dose of lactulose She does not feel confused She reports feeling ?a little shaky and off. ? Denies any pain, nausea vomiting fevers, chills No other complaints or concerns at this time Related Data Previous Rx's ?Medication ?Instructions ?Recorded lactulose 10 gram/15 mL (15 mL) 45 ml PO TID #1,440 mL 11/20/23 oral solution Allergies Allergy/AdvReac Type Severity Reaction Status Date / Time No Known Allergies Allergy Verified 11/21/23 16:38 Review of Systems Constitutional: Constitutional: Denies body ache(s), Denies chills, Denies fever(s) and Denies headache(s) Eyes: Eyes: Denies blurry vision ENT: Denies headache(s) and Denies sore throat Cardiovascular: Cardiovascular: Denies chest pain and Denies dyspnea Respiratory: Respiratory: Denies cough and Denies dyspnea Gastrointestinal: Gastrointestinal: Denies abdominal pain Musculoskeletal: Musculoskeletal: Denies back pain Integumentary/Breasts: Skin/Breast: Denies rash Neurologic: Denies headache(s) PMFSH Social History Social History Advance Directives: No Advance Directives Information Provided: No Do you have a plan to hurt others: No Plan Physical Exam ED Vital Signs: Vital Signs - 24 hr 11/21/23 16:34 Temperature 98.8 F Pulse Rate 64 Respiratory Rate 16 Blood Pressure 114/63 Pulse Oximetry 97 Oxygen Delivery Method Room Air BMI result Body Mass Index 24.9 Const General: healthy appearing, comfortable, no acute distress, alert and awake Nutritional Appearance: well nourished Orientation/consciousness: patient oriented x3 HENMT Head: Yes normocephalic and Yes atraumatic Eyes Eyelids: Yes eyelids normal Conjunctivae: conjunctivae normal Sclerae: sclerae normal Corneas: corneas normal Pupils: Equal, round and reactive pupils present EOM: EOMs intact bilaterally Neck Neck: Yes full ROM Resp Effort & Inspection: normal respiratory effort, able to speak in complete sentences and not labored Cardio Rate: regular rate Rhythm: regular rhythm GI Palpation (GI): Soft to palpation, not firm, nontender, no guarding and not rigid Skin General skin exam: elasticity normal Neuro General: patient oriented x3 Cranial nerves: Yes Equal, round and reactive pupils present and Yes Bilaterally intact EOM present Cognition (Neuro): normal cognition Extrem Other: Moving all extremities well without any obvious deformities Course Course Course Narrative: RME performed by Shakira Kennedy PA-C. Patient is a 43 year old assigned female at presenting to the emergency department requesting lactulose. Patient states she has not been able to get her medication refilled and she needs this. Detailed physical exam and review of systems are deferred to the respiratory clinician. Patient placed back in the waiting room pending room availability. Medical Decision Making Medical Decision Making [facility] Narrative: I reviewed the patient's workup from last night. Her ammonia was elevated to 98. However she is not confused. She is awake alert and oriented. Will give a dose of lactulose and discharge the patient. She has no further complaints Differential Diagnosis Differential Diagnoses: The differential diagnosis associated with the presentation includes Alcoholic liver cirrhosis Hepatic encephalopathy Medication noncompliance med refill Discharge Plan Discharge Clinical Impression: Alcoholic cirrhosis Patient Disposition: Home, Self-Care Instructions: Cirrhosis (ED) Additional Instructions: Your prescription was we transmitted to [facility] on beats treat earlier this morning. Your given a dose of lactulose in the emergency department Follow-up with your outpatient provider Prescriptions: No Action lactulose 10 gram/15 mL (15 mL) solution 45 ml PO TID Qty: 1440 3RF Print Language: Icelandic
[2023-11-21 19:16] VITALS: BP 116/68; PULSE 66; RESP 18; TEMP 36.8; O2SAT 97
[2023-11-21] MEDS: Lactulose 20 GM/30 ML SOLUTION 30 GM PO (19:19)
[2023-11-21 19:20] VITALS: BP 116/68; PULSE 66; RESP 18; TEMP 36.8; O2SAT 97
== END 2023-11-21 19:21 | disposition home or self-care (01) ==
PROVIDERS: Emergency Provider Internal Medicine
DX: K70.30 Alcoholic cirrhosis of liver without ascites (principal)
CPT/HCPCS: 99282; 99283